=== PATIENT | female | born 1935 | race Two or more races ===

== ENCOUNTER 2016-04-25 17:35 | Inpatient (IN) | payer MEDICARE, MEDICAID ==
[~2016-04-25] VITALS: Ht 160 cm; Wt 61.7 kg
[~2016-04-25 17:35] MED LIST: ASPIR 8181 MG ORAL; ATIVAN0.5 MG ORAL; ATORVASTATIN CA10 MG ORAL; ATORVASTATIN CA40 MG ORAL; BACTRIM-DS1 EA ORAL; BENADRYL25 M3 PO; BENADRYL50 MG/ML IM; BISACODYL5 MG ORAL; CEFAZOLIN2 GM/1001 IV; CEFTRIAXON2 GM/50 ML IV; CEFTRIAXONE2 G1 IVPB; CEFTRIAXONE2 G2 IV; CLONIDINE HCL0.1 MG PO; CLONIDINE0.1 MG GT; CLONIDINE0.1 MG PO; COLACE100 MG ORAL; CRANBERRY450 M3 PO; CRANBERRY500 M4 PO; DEXTROSE 50%-WA50 M1 IV; DUONEB 0.5-3(2.53 ML HHN; FEOSOL325 MG ORAL; FUROSEMIDE10 MG/1 M1 IJ; GEODON20 MG ORAL; HEPARIN SO5000 UNIT2 SUBQ; HUMALOG100 UNIT/4 SUBQ; IBUPROFEN600 MG ORAL; IPRATROPIU0.2 MG/1 M HHN; LEVEMIR FL100 UNIT/1 SUBQ; LOPRESSOR1 MG/ML IV; LORAZEPAM0.5 MG ORAL; MAG-OXIDE400 M1 PO; METOPROLOL TART25 MG ORAL; MIRALAX17 G2 ORAL; MORPHINE 22 MG/1 ML IV; NEPHRO-VITE RX1 EAC1 PO; NORVASC10 MG ORAL; NOVOLOG100 UNIT/3 SUBQ; NUEDEXTA 20-101 EAC1 PO; OMEPRAZOLE20 M2 ORAL; PANTOPRAZOLE SO40 MG ORAL; PRILOSEC OTC20 MG ORAL; PROTONIX20 MG ORAL; RESTORIL15 MG ORAL; RESTORIL22.5 MG PO; ROCEPHIN2 GM IM; SALINE 10ML FLU10 ML IVF; TYLENOL EXTRA500 MG ORAL; TYLENOL325 MG ORAL; UTI-STAT L3875 MG/31 PO; ZOFRAN 4 MG4 MG/2 ML IV; ZOSYN 3.373.375 GM/1 IVPB; ZYPREXA5 MG ORAL; ZYPREXA7.5 MG ORAL
[2016-04-25 19:19] LABS: MEAN CORPUSCULAR HEMOGLOBIN 30.5 PG (27.0-31.0); MEAN CORPUSCULAR HGB CONC 31.4 G/DL (32.0-36.0); MEAN CORPUSCULAR VOLUME 97 FL (80-99); MEAN PLATELET VOLUME 6.7 FL (6.5-10.1); PLATELET COUNT 526 K/UL (150-450); RED BLOOD COUNT 4.85 M/UL (4.20-5.40); RED CELL DISTRIBUTION WIDTH 15.1 % (11.6-14.8)
[2016-04-25 19:21] LABS: WHITE BLOOD COUNT 22.9 K/UL (4.8-10.8)
[2016-04-25] MEDS ORDERED: Piperacillin/Tazobactam 3.375 GM in NS 110 ML IVPB ONE (19:30)
[2016-04-25] MEDS ORDERED: metroNIDAZOLE 500mg 100 ML IVPB ONE (19:30)
--- NOTE | 2016-04-25 19:33 | Emergency Room Report ---
History of Present Illness General Chief Complaint: Abnormal Labs Source: Medical Record, EMS Present Illness HPI The patient is sent in for abnormal labs. Apparently she's not had dialysis for over a week. G tube. The patient is post stroke and cannot communicate. She was discharged in February with these diagnoses: 1. Acute respiratory failure requiring bilevel positive airway pressure, resolved. 2. Acute on chronic renal failure likely due to diabetic and hypertensive kidney disease. 3. Congestive heart failure. 4. Diastolic dysfunction in exacerbation. 5. Chronic obstructive pulmonary disease exacerbation. 6. Hypertension. 7. Morbid obesity. 8. Acute deep venous thrombosis. 9. Non-ST elevated myocardial infarction. 10. Atrial fibrillation with rapid ventricular response. 11. Sepsis with Escherichia coli bacteremia. 12. Urinary tract infection with Escherichia coli. 13. Diabetes mellitus, out of control with diabetic nephropathy. 14. Sacral stage III pressure ulcer, present on admission. Allergies: Coded Allergies: No Known Allergies (Unverified , 01/06/14) Patient History Limited by: medical condition Past Medical History: see triage record Past Surgical History: other - vascath Social History Narrative SNF Reviewed Nursing Documentation: PMH: Agreed, PSxH: Agreed Nursing Documentation-PMH Hx Cardiac Problems: Yes - anemia, hyperlipidemia, osteoarthritis Hx Hypertension: Yes Hx COPD: Yes Hx Diabetes: Yes Hx Cancer: No Hx Gastrointestinal Problems: Yes - severe protien calorie malnutrition Hx Dialysis: No - ckd Hx Neurological Problems: Yes - Dementia, Encephalopathy Hx Dementia: No Hx Dizziness: Yes Hx Syncope: Yes Review of Systems All Other Systems: limited Physical Exam Vital Signs Date Time Temp Pulse Resp B/P Pulse Ox O2 Delivery O2 Flow Rate FiO2 04/25/16 17:28 99.5 98 20 146/74 99 Nasal Cannula 2.0 Sp02 EP Interpretation: reviewed, normal General Appearance: well appearing, no apparent distress, GCS 15 Head: normocephalic Eyes: bilateral eye PERRL, bilateral eye normal inspection ENT: moist mucus membranes Neck: supple Respiratory: lungs clear, normal breath sounds, other - vascath R Cardiovascular #1: regular rate, rhythm, edema - trace Cardiovascular #2: 2+ radial (R) Gastrointestinal: normal inspection, normal bowel sounds, non tender, no mass, non-distended Musculoskeletal: other - contracture Neurologic: responsive, aphasia, motor weakness - R hemiparesis Psychiatric: depressed affect Skin: normal inspection, warm/dry Medical Decision Making Diagnostic Impression: Primary Impression: Sepsis Qualified Codes: A41.9 - Sepsis, unspecified organism Additional Impressions: Acute hypernatremia UTI (urinary tract infection) Qualified Codes: N10 - Acute pyelonephritis ESRD (end stage renal disease) ER Course This is an extremely complicated patient as she is unable to give a history. Evaluation is undertaken with labs and EKG, chest x-ray. She needed to have acute dialysis at this time. The patient's white count returns extremely high. Cultures will be obtained and also the patient will be started on antibiotics. The x-ray may have increased frye in the right base although this is difficult because the patient has a history of renal failure. Other considerations are line sepsis and UTI. Evidence of pyuria. Also evidence of ESRD, though no emergent dialysis indicated. Improved with treatment and more responsive. Admit med, Dr. Swift. (Upgraded to tele by Dr. Khalil). Laboratory Tests Test 04/25/16 18:50 04/25/16 19:40 White Blood Count 22.9 K/UL (4.8-10.8) *H Red Blood Count 4.85 M/UL (4.20-5.40) Hemoglobin 14.8 G/DL (12.0-16.0) Hematocrit 47.0 % (37.0-47.0) Mean Corpuscular Volume 97 FL (80-99) Mean Corpuscular Hemoglobin 30.5 PG (27.0-31.0) Mean Corpuscular Hemoglobin Concent 31.4 G/DL (32.0-36.0) L Red Cell Distribution Width 15.1 % (11.6-14.8) H Platelet Count 526 K/UL (150-450) H Mean Platelet Volume 6.7 FL (6.5-10.1) Neutrophils (%) (Auto) % (45.0-75.0) Lymphocytes (%) (Auto) % (20.0-45.0) Monocytes (%) (Auto) % (1.0-10.0) Eosinophils (%) (Auto) % (0.0-3.0) Basophils (%) (Auto) % (0.0-2.0) Differential Total Cells Counted 100 Neutrophils % (Manual) 70 % (45-75) Lymphocytes % (Manual) 26 % (20-45) Monocytes % (Manual) 4 % (1-10) Eosinophils % (Manual) 0 % (0-3) Basophils % (Manual) 0 % (0-2) Band Neutrophils 0 % (0-8) Platelet Estimate Increased H Platelet Morphology Normal Polychromasia 1+ Anisocytosis 1+ Macrocytosis 1+ Prothrombin Time 10.6 SEC (9.30-11.50) Prothrombin Time INR 1.0 (0.9-1.1) PTT 25 SEC (23-33) Sodium Level 163 mEQ/L (135-145) *H Potassium Level 4.3 mEQ/L (3.4-4.9) Chloride Level 113 mEQ/L (98-107) H Carbon Dioxide Level 30 mEQ/L (20-30) Anion Gap 20 (5-15) H Blood Urea Nitrogen 132 mg/dL (7-23) H Creatinine 3.8 mg/dL (0.5-0.9) H Estimate Glomerular Filtration Rate mL/min (>60) Glucose Level 297 mg/dL (74-106) H Lactic Acid Level 1.90 mmol/L (0.66-2.22) Calcium Level 10.4 mg/dL (8.6-10.2) H Total Bilirubin 0.2 mg/dL (0.0-1.2) Aspartate Amino Transferase (AST) 56 U/L (5-40) H Alanine Aminotransferase (ALT) 82 U/L (3-33) H Alkaline Phosphatase 100 U/L (35-104) Total Creatine Kinase 69 U/L (26-140) Troponin I < 0.30 ng/mL (<=0.30) Pro-B-Type Natriuretic Peptide 8341 pg/mL (0-450) H Total Protein 8.4 g/dL (6.6-8.7) Albumin 3.9 g/dL (3.5-5.2) Globulin 4.5 g/dL Albumin/Globulin Ratio 0.8 (1.0-2.7) L Urine Color Yellow Urine Appearance Slightly cloudy Urine pH 5 (4.5-8.0) Urine Specific [place] 1.015 (1.005-1.035) Urine Protein 4+ (NEGATIVE) H Urine Glucose (UA) 2+ (NEGATIVE) H Urine Ketones Negative (NEGATIVE) Urine Occult Blood 1+ (NEGATIVE) H Urine Nitrite Negative (NEGATIVE) Urine Bilirubin Negative (NEGATIVE) Urine Urobilinogen Normal MG/DL (0.0-1.0) Urine Leukocyte Esterase 2+ (NEGATIVE) H Urine RBC 2-4 /HPF (0 - 2) H Urine WBC 40-60 /HPF (0 - 2) H Urine Squamous Epithelial Cells Few /LPF (NONE/OCC) Urine Bacteria Many /HPF (NONE) H Urine Yeast Many /HPF (NONE) H EKG Diagnostic Results Rate: normal Rhythm: NSR ST Segments: no acute changes Rhythm Strip Diag. Results EP Interpretation: yes Rhythm: NSR, no PVC's, no ectopy Chest X-Ray Diagnostic Results EP Interpretation: Yes Findings: no effusion, no pneumothorax, other - increase frye R Number of Views: 1 Last Vital Signs Date Time Temp Pulse Resp B/P Pulse Ox O2 Delivery O2 Flow Rate FiO2 04/26/16 01:14 172/74 04/26/16 00:40 97.7 87 16 97 Room Air 04/26/16 00:30 2.0 Status: improved Disposition: ADMITTED INPATIENT Condition: Serious Referrals: FRANDY SWIFT (PCP) Conor Baez M.D. Apr 25, 2016 19:33
[2016-04-25 19:35] LABS: PROTHROMBIN TIME 10.6 SEC (9.30-11.50)
[2016-04-25] MEDS ORDERED: D5W 275 ML ONE (19:45)
[2016-04-25] MEDS ORDERED: NS 110 ML ONE (19:45)
[2016-04-25] MEDS ORDERED: Zosyn 3.375gm inj ONE (19:45)
[2016-04-25] MEDS: Vancomycin 1 GM in D5W 275 ML IVPB ONE ×2 (19:45→21:45)
[2016-04-25] MEDS ORDERED: Vancomycin 1gm inj IVPB ONE (19:45)
[2016-04-25 19:50] LABS: ALANINE AMINOTRANSFERASE 82 U/L (3-33); ALBUMIN/GLOBULIN RATIO 0.8 (1.0-2.7); ASPARTATE AMINO TRANSFERASE 56 U/L (5-40); CALCIUM 10.4 mg/dL (8.6-10.2); CARBON DIOXIDE 30 mEQ/L (20-30); CHLORIDE 113 mEQ/L (98-107); CREATININE 3.8 mg/dL (0.5-0.9); HEMOLYSIS 0; POTASSIUM 4.3 mEQ/L (3.4-4.9); TOTAL PROTEIN 8.4 g/dL (6.6-8.7); TROPONIN I < 0.30 ng/mL (<=0.30)
[2016-04-25 20:06] LABS: ANION GAP 20 (5-15)
[2016-04-25 20:20] LABS: SODIUM 163 mEQ/L (135-145)
[2016-04-25 20:22] LABS: APPEARANCE,URINE SLIGHTLY CLOUDY; KETONES,URINE NEGATIVE (NEGATIVE); LEUKOCYTE ESTERASE ,URINE 2+ (NEGATIVE); NITRITE,URINE NEGATIVE (NEGATIVE); PH,URINE 5 (4.5-8.0); PROTEIN,URINE 4+ (NEGATIVE); UROBILINOGEN,URINE NORMAL MG/DL (0.0-1.0)
[2016-04-25 20:27] LABS: LYMPHOCYTES % (MANUAL) 26 % (20-45); NEUTROPHILS % (MANUAL) 70 % (45-75); TOTAL CELLS COUNTED 100
[2016-04-25 20:28] LABS: BAND NEUTROPHILS % (MANUAL) 0 % (0-8); BASOPHILS % (MANUAL) 0 % (0-2); EOSINOPHILS % (MANUAL) 0 % (0-3); PLATELET ESTIMATE INCREASED
[2016-04-25 20:29] LABS: ANISOCYTOSIS 1+; MACROCYTES 1+; PLATELET MORPHOLOGY NORMAL; POLYCHROMASIA 1+
[2016-04-25 20:34] LABS: BACTERIA,URINE MANY /HPF; SQUAMOUS EPITHELIAL CELL,UR FEW /LPF (NONE/OCC); WBC,URINE 40-60 /HPF (0 - 2); YEAST,URINE MANY /HPF
[2016-04-25 21:48] VITALS: BP 166/63
[2016-04-25] MEDS ORDERED: Nitroglycerin Subl 0.4mg tab (Bottle Of 25) SL PRN (22:45)
[2016-04-25] MEDS ORDERED: Miralax 17gm pkt ORAL PRN (22:45)
[2016-04-25] MEDS ORDERED: Morphine Sulfate 2mg/ml Inj IVP PRN (22:45)
[2016-04-25] MEDS ORDERED: DuoNeb 0.5-3(2.5)mg/3ml neb HHN PRN (22:45)
[2016-04-25 23:35] VITALS: BP 159/62
[2016-04-26] VITALS (7 sets, daily range): BP systolic 122–172; BP diastolic 50–78
[2016-04-26] MEDS ORDERED: Vancomycin 1 GM in D5W 275 ML IV SCH (00:30)
[2016-04-26] MEDS ORDERED: Cefepime 1gm vial ONE (02:36)
[2016-04-26] MEDS: Cefepime 1gm/D5W 55ml IVPB SCH ×2 (02:44)
[2016-04-26 02:48] LABS: APPEARANCE,URINE CLOUDY; KETONES,URINE NEGATIVE (NEGATIVE); LEUKOCYTE ESTERASE ,URINE 3+ (NEGATIVE); NITRITE,URINE NEGATIVE (NEGATIVE); PH,URINE 5 (4.5-8.0); PROTEIN,URINE 3+ (NEGATIVE); UROBILINOGEN,URINE NORMAL MG/DL (0.0-1.0)
[2016-04-26 03:02] LABS: BACTERIA,URINE MANY /HPF; SQUAMOUS EPITHELIAL CELL,UR FEW /LPF (NONE/OCC); WBC,URINE TNTC /HPF (0 - 2); YEAST,URINE MANY /HPF
[2016-04-26] MEDS: NovoLOG Insulin Flexpen SUBQ SCH ×4 (06:24→21:36)
--- NOTE | 2016-04-26 08:56 | Infectious Diseases Prog Note ---
Assessment/Plan Problems: (1) Sepsis Assessment & Plan: due to UTI, and foot infection, will start zyvox and cefepime empirically, send blood culture (2) Gangrene of foot Assessment & Plan: recommend field reviewer eval, will order ESR, CRP and MRI of the foot to rule out osteomyelitis (3) Open wnd foot-complicated Assessment & Plan: with escars, consult field reviewer, continue local wound care and off loading (4) DM (diabetes mellitus) Assessment & Plan: recommend tight glycemic control to keep blood glucose between 80-120 (5) UTI (urinary tract infection) Assessment & Plan: on cefepime, await culture (6) Acute hypernatremia Assessment & Plan: due to dehydration, continue IVF, monitor sodium level, and electrolytes Subjective Allergies: Coded Allergies: No Known Allergies (Unverified , 01/06/14) Objective Vital Signs Last 24 Hour Vital Signs Date Time Temp Pulse Resp B/P Pulse Ox O2 Delivery O2 Flow Rate FiO2 04/26/16 08:11 97.7 75 18 134/60 98 Room Air 04/26/16 06:23 159/72 04/26/16 04:00 78 04/26/16 04:00 97.6 76 20 138/59 95 Room Air 04/26/16 01:14 172/74 04/26/16 01:00 87 04/26/16 00:40 97.7 87 16 172/74 97 Room Air 04/26/16 00:30 98.4 90 20 161/78 95 Room Air 2.0 04/26/16 00:10 98.4 90 20 161/78 95 Room Air 2.0 04/25/16 23:35 98.4 93 19 159/62 99 Room Air 04/25/16 21:48 99.0 93 19 166/63 96 Room Air 04/25/16 17:28 99.5 98 20 146/74 99 Nasal Cannula 2.0 Height (Feet): 5 Height (Inches): 3.00 Weight (Pounds): 133 Laboratory Tests Test 04/25/16 18:50 04/25/16 19:40 04/26/16 02:30 White Blood Count 22.9 K/UL (4.8-10.8) *H Red Blood Count 4.85 M/UL (4.20-5.40) Hemoglobin 14.8 G/DL (12.0-16.0) Hematocrit 47.0 % (37.0-47.0) Mean Corpuscular Volume 97 FL (80-99) Mean Corpuscular Hemoglobin 30.5 PG (27.0-31.0) Mean Corpuscular Hemoglobin Concent 31.4 G/DL (32.0-36.0) L Red Cell Distribution Width 15.1 % (11.6-14.8) H Platelet Count 526 K/UL (150-450) H Mean Platelet Volume 6.7 FL (6.5-10.1) Neutrophils (%) (Auto) % (45.0-75.0) Lymphocytes (%) (Auto) % (20.0-45.0) Monocytes (%) (Auto) % (1.0-10.0) Eosinophils (%) (Auto) % (0.0-3.0) Basophils (%) (Auto) % (0.0-2.0) Differential Total Cells Counted 100 Neutrophils % (Manual) 70 % (45-75) Lymphocytes % (Manual) 26 % (20-45) Monocytes % (Manual) 4 % (1-10) Eosinophils % (Manual) 0 % (0-3) Basophils % (Manual) 0 % (0-2) Band Neutrophils 0 % (0-8) Platelet Estimate Increased H Platelet Morphology Normal Polychromasia 1+ Anisocytosis 1+ Macrocytosis 1+ Prothrombin Time 10.6 SEC (9.30-11.50) Prothromb Time International Ratio 1.0 (0.9-1.1) Activated Partial Thromboplast Time 25 SEC (23-33) Sodium Level 163 mEQ/L (135-145) *H Potassium Level 4.3 mEQ/L (3.4-4.9) Chloride Level 113 mEQ/L (98-107) H Carbon Dioxide Level 30 mEQ/L (20-30) Anion Gap 20 (5-15) H Blood Urea Nitrogen 132 mg/dL (7-23) H Creatinine 3.8 mg/dL (0.5-0.9) H Estimat Glomerular Filtration Rate mL/min (>60) Glucose Level 297 mg/dL (74-106) H Lactic Acid Level 1.90 mmol/L (0.66-2.22) Calcium Level 10.4 mg/dL (8.6-10.2) H Total Bilirubin 0.2 mg/dL (0.0-1.2) Aspartate Amino Transf (AST/SGOT) 56 U/L (5-40) H Alanine Aminotransferase (ALT/SGPT) 82 U/L (3-33) H Alkaline Phosphatase 100 U/L (35-104) Total Creatine Kinase 69 U/L (26-140) Troponin I < 0.30 ng/mL (<=0.30) Pro-B-Type Natriuretic Peptide 8341 pg/mL (0-450) H Total Protein 8.4 g/dL (6.6-8.7) Albumin 3.9 g/dL (3.5-5.2) Globulin 4.5 g/dL Albumin/Globulin Ratio 0.8 (1.0-2.7) L Urine Color Yellow Yellow Urine Appearance Slightly cloudy Cloudy Urine pH 5 (4.5-8.0) 5 (4.5-8.0) Urine Specific [place] 1.015 (1.005-1.035) 1.015 (1.005-1.035) Urine Protein 4+ (NEGATIVE) H 3+ (NEGATIVE) H Urine Glucose (UA) 2+ (NEGATIVE) H 1+ (NEGATIVE) H Urine Ketones Negative (NEGATIVE) Negative (NEGATIVE) Urine Occult Blood 1+ (NEGATIVE) H 4+ (NEGATIVE) H Urine Nitrite Negative (NEGATIVE) Negative (NEGATIVE) Urine Bilirubin Negative (NEGATIVE) Negative (NEGATIVE) Urine Urobilinogen Normal MG/DL (0.0-1.0) Normal MG/DL (0.0-1.0) Urine Leukocyte Esterase 2+ (NEGATIVE) H 3+ (NEGATIVE) H Urine RBC 2-4 /HPF (0 - 2) H 10-15 /HPF (0 - 2) H Urine WBC 40-60 /HPF (0 - 2) H Tntc /HPF (0 - 2) H Urine Squamous Epithelial Cells Few /LPF (NONE/OCC) Few /LPF (NONE/OCC) Urine Bacteria Many /HPF (NONE) H Many /HPF (NONE) H Urine Yeast Many /HPF (NONE) H Many /HPF (NONE) H Urine Eosinophils Few Urine Osmolality Pending Urine Random Sodium 35 mmol/L Urine Random Chloride 17 mmol/L Urine Potassium Timed 37 mmol/L Current Medications Medications (Trade) Dose Ordered Sig/Issa Route PRN Reason Start Time Stop Time Status Last Admin Dose Admin Acetaminophen (Tylenol) 650 mg Q4H PRN ORAL fever 04/25/16 22:45 05/25/16 22:44 Albuterol/ Ipratropium 3 ml 3 ml EVERY 4 HOURS PRN HHN Shortness of Breath 04/25/16 22:45 04/30/16 22:44 Amlodipine Besylate (Norvasc) 10 mg DAILY ORAL 04/26/16 09:00 05/26/16 08:59 Cefepime HCl 1 gm/ Dextrose 55 ml @ 110 mls/hr Q24H IVPB 04/26/16 03:00 05/03/16 02:59 04/26/16 02:44 Clonidine HCl (Catapres) 0.1 mg Q6HR GT 04/26/16 00:00 05/26/16 00:00 04/26/16 06:23 Dextromethorphan/ Quinidine (Nuedexta Capsule) 1 cap BID ORAL 04/26/16 09:00 05/26/16 08:59 UNV Dextrose STAT PRN IV Hypoglycemia 04/25/16 22:45 05/25/16 22:44 Heparin Sodium (Porcine) (Heparin 5000 units/ml) 5,000 units EVERY 12 HOURS SUBQ 04/26/16 09:00 05/26/16 08:59 Insulin Aspart (NovoLOG) BEFORE MEALS AND HS SUBQ 04/26/16 06:30 05/26/16 06:29 04/26/16 06:24 Linezolid (Zyvox) 300 ml @ 300 mls/hr Q12HR IVPB 04/26/16 09:00 05/03/16 08:59 UNV Morphine Sulfate (Morphine Sulfate) 2 mg EVERY 4 HOURS PRN IVP Moderate Pain (Pain Scale 4-6) 04/25/16 22:45 05/02/16 22:44 Nitroglycerin (Ntg) 0.4 mg Every 5 Minutes PRN SL Prn Chest Pain 04/25/16 22:45 05/25/16 22:44 Olanzapine (ZyPREXA) 7.5 mg DAILY ORAL 04/26/16 09:00 05/26/16 08:59 Ondansetron HCl (Zofran) 4 mg Q6H PRN IVP Nausea & Vomiting 04/25/16 22:45 05/25/16 22:44 Pantoprazole (Protonix) 40 mg EVERY 12 HOURS ORAL 04/26/16 09:00 05/26/16 08:59 Polyethylene Glycol (Miralax) 17 gm DAILYPRN PRN ORAL Constipation 04/25/16 22:45 05/25/16 22:44 Sodium Chloride 1,000 ml @ 75 mls/hr [id number] IV 04/26/16 01:00 05/26/16 00:59 04/26/16 01:54 Temazepam (Restoril) 15 mg HSPRN PRN ORAL Insomnia 04/25/16 22:45 05/02/16 22:44 Vancomycin HCl/ Dextrose (Vancomycin/D5W) 275 ml @ 183.3 mls/ hr Q24H IV 04/26/16 00:30 05/01/16 00:29 UNV Ziprasidone (Geodon) 20 mg TWICE A DAY ORAL 04/26/16 09:00 05/26/16 08:59 Virginia Matamoros M.D. Apr 26, 2016 08:56
[2016-04-26] MEDS ORDERED: Cefepime HCl 2 GM in D5W 110 ML IV SCH (09:00)
[2016-04-26] MEDS ORDERED: Ziprasidone 20mg cap ORAL SCH (09:00)
[2016-04-26] MEDS ORDERED: Nuedexta Capsule 20/10mg ORAL SCH (09:00)
[2016-04-26] MEDS: OLANZapine 2.5mg tab ORAL SCH (09:03)
[2016-04-26] MEDS: Heparin 5000 units/ml inj SUBQ SCH ×2 (09:06→21:37)
[2016-04-26] MEDS ORDERED: D5 1/4NS 1000ml 1,000 ML IV SCH (09:30)
--- NOTE | 2016-04-26 09:43 | General Progress Note ---
Progress Note Progress Note [id number] full note dictated DAINA AVELAR Apr 26, 2016 09:43
[2016-04-26 10:06] LABS: MEAN CORPUSCULAR HEMOGLOBIN 29.9 PG (27.0-31.0); MEAN CORPUSCULAR HGB CONC 31.2 G/DL (32.0-36.0); MEAN CORPUSCULAR VOLUME 96 FL (80-99); MEAN PLATELET VOLUME 7.3 FL (6.5-10.1); PLATELET COUNT 420 K/UL (150-450); RED BLOOD COUNT 4.18 M/UL (4.20-5.40); RED CELL DISTRIBUTION WIDTH 15.1 % (11.6-14.8); WHITE BLOOD COUNT 18.2 K/UL (4.8-10.8)
[2016-04-26 10:26] LABS: ALANINE AMINOTRANSFERASE 67 U/L (3-33); ALBUMIN/GLOBULIN RATIO 0.9 (1.0-2.7); ANION GAP 18 (5-15); ASPARTATE AMINO TRANSFERASE 35 U/L (5-40); CALCIUM 9.4 mg/dL (8.6-10.2); CARBON DIOXIDE 27 mEQ/L (20-30); CHLORIDE 112 mEQ/L (98-107); CREATININE 3.4 mg/dL (0.5-0.9); HEMOLYSIS 6; POTASSIUM 3.9 mEQ/L (3.4-4.9); SODIUM 157 mEQ/L (135-145); TOTAL PROTEIN 6.9 g/dL (6.6-8.7)
[2016-04-26 10:41] LABS: ANISOCYTOSIS 1+; BAND NEUTROPHILS % (MANUAL) 1 % (0-8); BASOPHILS % (MANUAL) 0 % (0-2); EOSINOPHILS % (MANUAL) 1 % (0-3); LYMPHOCYTES % (MANUAL) 10 % (20-45); NEUTROPHILS % (MANUAL) 80 % (45-75); PLATELET ESTIMATE ADEQUATE; PLATELET MORPHOLOGY NORMAL; TOTAL CELLS COUNTED 100
[2016-04-26 10:42] LABS: HYPOCHROMASIA 1+
--- NOTE | 2016-04-26 11:36 | Diagnostic Imaging Report ---
Indication: Chest Pain Comparison: 02/14/16 A single view chest radiograph was obtained. Findings: There is right permacath present in the position. Heart is normal in size. Some prominence of the pulmonary tissue noted. Bones are osteopenic. Impression: No acute disease
--- NOTE | 2016-04-26 12:47 | Consultation ---
DATE OF CONSULTATION: 04/26/2016 NEPHROLOGY CONSULTATION CONSULTING PHYSICIAN: Sammi Lopez M.D. REFERRING PHYSICIAN: Liz Campbell REASON FOR CONSULTATION: Hypernatremia, acute renal failure and electrolyte imbalance. HISTORY OF PRESENT ILLNESS: The patient is an unfortunate 80-year-old female with past medical history significant for history of end-stage renal disease, on hemodialysis, but apparently, the patient did not receive a dialysis for a week prior to hospital visit. The patient found to have abnormal electrolytes including sodium of 163 and BUN of 132. The patient consequently was transferred to ER, was admitted in the hospital. I was called for management of renal disease and electrolyte imbalance. PAST MEDICAL HISTORY: Includin. History of end-stage renal disease. 2. History of anemia of chronic kidney disease. 3. Renal osteodystrophy. 4. Hypertension. 5. History of malleolar fracture of the left foot. 6. History of DVT. 7. History of IVC placement. 8. History of diabetes and hypertension. 9. History of non-ST elevation myocardial infarction. 10. History of COPD. 11. History of AFib. 12. History of diabetes. 13. History of sacral decubitus. 14. History of morbid obesity in the past. PAST SURGICAL HISTORY: 1. History of IVC filter placement. 2. History of PEG placement. MEDICATIONS: Includin. Amlodipine 10 mg p.o. daily. 2. Zyprexa 7.5 mg p.o. daily. 3. Protonix 40 mg p.o. daily. 4. Geodon 20 mg p.o. daily. 5. 300 mg p.o. daily. 6. Vancomycin 1 mg to be dosed by pharmacy. 7. Albuterol and Atrovent p.r.n. 8. Morphine sulfate 2 mg IV. 9. Zofran 4 mg IV. 10. Temazepam 15 mg p.r.n. 11. Nitroglycerin 0.4 mg. ALLERGIES: No known drug allergies. FAMILY HISTORY: Unknown due to the patient's condition and mental status. REVIEW OF SYSTEMS: Unable to obtain. The patient is only responsive to painful stimuli. PHYSICAL EXAMINATION: VITAL SIGNS: The patient has a temperature of 98.0 degrees, blood pressure of 172/74, pulse rate of 76, and respiratory rate of 18. HEENT/NECK: Head and neck: No JVP. No LAD. No thyromegaly. Extraocular movement intact. Pupils are reactive to light and accommodation. LUNGS: Decreased breathing sound on the both sides. CARDIAC: Regular rate and rhythm. S1 and S2. No murmur. No rub. ABDOMEN: Soft, nontender, and nondistended. EXTREMITIES: Left lower extremity is on cast. LABORATORY AND DIAGNOSTIC DATA: Laboratory values, the patient has sodium 163, potassium 4.3, chloride 113, bicarbonate 30, BUN of 132, creatinine 3.8, glucose of 297 and calcium of 10.4. AST of 54, ALT of 82, and alkaline phosphatase of 100. BNP of 8341. Serial WBC count of 22.9, hemoglobin of 14, hematocrit of 47, and platelet count of 552,000. UA revealed specific gravity of 1015, protein 3+, glucose 1+, blood 4+, WBCs are too many to count, RBCs 10-15. ASSESSMENT: 1. Hypernatremia. 2. End-stage renal disease based on the patient evaluation. 3. Hypercalcemia. 4. Severe dehydration. 5. Elevated white blood cell count and sepsis. PLAN: For patient to change IV fluids to normal D5 quarter, give free water via G-tube. I would plan for patient to receive dialysis. I would check the urine study. I would repeat ultrasound of the kidney. We would avoid any NSAID or nephrotoxic. Monitor renal function and electrolytes closely. Again, I would like to thank, Dr. Tavon Lyn, for allowing me to participate in the care of this patient. Sammi Lopez M.D. DR: Marie JOB#: [id number] CC:
--- NOTE | 2016-04-26 13:54 | Wound Care Consultation ---
Wound Assessment Wound Assessment #1: Wound Number: #1 Wound Present on Admission: Yes New Wound: No Status Change of Wound: No Wound Location Body Site Modif: right Wound Location Body Site: toe - 2nd Wound Type: scab Archana Test: Does not Archana Wound Thickness: Full Thickness Wound Length: 1.0 Wound Width: 1.0 Wound Depth: utd Percent of Wound Black/Brown: 100 Wound Drainage Amount: None Wound Drainage Odor: None/Absent Tissue Surrounding Wound: Intact Wound General Appearance: Necrotic - black scab present. Wound Assessment #2: Wound Number: #2 Wound Present on Admission: Yes New Wound: No Status Change of Wound: No Wound Location Body Site Modif: right, lower Wound Location Body Site: leg Wound Type: lesion-etiology unknown Archana Test: Does not Archana Wound Thickness: Full Thickness Wound Length: 2.0 Wound Width: 1.0 Wound Depth: utd Percent of Wound Bed Yellow/Wh: 50 Percent of Wound Black/Brown: 50 Wound Drainage Amount: None Wound Drainage Odor: None/Absent Tissue Surrounding Wound: Intact Wound General Appearance: Necrotic - 50 yellow , 50 black Wound Assessment #3: Wound Number: #3 Wound Present on Admission: Yes New Wound: No Status Change of Wound: No Wound Location Body Site Modif: right Wound Location Body Site: metatarsal head - 1st Wound Type: pressure ulcer Archana Test: Does not Archana Pressure Ulcer Stage: IV/unstageable Wound Thickness: Full Thickness Wound Length: 3.0 Wound Width: 2.0 Wound Depth: utd Percent of Wound Black/Brown: 100 Wound Drainage Amount: None Wound Drainage Odor: None/Absent Tissue Surrounding Wound: Erythemic Wound General Appearance: Necrotic Wound Assessment #4: Wound Number: #4 Wound Present on Admission: Yes New Wound: No Status Change of Wound: No Wound Location Body Site Modif: right, dorsal - aspect Wound Location Body Site: foot Wound Type: vascular issue w/vascular changes Archana Test: Does not Archana Wound Thickness: Full Thickness Wound Length: 4.0 Wound Width: 2.0 Wound Depth: utd Percent of Wound Black/Brown: 100 Wound Drainage Description: Serosanguineous Wound Drainage Amount: Scant Wound Drainage Odor: None/Absent Tissue Surrounding Wound: Erythemic Wound General Appearance: Necrotic Wound Assessment #5: Wound Number: #5 Wound Present on Admission: Yes New Wound: No Status Change of Wound: No Wound Location Body Site Modif: right, medial Wound Location Body Site: malleolus/ankle Wound Type: pressure ulcer Archana Test: Does not Archana Pressure Ulcer Stage: IV/unstageable Wound Thickness: Full Thickness Wound Length: 1.0 Wound Width: 1.0 Wound Depth: utd Percent of Wound [place]/Red: 10 Percent of Wound Black/Brown: 90 Wound Drainage Description: Serosanguineous Wound Drainage Amount: Scant Wound Drainage Odor: None/Absent Tissue Surrounding Wound: Erythemic Wound General Appearance: Reddened, Necrotic Wound Assessment #6: Wound Number: #6 Wound Present on Admission: Yes New Wound: No Status Change of Wound: No Wound Location Body Site Modif: right, medial, dorsal Wound Location Body Site: foot Wound Type: vascular issue w/vascular changes Archana Test: Does not Archana Wound Thickness: Full Thickness Wound Length: 2.0 Wound Width: 2.0 Percent of Wound Bed Yellow/Wh: 90 Percent of Wound Black/Brown: 10 Wound Drainage Description: Serosanguineous Wound Drainage Amount: Scant Wound Drainage Odor: None/Absent Tissue Surrounding Wound: Erythemic Wound General Appearance: Necrotic Wound Assessment #7: Wound Number: #7 Wound Present on Admission: Yes New Wound: No Status Change of Wound: No Wound Location Body Site Modif: right, medial Wound Location Body Site: heel Wound Type: pressure ulcer - scattered Archana Test: Does not Archana Pressure Ulcer Stage: IV/unstageable Wound Thickness: Full Thickness Wound Length: 4.0 Wound Width: 4.0 Wound Depth: utd Percent of Wound Black/Brown: 100 Wound Drainage Amount: None Wound Drainage Odor: None/Absent Tissue Surrounding Wound: Erythemic Wound General Appearance: Necrotic Wound Assessment #8: Wound Number: #8 Wound Present on Admission: Yes New Wound: No Status Change of Wound: No Wound Location Body Site Modif: right Wound Location Body Site: toe - 5th toe extending to metatarsal head Wound Type: other - dry gangrene Archana Test: Does not Archana Wound Thickness: Full Thickness Wound Length: 6.0 Wound Width: 2.5 Wound Depth: utd Percent of Wound Black/Brown: 100 Wound Drainage Amount: None Wound Drainage Odor: None/Absent Tissue Surrounding Wound: Erythemic Wound General Appearance: Blackened, Necrotic Wound Assessment #9: Wound Number: #9 Wound Present on Admission: Yes New Wound: No Status Change of Wound: No Wound Location Body Site Modif: right, mid, lateral Wound Location Body Site: foot Wound Type: pressure ulcer Archana Test: Does not Archana Pressure Ulcer Stage: IV/unstageable Wound Thickness: Full Thickness Wound Length: 4.0 Wound Width: 4.0 Wound Depth: utd Percent of Wound Black/Brown: 100 Wound Drainage Description: Serosanguineous Wound Drainage Amount: Scant Wound Drainage Odor: None/Absent Tissue Surrounding Wound: Erythemic Wound General Appearance: Necrotic Wound Assessment #10: Wound Number: #10 Wound Present on Admission: Yes New Wound: No Status Change of Wound: No Wound Location Body Site Modif: right, lateral Wound Location Body Site: heel Wound Type: pressure ulcer - scattered Archana Test: Does not Archana Pressure Ulcer Stage: IV/unstageable Wound Thickness: Full Thickness Wound Length: 4.0 Wound Width: 2.0 Wound Depth: utd Percent of Wound Black/Brown: 100 Wound Drainage Amount: None Wound Drainage Odor: None/Absent Tissue Surrounding Wound: Erythemic Wound General Appearance: Reddened, Necrotic Wound Assessment #11: Wound Number: #11 Wound Present on Admission: Yes New Wound: No Status Change of Wound: No Wound Location Body Site Modif: right, lateral Wound Location Body Site: malleolus/ankle Wound Type: pressure ulcer Archana Test: Does not Archana Pressure Ulcer Stage: IV/unstageable Wound Thickness: Full Thickness Wound Length: 0.5 Wound Width: 0.5 Wound Depth: utd Percent of Wound Black/Brown: 100 Wound Drainage Odor: None/Absent Tissue Surrounding Wound: Intact Wound General Appearance: Necrotic Wound Assessment #12: Wound Number: #12 Wound Present on Admission: Yes New Wound: No Status Change of Wound: No Wound Location Body Site Modif: posterior Wound Location Body Site: other - achilles tendon Wound Type: pressure ulcer Archana Test: Does not Archana Pressure Ulcer Stage: IV/unstageable Wound Thickness: Full Thickness Wound Length: 5.0 Wound Width: 1.0 Wound Depth: utd Percent of Wound Black/Brown: 100 Wound Drainage Amount: None Wound Drainage Odor: None/Absent Tissue Surrounding Wound: Erythemic Wound General Appearance: Reddened, Necrotic Wound Comment #1 Right second toe scab. #2 Right lower leg lesion-etiology unknown. #3 Right 1st Metatarsal Head Pressure Ulcer Stage Iv/Unstageable. #4 Right Dorsal Aspect of Foot Vascular Wound. #5 Right Medial Malleolus Pressure Ulcer Stage IV/Unstageable. #6 Right Medial Dorsal Foot Vascular Wound. #7 Right Medial Heel Scattered Pressure Ulcers Stage IV/Unstageable. #8 Right 5th Toe Extending to Metatarsal head Gangrene- Dry. #9 Right Mid Lateral Foot Pressure Ulcer Stage IV/Unstageable. #10 Right Lateral Heel Scattered Pressure Ulcers Stage IV/Unstageable. #11 Right Lateral Malleolus Pressure Ulcer Stage IV/Unstageable. #12 Posterior Achilles Pressure Ulcer Stage IV/Unstageable-Dry #13 Right and Left Buttock Scattered present with Full thickness scar tissue. Recommendation -FOLLOW UP WITH PODIATRY. -Local wound care as ordered. -Optimize Nutrition. -Offload right Foot and heel. -Heel Protectors. -Apply low air loss Overlay Mattress. -Turn and reposition. -Keep clean and dry. -Assess and follow up with MD for any changes noted. NICA WOMACK Apr 26, 2016 13:54
--- NOTE | 2016-04-26 14:01 | Wound Care Consultation ---
Wound Assessment Wound Assessment #1: Wound Number: #1 Wound Present on Admission: Yes New Wound: No Status Change of Wound: No Wound Location Body Site: sacral Wound Type: pressure ulcer Archana Test: Does not Archana Pressure Ulcer Stage: I Wound Length: 4.0 Wound Width: 4.0 Percent of Wound [place]/Red: 100 Wound Drainage Amount: None Wound Drainage Odor: None/Absent Tissue Surrounding Wound: Erythemic Wound General Appearance: Reddened Wound Assessment #2: Wound Number: #2 Wound Present on Admission: Yes New Wound: No Status Change of Wound: No Wound Location Body Site Modif: right Wound Location Body Site: buttocks Wound Type: pressure ulcer Archana Test: Does not Archana Pressure Ulcer Stage: I Wound Length: 2.0 Wound Width: 2.0 Percent of Wound [place]/Red: 100 Wound Drainage Amount: None Wound Drainage Odor: None/Absent Tissue Surrounding Wound: Erythemic Wound General Appearance: Reddened Wound Assessment #3: Wound Number: #3 Wound Present on Admission: Yes New Wound: No Status Change of Wound: No Wound Location Body Site Modif: left Wound Location Body Site: buttocks Wound Type: pressure ulcer Archana Test: Does not Archana Pressure Ulcer Stage: I Wound Length: 2.0 Wound Width: 2.0 Percent of Wound [place]/Red: 100 Wound Drainage Amount: None Wound Drainage Odor: None/Absent Tissue Surrounding Wound: Erythemic Wound General Appearance: Reddened Wound Comment #1 Sacral pressure ulcer stage I. #2 Right buttocks pressure Ulcer stage I. #3 Left buttocks pressure Ulcer stage I Recommendation. -Turn and reposition. -Apply low air loss overlay mattress. -Provide local wound care as ordered. -Offload affected areas. -Keep clean and dry. -Assess and follow up with Md for any changes noted. NICA WOMACK Apr 26, 2016 14:01
--- NOTE | 2016-04-26 14:15 | Diagnostic Imaging Report ---
Indication: many wounds. concern for osteomyelitis. O Technique: Right ankle/hind foot imaging utilizing multiplanar T1 fast spin-echo, proton and T2 fast spin-echo with fat saturation, and STIR. Comparison: None Findings: Bone marrow signal is well maintained attending: Hindfoot. There is no evidence of osteomyelitis, abscess or significant soft tissue swelling. Study was not performed for evaluation of ligaments and tendons are internal derangement. Achilles tendon and plantar aponeurosis appear unremarkable. No joint effusion identified. Impression: No evidence of osteomyelitis or abscess.
--- NOTE | 2016-04-26 15:31 | Consultation ---
History of Present Illness General Date patient seen: Apr 26, 2015 Chief Complaint: Abnormal Labs Reason for Consultation: dyspnea Present Illness HPI 80 year old female with hx of ESRF, dementia, Gtube, anxiety, [facility] resident LOTUS because of increasing stupor and abnormal labs. Patient can't give any history and all information is obtained from the chart. Pt was diagnosed to have septis and admitted to telemetry. Allergies: Coded Allergies: No Known Allergies (Unverified , 01/06/14) Medication History Scheduled Amlodipine Besylate (Norvasc), 10 MG ORAL DAILY, (Reported) Amlodipine Besylate (Norvasc), 10 MG ORAL DAILY, (Reported) Atorvastatin Calcium* (Atorvastatin Calcium*), 40 MG ORAL BEDTIME, (Reported) Ceftriaxone Na/Dextrose,Iso (Ceftriaxone 2 Gm Piggyback), 2 GM IV DAILY, ( Reported) Ceftriaxone Sod (Ceftriaxone), 2 GM IM DAILY, (Reported) Ceftriaxone Sodium (Ceftriaxone), 2 GM IV DAILY, (Reported) Ceftriaxone Sodium (Ceftriaxone), 2 GM IVPB DAILY, (Reported) Clonidine HCl (Clonidine HCl), 0.1 MG GT Q6HR Cran/Vitc/Mannose/Inulin/Brom (Uti-Stat Liquid), 3,875 MG PO BID, (Reported) Cranberry Extract (Cranberry), 450 MG PO DAILY, (Reported) Dextromethorphan Hbr/Quinidine (Nuedexta 20-10 Mg Capsule), 1 EACH PO BID, ( Reported) Dextrose 50 % In Water (Dextrose 50%-Water Vial), 50 ML IV NEEDED, (Reported) Docusate Sodium* (Docusate Sodium*), 100 MG GT TWICE A DAY, (Reported) Furosemide (Furosemide), 40 MG IJ DAILY, (Reported) Heparin Sod (Porcine) (Heparin Sodium*), 5,000 UNITS SUBQ EVERY 12 HOURS, ( Reported) Insulin Aspart* (Novolog*), 0 SUBQ AC, (Reported) Insulin Detemir (Levemir Flexpen), 20 UNITS SUBQ QHS, (Reported) Insulin Detemir (Levemir Flexpen), 10 SUBQ EVERY 12 HOURS, (Reported) Insulin Detemir (Levemir Flexpen), 30 SUBQ EVERY 12 HOURS, (Reported) Insulin Lispro (Humalog), 0 SUBQ BEFORE BREAKFAST, (Reported) Ipratropium/Albuterol Sulfate (DuoNeb 0.5-3(2.5)mg/3ml), 3 ML HHN Q4HR, ( Reported) Linezolid (Linezolid), 300 MG IV EVERY 12 HOURS, (Reported) Lorazepam* (Ativan*), 0.5 MG ORAL Q6HR, (Reported) Magnesium Oxide (Mag-Oxide), 400 MG PO BID, (Reported) Metoprolol Tartrate* (Metoprolol Tartrate*), 25 MG ORAL EVERY 12 HOURS, ( Reported) Olanzapine* (Zyprexa*), 7.5 MG ORAL HS, (Reported) Omeprazole Magnesium (Prilosec Otc), 20 MG ORAL DAILY, (Reported) Pantoprazole* (Pantoprazole*), 40 MG ORAL EVERY 12 HOURS, (Reported) Polyethylene Glycol 3350* (Miralax*), 17 GM ORAL BEDTIME, (Reported) Saline (Sodium Chloride), 10 ML IVF Q8HR, (Reported) Temazepam* (Restoril*), 15 MG ORAL BEDTIME, (Reported) [Diflucan], 200 MG IV DAILY, (Reported) Scheduled PRN Acetaminophen (Tylenol), 650 MG ORAL Q4HR PRN for Prn Pain/Headache/Temp > 101, (Reported) Acetaminophen* (Tylenol Extra Strength*), 500 MG ORAL Q6H PRN for Mild Pain/ Temp > 100.5, (Reported) Clonidine Hcl (Clonidine Hcl), 0.1 MG PO Q4HR PRN for For High Blood Pressure, ( Reported) Diphenhydramine Hcl (Diphenhydramine Hcl), 25 MG IJ EVERY 6 HOURS PRN for Itching, (Reported) Morphine Sulfate/Pf (Morphine 1 mg/2 ml Syringe), 2 MG IV EVERY 4 HOURS PRN for Severe Pain (Pain Scale 7-10), (Reported) Nitroglycerin (Nitroglycerin), 0.4 MG SL for Angina, (Reported) Ondansetron* (Zofran*), 4 MG IV Q6H PRN for Nausea & Vomiting, (Reported) Polyethylene Glycol 3350* (Miralax*), 17 GM ORAL DAILY PRN for Constipation, ( Reported) Miscellaneous Medications Amikacin Sulfate (Amikacin Sulfate*), 250 MG IJ, (Reported) Insulin Detemir (Levemir Flexpen), 0 SUBQ, (Reported) Insulin Detemir (Levemir Flexpen), 10 SUBQ, (Reported) Patient History Healthcare decision maker Azul Slade Resuscitation status Full Code Advanced Directive on File Yes Review of Systems Constitutional: Reports: fever, malaise, weakness Respiratory: Reports: SANTILLAN, shortness of breath, sputum, wheezing All Other Systems: negative except mentioned in HPI Physical Exam General Appearance: moderate distress Lines, tubes and drains: peripheral HEENT: normocephalic, atraumatic, PERRL Neck: non-tender Respiratory/Chest: chest wall non-tender, decreased breath sounds, rhonchi - bilaterally Breasts: no masses Cardiovascular/Chest: normal peripheral pulses, normal rate, regular rhythm Abdomen: normal bowel sounds, non tender, soft, no organomegaly Genitourinary/Rectal: normal genital exam, normal rectal exam Extremities: normal range of motion, non-tender, normal inspection Skin Exam: palled Neurologic: signal constructor II-XII grossly normal, responsive, disoriented, depressed affect Last 24 Hour Vital Signs Date Time Temp Pulse Resp B/P Pulse Ox O2 Delivery O2 Flow Rate FiO2 04/26/16 12:21 144/58 04/26/16 11:44 96.8 68 18 154/58 97 Room Air 04/26/16 09:45 76 16 Room Air 21 04/26/16 09:03 75 134/60 04/26/16 08:11 97.7 75 18 134/60 98 Room Air 04/26/16 06:23 159/72 04/26/16 04:00 78 04/26/16 04:00 97.6 76 20 138/59 95 Room Air 04/26/16 01:14 172/74 04/26/16 01:00 87 04/26/16 00:40 97.7 87 16 172/74 97 Room Air 04/26/16 00:30 98.4 90 20 161/78 95 Room Air 2.0 04/26/16 00:10 98.4 90 20 161/78 95 Room Air 2.0 04/25/16 23:35 98.4 93 19 159/62 99 Room Air 04/25/16 21:48 99.0 93 19 166/63 96 Room Air 04/25/16 17:28 99.5 98 20 146/74 99 Nasal Cannula 2.0 Intake and Output 04/25/16 04/26/16 18:59 06:59 Intake Total 1065 ml Output Total 340 ml Balance 725 ml Intake Free Water 100 ml IV Total 905 ml Other 60 ml Output Urine Total 340 ml Laboratory Tests Test 04/25/16 18:50 04/25/16 19:40 04/26/16 02:30 04/26/16 09:30 White Blood Count 22.9 K/UL (4.8-10.8) *H 18.2 K/UL (4.8-10.8) H Red Blood Count 4.85 M/UL (4.20-5.40) 4.18 M/UL (4.20-5.40) L Hemoglobin 14.8 G/DL (12.0-16.0) 12.5 G/DL (12.0-16.0) Hematocrit 47.0 % (37.0-47.0) 40.1 % (37.0-47.0) Mean Corpuscular Volume 97 FL (80-99) 96 FL (80-99) Mean Corpuscular Hemoglobin 30.5 PG (27.0-31.0) 29.9 PG (27.0-31.0) Mean Corpuscular Hemoglobin Concent 31.4 G/DL (32.0-36.0) L 31.2 G/DL (32.0-36.0) L Red Cell Distribution Width 15.1 % (11.6-14.8) H 15.1 % (11.6-14.8) H Platelet Count 526 K/UL (150-450) H 420 K/UL (150-450) Mean Platelet Volume 6.7 FL (6.5-10.1) 7.3 FL (6.5-10.1) Neutrophils (%) (Auto) % (45.0-75.0) % (45.0-75.0) Lymphocytes (%) (Auto) % (20.0-45.0) % (20.0-45.0) Monocytes (%) (Auto) % (1.0-10.0) % (1.0-10.0) Eosinophils (%) (Auto) % (0.0-3.0) % (0.0-3.0) Basophils (%) (Auto) % (0.0-2.0) % (0.0-2.0) Differential Total Cells Counted 100 100 Neutrophils % (Manual) 70 % (45-75) 80 % (45-75) H Lymphocytes % (Manual) 26 % (20-45) 10 % (20-45) L Monocytes % (Manual) 4 % (1-10) 8 % (1-10) Eosinophils % (Manual) 0 % (0-3) 1 % (0-3) Basophils % (Manual) 0 % (0-2) 0 % (0-2) Band Neutrophils 0 % (0-8) 1 % (0-8) Platelet Estimate Increased H Adequate Platelet Morphology Normal Normal Polychromasia 1+ Anisocytosis 1+ 1+ Macrocytosis 1+ Prothrombin Time 10.6 SEC (9.30-11.50) Prothromb Time International Ratio 1.0 (0.9-1.1) Activated Partial Thromboplast Time 25 SEC (23-33) Sodium Level 163 mEQ/L (135-145) *H 157 mEQ/L (135-145) H Potassium Level 4.3 mEQ/L (3.4-4.9) 3.9 mEQ/L (3.4-4.9) Chloride Level 113 mEQ/L (98-107) H 112 mEQ/L (98-107) H Carbon Dioxide Level 30 mEQ/L (20-30) 27 mEQ/L (20-30) Anion Gap 20 (5-15) H 18 (5-15) H Blood Urea Nitrogen 132 mg/dL (7-23) H 122 mg/dL (7-23) H Creatinine 3.8 mg/dL (0.5-0.9) H 3.4 mg/dL (0.5-0.9) H Estimat Glomerular Filtration Rate mL/min (>60) mL/min (>60) Glucose Level 297 mg/dL (74-106) H 382 mg/dL (74-106) H Lactic Acid Level 1.90 mmol/L (0.66-2.22) Calcium Level 10.4 mg/dL (8.6-10.2) H 9.4 mg/dL (8.6-10.2) Total Bilirubin 0.2 mg/dL (0.0-1.2) 0.4 mg/dL (0.0-1.2) Aspartate Amino Transf (AST/SGOT) 56 U/L (5-40) H 35 U/L (5-40) Alanine Aminotransferase (ALT/SGPT) 82 U/L (3-33) H 67 U/L (3-33) H Alkaline Phosphatase 100 U/L (35-104) 79 U/L (35-104) Total Creatine Kinase 69 U/L (26-140) Troponin I < 0.30 ng/mL (<=0.30) Pro-B-Type Natriuretic Peptide 8341 pg/mL (0-450) H Total Protein 8.4 g/dL (6.6-8.7) 6.9 g/dL (6.6-8.7) Albumin 3.9 g/dL (3.5-5.2) 3.3 g/dL (3.5-5.2) L Globulin 4.5 g/dL 3.6 g/dL Albumin/Globulin Ratio 0.8 (1.0-2.7) L 0.9 (1.0-2.7) L Urine Color Yellow Yellow Urine Appearance Slightly cloudy Cloudy Urine pH 5 (4.5-8.0) 5 (4.5-8.0) Urine Specific [place] 1.015 (1.005-1.035) 1.015 (1.005-1.035) Urine Protein 4+ (NEGATIVE) H 3+ (NEGATIVE) H Urine Glucose (UA) 2+ (NEGATIVE) H 1+ (NEGATIVE) H Urine Ketones Negative (NEGATIVE) Negative (NEGATIVE) Urine Occult Blood 1+ (NEGATIVE) H 4+ (NEGATIVE) H Urine Nitrite Negative (NEGATIVE) Negative (NEGATIVE) Urine Bilirubin Negative (NEGATIVE) Negative (NEGATIVE) Urine Urobilinogen Normal MG/DL (0.0-1.0) Normal MG/DL (0.0-1.0) Urine Leukocyte Esterase 2+ (NEGATIVE) H 3+ (NEGATIVE) H Urine RBC 2-4 /HPF (0 - 2) H 10-15 /HPF (0 - 2) H Urine WBC 40-60 /HPF (0 - 2) H Tntc /HPF (0 - 2) H Urine Squamous Epithelial Cells Few /LPF (NONE/OCC) Few /LPF (NONE/OCC) Urine Bacteria Many /HPF (NONE) H Many /HPF (NONE) H Urine Yeast Many /HPF (NONE) H Many /HPF (NONE) H Urine Eosinophils Few Urine Osmolality Pending Urine Random Sodium 35 mmol/L Urine Random Chloride 17 mmol/L Urine Potassium Timed 37 mmol/L Hypochromasia 1+ Vancomycin Level Trough 20.6 ug/mL (5.0-12.0) H Height (Feet): 5 Height (Inches): 3.00 Weight (Pounds): 133 Medications Current Medications Medications (Trade) Dose Ordered Sig/Issa Route PRN Reason Start Time Stop Time Status Last Admin Dose Admin Acetaminophen (Tylenol) 650 mg Q4H PRN ORAL fever 04/25/16 22:45 05/25/16 22:44 Albuterol/ Ipratropium (DuoNeb 0.5-3(2.5)mg/3ml) 3 ml EVERY 4 HOURS PRN HHN Shortness of Breath 04/25/16 22:45 04/30/16 22:44 Amlodipine Besylate (Norvasc) 10 mg DAILY ORAL 04/26/16 09:00 05/26/16 08:59 04/26/16 09:03 Cefepime HCl 1 gm/ Dextrose 55 ml @ 110 mls/hr Q24H IVPB 04/26/16 03:00 05/03/16 02:59 04/26/16 02:44 Clonidine HCl (Catapres) 0.1 mg Q6HR GT 04/26/16 00:00 05/26/16 00:00 04/26/16 12:21 Dextromethorphan/ Quinidine (Nuedexta Capsule) 1 cap BID ORAL 04/26/16 09:00 05/26/16 08:59 UNV Dextrose STAT PRN IV Hypoglycemia 04/25/16 22:45 05/25/16 22:44 Dextrose/Sodium Chloride (D5 0.2%NS 1000ml) 1,000 ml @ 75 mls/hr [id number] IV 04/26/16 11:00 05/26/16 10:59 Heparin Sodium (Porcine) (Heparin 5000 units/ml) 5,000 units EVERY 12 HOURS SUBQ 04/26/16 09:00 05/26/16 08:59 04/26/16 09:06 Insulin Aspart (NovoLOG) BEFORE MEALS AND HS SUBQ 04/26/16 06:30 05/26/16 06:29 04/26/16 12:11 Linezolid 300 ml @ 300 mls/hr Q12HR IVPB 04/26/16 12:00 05/03/16 11:59 04/26/16 12:21 Morphine Sulfate (Morphine Sulfate) 2 mg EVERY 4 HOURS PRN IVP Moderate Pain (Pain Scale 4-6) 04/25/16 22:45 05/02/16 22:44 Nitroglycerin (Ntg) 0.4 mg Every 5 Minutes PRN SL Prn Chest Pain 04/25/16 22:45 05/25/16 22:44 Olanzapine (ZyPREXA) 7.5 mg DAILY ORAL 04/26/16 09:00 05/26/16 08:59 04/26/16 09:03 Ondansetron HCl (Zofran) 4 mg Q6H PRN IVP Nausea & Vomiting 04/25/16 22:45 05/25/16 22:44 Pantoprazole (Protonix) 40 mg EVERY 12 HOURS ORAL 04/26/16 09:00 05/26/16 08:59 04/26/16 09:03 Polyethylene Glycol (Miralax) 17 gm DAILYPRN PRN ORAL Constipation 04/25/16 22:45 05/25/16 22:44 Temazepam (Restoril) 15 mg HSPRN PRN ORAL Insomnia 04/25/16 22:45 05/02/16 22:44 Ziprasidone (Geodon) 20 mg TWICE A DAY ORAL 04/26/16 09:00 05/26/16 08:59 04/26/16 09:03 Assessment/Plan Status: stable, progressing, hypovolemia Assessment/Plan Assessment/Plan Problem List: (1) Sepsis ICD Codes: A41.9 - Sepsis, unspecified organism SNOMED: 58571932 (2) UTI (urinary tract infection) ICD Codes: N39.0 - UTI (urinary tract infection) SNOMED: 30254023 (3) Acute hypernatremia ICD Codes: E87.0 - Hyperosmolality and hypernatremia SNOMED: 9348317 (4) Renal insufficiency ICD Codes: N28.9 - Disorder of kidney and ureter, unspecified SNOMED: 005412310 (5) [facility] resident ICD Codes: Z59.3 - Problems related to living in residential institution SNOMED: 109606668 (6) Open wnd foot-complicated ICD Codes: S91.309A - Unspecified open wound, unspecified foot, initial encounter SNOMED: 873575121 (7) Gangrene of foot ICD Codes: I96 - Gangrene, not elsewhere classified SNOMED: 408018621 (8) HTN (hypertension) ICD Codes: I10 - Essential (primary) hypertension SNOMED: 55411337 Assessment/Plan IV hydration IV antibiotics gtube site care check electroytes resume HD if family agrees dvt prophylaxis FLAKITA YBARRA Apr 26, 2016 15:31
--- NOTE | 2016-04-26 15:45 | Consultation ---
History of Present Illness General Date patient seen: Apr 26, 2016 Chief Complaint: Abnormal Labs Referring physician: Dr. Lyn Reason for Consultation: dyspnea Present Illness HPI 80 year old female with hx of ESRF, dementia, Gtube, anxiety, alf resident LOTUS because of increasing stupor and abnormal labs. Patient can't give any history and all information is obtained from the chart. Pt was diagnosed to have septis and admitted to telemetry. Allergies: Coded Allergies: No Known Allergies (Unverified , 01/06/14) Medication History Scheduled Amlodipine Besylate (Norvasc), 10 MG ORAL DAILY, (Reported) Amlodipine Besylate (Norvasc), 10 MG ORAL DAILY, (Reported) Atorvastatin Calcium* (Atorvastatin Calcium*), 40 MG ORAL BEDTIME, (Reported) Ceftriaxone Na/Dextrose,Iso (Ceftriaxone 2 Gm Piggyback), 2 GM IV DAILY, ( Reported) Ceftriaxone Sod (Ceftriaxone), 2 GM IM DAILY, (Reported) Ceftriaxone Sodium (Ceftriaxone), 2 GM IV DAILY, (Reported) Ceftriaxone Sodium (Ceftriaxone), 2 GM IVPB DAILY, (Reported) Clonidine HCl (Clonidine HCl), 0.1 MG GT Q6HR Cran/Vitc/Mannose/Inulin/Brom (Uti-Stat Liquid), 3,875 MG PO BID, (Reported) Cranberry Extract (Cranberry), 450 MG PO DAILY, (Reported) Dextromethorphan Hbr/Quinidine (Nuedexta 20-10 Mg Capsule), 1 EACH PO BID, ( Reported) Dextrose 50 % In Water (Dextrose 50%-Water Vial), 50 ML IV NEEDED, (Reported) Furosemide (Furosemide), 40 MG IJ DAILY, (Reported) Heparin Sod (Porcine) (Heparin Sodium*), 5,000 UNITS SUBQ EVERY 12 HOURS, ( Reported) Insulin Aspart* (Novolog*), 0 SUBQ AC, (Reported) Insulin Detemir (Levemir Flexpen), 20 UNITS SUBQ QHS, (Reported) Insulin Detemir (Levemir Flexpen), 10 SUBQ EVERY 12 HOURS, (Reported) Insulin Lispro (Humalog), 0 SUBQ BEFORE BREAKFAST, (Reported) Ipratropium/Albuterol Sulfate (DuoNeb 0.5-3(2.5)mg/3ml), 3 ML HHN Q4HR, ( Reported) Lorazepam* (Ativan*), 0.5 MG ORAL Q6HR, (Reported) Magnesium Oxide (Mag-Oxide), 400 MG PO BID, (Reported) Metoprolol Tartrate* (Metoprolol Tartrate*), 25 MG ORAL EVERY 12 HOURS, ( Reported) Olanzapine* (Zyprexa*), 7.5 MG ORAL HS, (Reported) Omeprazole Magnesium (Prilosec Otc), 20 MG ORAL DAILY, (Reported) Pantoprazole* (Pantoprazole*), 40 MG ORAL EVERY 12 HOURS, (Reported) Saline (Sodium Chloride), 10 ML IVF Q8HR, (Reported) Temazepam* (Restoril*), 15 MG ORAL BEDTIME, (Reported) Ziprasidone Hcl* (Geodon*), 20 MG ORAL TWICE A DAY, (Reported) Scheduled PRN Acetaminophen (Tylenol), 650 MG ORAL Q4HR PRN for Prn Pain/Headache/Temp > 101, (Reported) Acetaminophen* (Tylenol Extra Strength*), 500 MG ORAL Q6H PRN for Mild Pain/ Temp > 100.5, (Reported) Clonidine Hcl (Clonidine Hcl), 0.1 MG PO Q4HR PRN for For High Blood Pressure, ( Reported) Ondansetron* (Zofran*), 4 MG IV Q6H PRN for Nausea & Vomiting, (Reported) Polyethylene Glycol 3350* (Miralax*), 17 GM ORAL DAILY PRN for Constipation, ( Reported) Miscellaneous Medications Insulin Detemir (Levemir Flexpen), 0 SUBQ, (Reported) Insulin Detemir (Levemir Flexpen), 10 SUBQ, (Reported) Patient History Healthcare decision maker Azul Slade Resuscitation status Full Code Advanced Directive on File Yes Past Medical/Surgical History Past Medical/Surgical History: (1) HTN (hypertension) (2) DM (diabetes mellitus) (3) Open wnd foot-complicated (4) [facility] Social History Social History: (1) [facility] Review of Systems All Other Systems: negative except mentioned in HPI Physical Exam General Appearance: WD/WN Lines, tubes and drains: peripheral HEENT: normocephalic, atraumatic Neck: non-tender, supple Respiratory/Chest: chest wall non-tender, lungs clear Cardiovascular/Chest: normal peripheral pulses, normal rate Abdomen: normal bowel sounds, non tender Genitourinary/Rectal: normal genital exam Extremities: other - extensive wounds in both feet. Last 24 Hour Vital Signs Date Time Temp Pulse Resp B/P Pulse Ox O2 Delivery O2 Flow Rate FiO2 04/26/16 12:21 144/58 04/26/16 11:44 96.8 68 18 154/58 97 Room Air 04/26/16 09:45 76 16 Room Air 21 04/26/16 09:03 75 134/60 04/26/16 08:11 97.7 75 18 134/60 98 Room Air 04/26/16 06:23 159/72 04/26/16 04:00 78 04/26/16 04:00 97.6 76 20 138/59 95 Room Air 04/26/16 01:14 172/74 04/26/16 01:00 87 04/26/16 00:40 97.7 87 16 172/74 97 Room Air 04/26/16 00:30 98.4 90 20 161/78 95 Room Air 2.0 04/26/16 00:10 98.4 90 20 161/78 95 Room Air 2.0 04/25/16 23:35 98.4 93 19 159/62 99 Room Air 04/25/16 21:48 99.0 93 19 166/63 96 Room Air 04/25/16 17:28 99.5 98 20 146/74 99 Nasal Cannula 2.0 Intake and Output 04/25/16 04/26/16 18:59 06:59 Intake Total 1065 ml Output Total 340 ml Balance 725 ml Intake Free Water 100 ml IV Total 905 ml Other 60 ml Output Urine Total 340 ml Laboratory Tests Test 04/25/16 18:50 04/25/16 19:40 04/26/16 02:30 04/26/16 09:30 White Blood Count 22.9 K/UL (4.8-10.8) *H 18.2 K/UL (4.8-10.8) H Red Blood Count 4.85 M/UL (4.20-5.40) 4.18 M/UL (4.20-5.40) L Hemoglobin 14.8 G/DL (12.0-16.0) 12.5 G/DL (12.0-16.0) Hematocrit 47.0 % (37.0-47.0) 40.1 % (37.0-47.0) Mean Corpuscular Volume 97 FL (80-99) 96 FL (80-99) Mean Corpuscular Hemoglobin 30.5 PG (27.0-31.0) 29.9 PG (27.0-31.0) Mean Corpuscular Hemoglobin Concent 31.4 G/DL (32.0-36.0) L 31.2 G/DL (32.0-36.0) L Red Cell Distribution Width 15.1 % (11.6-14.8) H 15.1 % (11.6-14.8) H Platelet Count 526 K/UL (150-450) H 420 K/UL (150-450) Mean Platelet Volume 6.7 FL (6.5-10.1) 7.3 FL (6.5-10.1) Neutrophils (%) (Auto) % (45.0-75.0) % (45.0-75.0) Lymphocytes (%) (Auto) % (20.0-45.0) % (20.0-45.0) Monocytes (%) (Auto) % (1.0-10.0) % (1.0-10.0) Eosinophils (%) (Auto) % (0.0-3.0) % (0.0-3.0) Basophils (%) (Auto) % (0.0-2.0) % (0.0-2.0) Differential Total Cells Counted 100 100 Neutrophils % (Manual) 70 % (45-75) 80 % (45-75) H Lymphocytes % (Manual) 26 % (20-45) 10 % (20-45) L Monocytes % (Manual) 4 % (1-10) 8 % (1-10) Eosinophils % (Manual) 0 % (0-3) 1 % (0-3) Basophils % (Manual) 0 % (0-2) 0 % (0-2) Band Neutrophils 0 % (0-8) 1 % (0-8) Platelet Estimate Increased H Adequate Platelet Morphology Normal Normal Polychromasia 1+ Anisocytosis 1+ 1+ Macrocytosis 1+ Prothrombin Time 10.6 SEC (9.30-11.50) Prothromb Time International Ratio 1.0 (0.9-1.1) Activated Partial Thromboplast Time 25 SEC (23-33) Sodium Level 163 mEQ/L (135-145) *H 157 mEQ/L (135-145) H Potassium Level 4.3 mEQ/L (3.4-4.9) 3.9 mEQ/L (3.4-4.9) Chloride Level 113 mEQ/L (98-107) H 112 mEQ/L (98-107) H Carbon Dioxide Level 30 mEQ/L (20-30) 27 mEQ/L (20-30) Anion Gap 20 (5-15) H 18 (5-15) H Blood Urea Nitrogen 132 mg/dL (7-23) H 122 mg/dL (7-23) H Creatinine 3.8 mg/dL (0.5-0.9) H 3.4 mg/dL (0.5-0.9) H Estimat Glomerular Filtration Rate mL/min (>60) mL/min (>60) Glucose Level 297 mg/dL (74-106) H 382 mg/dL (74-106) H Lactic Acid Level 1.90 mmol/L (0.66-2.22) Calcium Level 10.4 mg/dL (8.6-10.2) H 9.4 mg/dL (8.6-10.2) Total Bilirubin 0.2 mg/dL (0.0-1.2) 0.4 mg/dL (0.0-1.2) Aspartate Amino Transf (AST/SGOT) 56 U/L (5-40) H 35 U/L (5-40) Alanine Aminotransferase (ALT/SGPT) 82 U/L (3-33) H 67 U/L (3-33) H Alkaline Phosphatase 100 U/L (35-104) 79 U/L (35-104) Total Creatine Kinase 69 U/L (26-140) Troponin I < 0.30 ng/mL (<=0.30) Pro-B-Type Natriuretic Peptide 8341 pg/mL (0-450) H Total Protein 8.4 g/dL (6.6-8.7) 6.9 g/dL (6.6-8.7) Albumin 3.9 g/dL (3.5-5.2) 3.3 g/dL (3.5-5.2) L Globulin 4.5 g/dL 3.6 g/dL Albumin/Globulin Ratio 0.8 (1.0-2.7) L 0.9 (1.0-2.7) L Urine Color Yellow Yellow Urine Appearance Slightly cloudy Cloudy Urine pH 5 (4.5-8.0) 5 (4.5-8.0) Urine Specific [place] 1.015 (1.005-1.035) 1.015 (1.005-1.035) Urine Protein 4+ (NEGATIVE) H 3+ (NEGATIVE) H Urine Glucose (UA) 2+ (NEGATIVE) H 1+ (NEGATIVE) H Urine Ketones Negative (NEGATIVE) Negative (NEGATIVE) Urine Occult Blood 1+ (NEGATIVE) H 4+ (NEGATIVE) H Urine Nitrite Negative (NEGATIVE) Negative (NEGATIVE) Urine Bilirubin Negative (NEGATIVE) Negative (NEGATIVE) Urine Urobilinogen Normal MG/DL (0.0-1.0) Normal MG/DL (0.0-1.0) Urine Leukocyte Esterase 2+ (NEGATIVE) H 3+ (NEGATIVE) H Urine RBC 2-4 /HPF (0 - 2) H 10-15 /HPF (0 - 2) H Urine WBC 40-60 /HPF (0 - 2) H Tntc /HPF (0 - 2) H Urine Squamous Epithelial Cells Few /LPF (NONE/OCC) Few /LPF (NONE/OCC) Urine Bacteria Many /HPF (NONE) H Many /HPF (NONE) H Urine Yeast Many /HPF (NONE) H Many /HPF (NONE) H Urine Eosinophils Few Urine Osmolality Pending Urine Random Sodium 35 mmol/L Urine Random Chloride 17 mmol/L Urine Potassium Timed 37 mmol/L Hypochromasia 1+ Vancomycin Level Trough 20.6 ug/mL (5.0-12.0) H Height (Feet): 5 Height (Inches): 3.00 Weight (Pounds): 133 Medications Current Medications Medications (Trade) Dose Ordered Sig/Issa Route PRN Reason Start Time Stop Time Status Last Admin Dose Admin Acetaminophen (Tylenol) 650 mg Q4H PRN ORAL fever 04/25/16 22:45 05/25/16 22:44 Albuterol/ Ipratropium (DuoNeb 0.5-3(2.5)mg/3ml) 3 ml EVERY 4 HOURS PRN HHN Shortness of Breath 04/25/16 22:45 04/30/16 22:44 Amlodipine Besylate (Norvasc) 10 mg DAILY ORAL 04/26/16 09:00 05/26/16 08:59 04/26/16 09:03 Cefepime HCl 1 gm/ Dextrose 55 ml @ 110 mls/hr Q24H IVPB 04/26/16 03:00 05/03/16 02:59 04/26/16 02:44 Clonidine HCl (Catapres) 0.1 mg Q6HR GT 04/26/16 00:00 05/26/16 00:00 04/26/16 12:21 Dextromethorphan/ Quinidine (Nuedexta Capsule) 1 cap BID ORAL 04/26/16 09:00 05/26/16 08:59 UNV Dextrose STAT PRN IV Hypoglycemia 04/25/16 22:45 05/25/16 22:44 Dextrose/Sodium Chloride (D5 0.2%NS 1000ml) 1,000 ml @ 75 mls/hr [id number] IV 04/26/16 11:00 05/26/16 10:59 Heparin Sodium (Porcine) (Heparin 5000 units/ml) 5,000 units EVERY 12 HOURS SUBQ 04/26/16 09:00 05/26/16 08:59 04/26/16 09:06 Insulin Aspart (NovoLOG) BEFORE MEALS AND HS SUBQ 04/26/16 06:30 05/26/16 06:29 04/26/16 12:11 Linezolid 300 ml @ 300 mls/hr Q12HR IVPB 04/26/16 12:00 05/03/16 11:59 04/26/16 12:21 Morphine Sulfate (Morphine Sulfate) 2 mg EVERY 4 HOURS PRN IVP Moderate Pain (Pain Scale 4-6) 04/25/16 22:45 05/02/16 22:44 Nitroglycerin (Ntg) 0.4 mg Every 5 Minutes PRN SL Prn Chest Pain 04/25/16 22:45 05/25/16 22:44 Olanzapine (ZyPREXA) 7.5 mg DAILY ORAL 04/26/16 09:00 05/26/16 08:59 04/26/16 09:03 Ondansetron HCl (Zofran) 4 mg Q6H PRN IVP Nausea & Vomiting 04/25/16 22:45 05/25/16 22:44 Pantoprazole (Protonix) 40 mg EVERY 12 HOURS ORAL 04/26/16 09:00 05/26/16 08:59 04/26/16 09:03 Polyethylene Glycol (Miralax) 17 gm DAILYPRN PRN ORAL Constipation 04/25/16 22:45 05/25/16 22:44 Temazepam (Restoril) 15 mg HSPRN PRN ORAL Insomnia 04/25/16 22:45 05/02/16 22:44 Ziprasidone (Geodon) 20 mg TWICE A DAY ORAL 04/26/16 09:00 05/26/16 08:59 04/26/16 09:03 Assessment/Plan Problem List: (1) Sepsis ICD Codes: A41.9 - Sepsis, unspecified organism SNOMED: 10411007 (2) UTI (urinary tract infection) ICD Codes: N39.0 - UTI (urinary tract infection) SNOMED: 86542054 (3) Acute hypernatremia ICD Codes: E87.0 - Hyperosmolality and hypernatremia SNOMED: 3038553 (4) Renal insufficiency ICD Codes: N28.9 - Disorder of kidney and ureter, unspecified SNOMED: 812959089 (5) [facility] resident ICD Codes: Z59.3 - Problems related to living in residential institution SNOMED: 211289759 (6) Open wnd foot-complicated ICD Codes: S91.309A - Unspecified open wound, unspecified foot, initial encounter SNOMED: 493236840 (7) Gangrene of foot ICD Codes: I96 - Gangrene, not elsewhere classified SNOMED: 213335520 (8) HTN (hypertension) ICD Codes: I10 - Essential (primary) hypertension SNOMED: 99573978 Assessment/Plan IV hydration IV antibiotics gtube site care check electroytes resume HD if family agrees dvt prophylaxis FLAKITA YBARRA Apr 26, 2016 15:44
--- NOTE | 2016-04-26 18:26 | Consultation ---
Consult Note Consult Note Patient is unable to communicate effectively. 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 Will follow up results - [place] all wounds with betadine and cover the foot and legs with kerlix. Will monitor area of gangrene until it is demarcated - Repeat left ankle xray. History of luciano fracture. Below knee cast is currently present. Will need to remove and assess for any possible wounds - Right ankle MRI is negative for osteo - Continue current IV antibiotics per infectious disease specialist - Offload heels Wang Mukherjee DPM Apr 26, 2016 18:26
[2016-04-26] MEDS ORDERED: Cathflo Alteplase 2mg Inj INJ ONE (19:30)
--- NOTE | 2016-04-26 21:58 | History and Physical Report ---
DATE OF ADMISSION: 04/25/2016 TIME SEEN: At 3 p.m. ATTENDING PHYSICIAN: Tavon Lyn D.O. CONSULTANTS: 1. Virginia Matamoros M.D. 2. Leigh Ann Khalil M.D. 3. Sammi Lopez M.D. CHIEF COMPLAINT: Sepsis, , hypertension, and diabetes. HISTORY OF PRESENT ILLNESS: This is a 80-year-old female from [facility], presents to [facility] with weakness and nausea, was found to have sepsis and chronic renal failure, admitted to telemetry for further care. Currently, calm, lethargic, sleeping in bed, and not talking. REVIEW OF SYSTEMS: Not available. PAST MEDICAL HISTORY: Include chronic renal failure, hypertension, diabetes, and DVT. PAST SURGICAL HISTORY: Shunt. ALLERGIES: Denies. MEDICATIONS: Include , amlodipine, Zyprexa, Protonix, heparin, NovoLog, and Ceftin. SOCIAL HISTORY: No smoking. No alcohol. No intravenous drug use. FAMILY HISTORY: Noncontributory. PHYSICAL EXAMINATION: GENERAL: Calm in bed, sleeping, not talking. VITAL SIGNS: Temperature is 96, pulse 68, respirations 18, and blood pressure 144/58. CARDIOVASCULAR: No murmur. LUNGS: Poor air exchange. ABDOMEN: Bowel sounds are positive. Nontender and nondistended. EXTREMITIES: No cyanosis or clubbing. NEUROLOGIC: The patient is moving all extremities. Does not follow commands. LABORATORY DATA: Labs at this time show white count 18, hemoglobin and hematocrit 12/40, and platelets of 420,000. BMP shows sodium 157, chloride 112, BUN and creatinine 122/3.4, and glucose 382. INR is 1.0. Urinalysis showed 3+ urine. ASSESSMENT: 1. Urinary tract infection. 2. Sepsis. 3. Chronic renal failure. 4. Hypertension. 5. Diabetes. 6. Deep venous thrombosis. PLAN: Continue premedications. Antibiotics per Infectious Disease. Blood pressure and blood sugar control. Dialysis. OT/PT and dietary evaluation. CBC and BMP in the morning. Dr. Matamoros, Dr. Lopez, Dr. Khalil, and Dr. Rodrgiuez to consult. We will continue to follow this patient. Tavon Lyn D.O. DR: FRANKLIN JOB#: [id number] CC:
--- NOTE | 2016-04-26 22:57 | Consultation ---
DATE OF CONSULTATION: INFECTIOUS DISEASE CONSULTATION REQUESTING PHYSICIAN: Tavon Lyn M.D. REASON FOR CONSULTATION: Sepsis, right foot wound infection, and urinary tract infection, recommendation for antibiotics therapy. HISTORY OF PRESENT ILLNESS: The patient is a 80-year-old female with past medical history of dementia, chronic obstructive pulmonary disease, and cardiac disease, was sent to [facility] for abnormal laboratories. The patient had history of CVA in the past, cannot communicate and provide any history. History was mainly obtained from the medical record and nursing staff. The patient was febrile in the emergency room with temperature of 99.5, she is saturating 99% on two liters nasal cannula. The patient was found to have multiple wounds on her right foot and ankle and the sacrum concerning for infection and gangrenous change on the right foot. Her white count also was elevated at 22.9. The patient was started on antibiotic therapy concerning for sepsis and urine infection and I was consulted by the primary provider for antibiotics recommendation and further management. REVIEW OF SYSTEMS: Unable to obtain, the patient is demented cannot provide any history. PAST MEDICAL HISTORY: Significant for coronary artery disease, hyperlipidemia, anemia, osteoarthritis, chronic obstructive pulmonary disease, hypertension, diabetes, gastroesophageal reflux disease, dementia, encephalopathy, dizziness, and syncope. PAST SURGICAL HISTORY: G-tube placement. ALLERGIES: She has no known drug allergy. SOCIAL HISTORY: She lives at senior care facility. No recent drugs, tobacco, or alcohol. MEDICATIONS: The patient was started on cefepime and vancomycin. For the rest of her medications, please refer to the MAR. PHYSICAL EXAMINATION: VITAL SIGNS: Temperature 96.8, pulse 68, respirations 18, blood pressure 154/58, and pulse oximetry 97% on room air. GENERAL: This is an elderly female, demented, lying in bed, unresponsive to verbal commands, not in acute distress, but responds to painful stimuli. HEENT: Normocephalic and atraumatic. Pupils are reactive to light. Unable to assess oral mucosa. The patient does not follow commands. NECK: Supple. No lymphadenopathy. CARDIOVASCULAR: Regular rate and rhythm. No murmur or gallop. LUNGS: Clear bilaterally. Diminished breathing sounds at the bases. ABDOMEN: Soft, nontender, and nondistended. Positive bowel sounds. No hepatosplenomegaly or ascites. EXTREMITIES: She had right foot gangrenous changes with multiple wounds and scars with atrophy. SKIN: She had sacral decubitus and multiple right foot and ankle wounds with eschars. LABORATORY AND DIAGNOSTIC DATA: Labs showed white count of 22.9, hemoglobin of 14.8, hematocrit of 47.0, and platelet count of 526,000. BUN of 132 and creatinine of 3.8. Lactic acid of 1.9. AST of 56, ALT of 82. Urine analysis showed negative nitrites, +2 leukocyte esterase, WBC 40 to 60, and many yeast. Imaging: Chest x-ray showed no acute disease. Right ankle MRI showed no evidence of osteomyelitis or abscess. ASSESSMENT AND PLAN: 1. Sepsis due to urinary tract infection and diabetic foot infection. The patient will be continued on cefepime. We will stop vancomycin to avoid nephrotoxicity and start Zyvox instead and send blood culture and urine culture. 2. Gangrene of the right foot. Recommend Podiatry evaluation. We will send sedimentation rate, C-reactive protein. MRI of the right foot did not show any evidence of abscess or osteomyelitis. 3. Open wound of the right foot complicated with eschars and gangrene. The patient will benefit from Podiatry evaluation and local wound care. MRI did not show any abscess or osteomyelitis underlying. 4. Diabetes, recommend tight glycemic control to keep blood glucose between 80 to 120. 5. Urinary tract infection, the patient on cefepime. Await culture. 6. Acute renal failure due to dehydration. Continue intravenous fluid for hydration. Avoid nephrotoxic medicines. We will discontinue vancomycin. 7. Acute hypernatremia, suspect dehydration related. Continue intravenous fluids with close monitor of sodium level. Consult Renal. Monitor electrolytes closely. Thank you for the consult. Virginia Matamoros M.D. DR: RASHAD JOB#: [id number] CC:
[2016-04-26] MEDS: D5 1/4NS 1000ml 1,000 ML IV SCH (23:14)
[2016-04-27] VITALS (7 sets, daily range): BP systolic 114–137; BP diastolic 49–69
[2016-04-27] MEDS: D5 1/4NS 1000ml 1,000 ML IV SCH (00:20)
[2016-04-27] MEDS: Cefepime 1gm/D5W 55ml IVPB SCH ×2 (03:10)
[2016-04-27] MEDS: NovoLOG Insulin Flexpen SUBQ SCH ×4 (06:57→21:51)
[2016-04-27 07:42] LABS: BASOPHILS % (AUTO) 0.7 % (0.0-2.0); EOSINOPHILS % (AUTO) 1.4 % (0.0-3.0); LYMPHOCYTES % (AUTO) 25.6 % (20.0-45.0); MEAN CORPUSCULAR HEMOGLOBIN 30.3 PG (27.0-31.0); MEAN CORPUSCULAR HGB CONC 31.9 G/DL (32.0-36.0); MEAN CORPUSCULAR VOLUME 95 FL (80-99); MEAN PLATELET VOLUME 7.9 FL (6.5-10.1); NEUTROPHILS % (AUTO) 67.4 % (45.0-75.0); PLATELET COUNT 296 K/UL (150-450); RED BLOOD COUNT 3.71 M/UL (4.20-5.40); RED CELL DISTRIBUTION WIDTH 14.4 % (11.6-14.8)
[2016-04-27 08:07] LABS: ANION GAP 20 (5-15); CALCIUM 8.9 mg/dL (8.6-10.2); CARBON DIOXIDE 24 mEQ/L (20-30); CHLORIDE 109 mEQ/L (98-107); CREATININE 3.3 mg/dL (0.5-0.9); HEMOLYSIS 1; POTASSIUM 4.4 mEQ/L (3.4-4.9); SODIUM 153 mEQ/L (135-145)
[2016-04-27] MEDS ORDERED: Pantoprazole 40mg pkt GT SCH (09:00)
[2016-04-27] MEDS: OLANZapine 2.5mg tab ORAL SCH (09:22)
[2016-04-27] MEDS: Heparin 5000 units/ml inj SUBQ SCH ×2 (09:38→21:52)
--- NOTE | 2016-04-27 11:27 | Nephrology Progress Note ---
Assessment/Plan Assessment 1. Hypernatremia. 2. End-stage renal disease based on the patient evaluation. 3. Hypercalcemia. 4. Severe dehydration. 5. Elevated white blood cell count and sepsis. Plan plan to repeat hemodialysis today free water via g tube continue epogen iv antibiotic check phos check pre albumin Subjective Constitutional: Reports: no symptoms HEENT: Reports: no symptoms Genitourinary: Reports: no symptoms Neurologic/Psychiatric: Reports: no symptoms Subjective had dialysis yesterday but unfortunately cath didn't work well Objective Objective Last 24 Hour Vital Signs Date Time Temp Pulse Resp B/P Pulse Ox O2 Delivery O2 Flow Rate FiO2 04/27/16 10:05 75 20 Room Air 21 04/27/16 09:24 74 123/60 04/27/16 08:00 75 04/27/16 08:00 96.6 74 18 123/60 97 Room Air 04/27/16 06:00 103/50 04/27/16 04:05 97.0 70 20 129/52 100 Room Air 04/27/16 04:00 72 04/27/16 00:25 97.0 74 20 133/54 97 Room Air 04/27/16 00:21 133/54 04/27/16 00:00 73 04/26/16 20:00 97.8 75 20 122/50 95 Room Air 04/26/16 20:00 82 04/26/16 19:30 Room Air 04/26/16 19:11 74 16 Room Air 21 04/26/16 16:20 Room Air 04/26/16 16:00 72 04/26/16 16:00 97.4 72 18 129/55 97 Room Air 04/26/16 12:21 144/58 04/26/16 11:44 96.8 68 18 154/58 97 Room Air Intake and Output 04/26/16 04/27/16 19:00 07:00 Intake Total 300 ml 1035 ml Output Total 400 ml 1712 ml Balance -100 ml -677 ml IV Total 300 ml 935 ml Other 100 ml Output Urine Total 400 ml 700 ml Hemodialysis UF 1012 ml Laboratory Tests 04/27/16 00:00: Urine Eosinophils None seen, Urine Random Creatinine [Pending], Urine Random Microalbumin [Pending], Urine Random Total Protein 108, Urine Random Sodium 36, Urine Creatinine 52.8, Urine Microalbumin/Creatinine Ratio [Pending] 1/20/17 06:50: White Blood Count 17.0H, Red Blood Count 3.71L, Hemoglobin 11.3L, Hematocrit 35.3L, Mean Corpuscular Volume 95, Mean Corpuscular Hemoglobin 30.3, Mean Corpuscular Hemoglobin Concent 31.9L, Red Cell Distribution Width 14.4, Platelet Count 296, Mean Platelet Volume 7.9, Neutrophils (%) (Auto) 67.4, Lymphocytes (%) (Auto) 25.6, Monocytes (%) (Auto) 5.0, Eosinophils (%) (Auto) 1.4, Basophils (%) (Auto) 0.7, Sodium Level 153H, Potassium Level 4.4, Chloride Level 109H, Carbon Dioxide Level 24, Anion Gap 20H, Blood Urea Nitrogen 116H, Creatinine 3.3H, Estimat Glomerular Filtration Rate , Glucose Level 393H, Plasma /Serum Osmolality [Pending], Calcium Level 8.9 Height (Feet): 5 Height (Inches): 3.00 Weight (Pounds): 135 Objective HEENT/NECK: Head and neck: No JVP. No LAD. No thyromegaly. Extraocular movement intact. Pupils are reactive to light and accommodation. LUNGS: Decreased breathing sound on the both sides. CARDIAC: Regular rate and rhythm. S1 and S2. No murmur. No rub. ABDOMEN: Soft, nontender, and nondistended. EXTREMITIES: Left lower extremity is on cast. DAINA AVELAR Apr 27, 2016 11:27
--- NOTE | 2016-04-27 11:53 | Diagnostic Imaging Report ---
Indications: Left ankle pain, fracture Technique: 3 views left ankle Findings: Comparison: 01/30/16 Fiberglass cast degrades fine bony and soft tissue detail. No definite fracture currently identified. Bony alignments appear intact. No significant surrounding soft tissue swelling. IMPRESSION: No current evidence of acute abnormality, limited as described
--- NOTE | 2016-04-27 13:22 | Podiatric Progress Note ---
Assessment/Plan Patient Concha Segovia is a 80 year old female who was admitted on Apr 25, 2016 at 21:23 with right lower extremity cellulitis Problems: (1) Sepsis (2) Leukocytosis (3) Wound cellulitis (4) Gangrene of foot (5) Open wnd foot-complicated (6) DVT (deep venous thrombosis) (7) ESRD (end stage renal disease) Assessment/Plan - Right lower extremity cellulitis improving. Continue to monitor area regularly and observe for demarcation of the gangrene. Arterial ultrasound shows occlusion on the right lower extremity. Left lower extremity study was limited due to below knee cast. However, cast has been removed and vascular ultrasound is being repeated. Recommend vascular consult - Left ankle fracture is healed. Removed left below knee cast. No wounds were noted beneath - Continue antibiotics per infectious disease specialist. WBC is improving and patient remains afebrile - Offload heels Subjective Reason for consult Right lower extremity wounds and cellulitis Allergies: Coded Allergies: No Known Allergies (Unverified , 01/06/14) Subjective Patient is unable to communicate effectively Objective Exam Last 24 Hour Vital Signs Date Time Temp Pulse Resp B/P Pulse Ox O2 Delivery O2 Flow Rate FiO2 04/27/16 12:51 131/69 04/27/16 11:41 96.1 73 18 131/69 96 Room Air 04/27/16 10:05 75 20 Room Air 21 04/27/16 09:24 74 123/60 04/27/16 08:00 75 04/27/16 08:00 96.6 74 18 123/60 97 Room Air 04/27/16 06:00 103/50 04/27/16 04:05 97.0 70 20 129/52 100 Room Air 04/27/16 04:00 72 04/27/16 00:25 97.0 74 20 133/54 97 Room Air 04/27/16 00:21 133/54 04/27/16 00:00 73 04/26/16 20:00 97.8 75 20 122/50 95 Room Air 04/26/16 20:00 82 04/26/16 19:30 Room Air 04/26/16 19:11 74 16 Room Air 21 04/26/16 16:20 Room Air 04/26/16 16:00 72 04/26/16 16:00 97.4 72 18 129/55 97 Room Air Laboratory Tests Test 04/27/16 00:00 04/27/16 06:50 Urine Eosinophils None seen Urine Random Creatinine Pending Urine Random Microalbumin Pending Urine Random Total Protein 108 mg/dL Urine Random Sodium 36 mmol/L Urine Creatinine 52.8 mg/dL Urine Microalbumin/Creatinine Ratio Pending White Blood Count 17.0 K/UL (4.8-10.8) H Red Blood Count 3.71 M/UL (4.20-5.40) L Hemoglobin 11.3 G/DL (12.0-16.0) L Hematocrit 35.3 % (37.0-47.0) L Mean Corpuscular Volume 95 FL (80-99) Mean Corpuscular Hemoglobin 30.3 PG (27.0-31.0) Mean Corpuscular Hemoglobin Concent 31.9 G/DL (32.0-36.0) L Red Cell Distribution Width 14.4 % (11.6-14.8) Platelet Count 296 K/UL (150-450) Mean Platelet Volume 7.9 FL (6.5-10.1) Neutrophils (%) (Auto) 67.4 % (45.0-75.0) Lymphocytes (%) (Auto) 25.6 % (20.0-45.0) Monocytes (%) (Auto) 5.0 % (1.0-10.0) Eosinophils (%) (Auto) 1.4 % (0.0-3.0) Basophils (%) (Auto) 0.7 % (0.0-2.0) Sodium Level 153 mEQ/L (135-145) H Potassium Level 4.4 mEQ/L (3.4-4.9) Chloride Level 109 mEQ/L (98-107) H Carbon Dioxide Level 24 mEQ/L (20-30) Anion Gap 20 (5-15) H Blood Urea Nitrogen 116 mg/dL (7-23) H Creatinine 3.3 mg/dL (0.5-0.9) H Estimat Glomerular Filtration Rate mL/min (>60) Glucose Level 393 mg/dL (74-106) H Plasma/Serum Osmolality Pending Calcium Level 8.9 mg/dL (8.6-10.2) Microbiology Date/Time Source Procedure Growth Status 04/25/16 19:00 Blood Blood Culture - Preliminary NO GROWTH AFTER 24 HOURS Resulted 04/26/16 03:00 Wound Gram Stain - Final Resulted 04/26/16 03:00 Wound Wound Culture - Preliminary NO GROWTH AFTER 24 HOURS Resulted 04/26/16 02:30 Urine,Clean Catch Urine Culture - Preliminary Streptococcus Species Resulted 04/25/16 22:00 Rectum VRE Culture - Final Enterococcus Faecium - Vre Complete Exam Narrative Right lower extremity with multiple superficial wounds: Anterior leg medial and lateral malleolus, medial foot, dorsal foot, medial 1st metatarsal head. Erythema surrounding the right dorsal foot wound is improving Right 5th toe is cold and cyanotic Dermatological Wound Assessment : Exudate Amount: None Wang Mukherjee DPM Apr 27, 2016 13:22
--- NOTE | 2016-04-27 13:58 | Consultation ---
DATE OF CONSULTATION: 04/26/2016 NOTE: POOR AUDIO QUALITY PSYCHOTHERAPY CONSULTATION PROGRESS NOTE: CONSULTING PHYSICIAN: Mer Jones M.D. TREATING ATTENDING PHYSICIAN: Tavon Lyn D.O. SUBJECTIVE : The patient is a 80-year-old female. The patient lives at [facility]. The patient was brought into the hospital for sepsis and chronic renal failure as well as hypertension and diabetes. The patient has a keno terminal operator history of paranoid schizophrenia. She is lethargic. The patient looks very tired and very weak as well as poorly motivated. short of breath. She is also very , confused, and altered in her mental status. PAST MEDICAL HISTORY: Significant for history of ankle fracture, sepsis, hyperlipidemia. ALLERGIES: The patient has no known drug allergies. SUBSTANCE ABUSE HISTORY: There is no indication of alcohol, illicit substance use, or smoking cigarettes. PSYCHIATRIC HISTORY: The patient has a senior living history of paranoid schizophrenia. The patient has had multiple inpatient psychiatric hospitalizations and has been treated with psychotropic medications. SOCIAL HISTORY: The patient is a 80-year-old female. The patient is a resident of [facility]. She is financially sustained through Medicare and [employer]. MENTAL STATUS EXAMINATION: The patient is alert and oriented x1, to person. Her mood is depressed. Affect is blunted. Thought process is disorganized and illogical. The patient has poor insight, judgment, and impulse control. At this time, there is no indication of homicidal or suicidal thoughts of ideation. There is no indication of auditory or visual hallucinations. DIAGNOSES: Confluence I Paranoid schizophrenia, rule out of dementia with psychosis. Confluence II Deferred. Confluence III Per History and Physical. Confluence IV Problems with social environment. Confluence V Global assessment functioning is PLAN: This clinician assessed the patient. Provided the patient with supportive psychotherapy, reality orientation, and coping skills. Encouraging the patient to participate in treatment. Continue with medication management Mer Jones PsyD. DR: NATANAEL JOB#: [id number] CC:
--- NOTE | 2016-04-27 14:25 | General Progress Note ---
Assessment/Plan Problem List: (1) Morbid obesity ICD Codes: E66.01 - Morbid obesity SNOMED: 316889245 (2) UTI (urinary tract infection) ICD Codes: N39.0 - Urinary tract infection, site not specified SNOMED: 57121805 (3) Sepsis ICD Codes: A41.9 - Sepsis, unspecified organism SNOMED: 69400025 (4) Open wnd foot-complicated ICD Codes: S91.309A - Unspecified open wound, unspecified foot, initial encounter SNOMED: 246789674 (5) DM (diabetes mellitus) ICD Codes: E11.9 - DM (diabetes mellitus) SNOMED: 69685753 (6) ESRD (end stage renal disease) ICD Codes: N18.6 - End stage renal disease SNOMED: 59624759 Status: stable, progressing, tolerating diet Assessment/Plan ot pt diet wound care abd vasc pod eval dialysis cbc bmp am Subjective Constitutional: Reports: weakness Allergies: Coded Allergies: No Known Allergies (Unverified , 01/06/14) All Systems: reviewed and negative except above Subjective calm in bed Objective Last 24 Hour Vital Signs Date Time Temp Pulse Resp B/P Pulse Ox O2 Delivery O2 Flow Rate FiO2 04/27/16 12:51 131/69 04/27/16 11:41 96.1 73 18 131/69 96 Room Air 04/27/16 10:05 75 20 Room Air 21 04/27/16 09:24 74 123/60 04/27/16 08:00 75 04/27/16 08:00 96.6 74 18 123/60 97 Room Air 04/27/16 06:00 103/50 04/27/16 04:05 97.0 70 20 129/52 100 Room Air 04/27/16 04:00 72 04/27/16 00:25 97.0 74 20 133/54 97 Room Air 04/27/16 00:21 133/54 04/27/16 00:00 73 04/26/16 20:00 97.8 75 20 122/50 95 Room Air 04/26/16 20:00 82 04/26/16 19:30 Room Air 04/26/16 19:11 74 16 Room Air 21 04/26/16 16:20 Room Air 04/26/16 16:00 72 04/26/16 16:00 97.4 72 18 129/55 97 Room Air Intake and Output 04/26/16 04/27/16 19:00 07:00 Intake Total 300 ml 1035 ml Output Total 400 ml 1712 ml Balance -100 ml -677 ml IV Total 300 ml 935 ml Other 100 ml Output Urine Total 400 ml 700 ml Hemodialysis UF 1012 ml Laboratory Tests 04/27/16 00:00: Urine Eosinophils None seen, Urine Random Creatinine [Pending], Urine Random Microalbumin [Pending], Urine Random Total Protein 108, Urine Random Sodium 36, Urine Creatinine 52.8, Urine Microalbumin/Creatinine Ratio [Pending] 04/27/16 06:50: White Blood Count 17.0H, Red Blood Count 3.71L, Hemoglobin 11.3L, Hematocrit 35.3L, Mean Corpuscular Volume 95, Mean Corpuscular Hemoglobin 30.3, Mean Corpuscular Hemoglobin Concent 31.9L, Red Cell Distribution Width 14.4, Platelet Count 296, Mean Platelet Volume 7.9, Neutrophils (%) (Auto) 67.4, Lymphocytes (%) (Auto) 25.6, Monocytes (%) (Auto) 5.0, Eosinophils (%) (Auto) 1.4, Basophils (%) (Auto) 0.7, Sodium Level 153H, Potassium Level 4.4, Chloride Level 109H, Carbon Dioxide Level 24, Anion Gap 20H, Blood Urea Nitrogen 116H, Creatinine 3.3H, Estimat Glomerular Filtration Rate , Glucose Level 393H, Plasma /Serum Osmolality [Pending], Calcium Level 8.9 Height (Feet): 5 Height (Inches): 3.00 Weight (Pounds): 135 General Appearance: lethargic EENT: normal ENT inspection Neck: normal alignment Cardiovascular: normal peripheral pulses, normal rate, regular rhythm Respiratory/Chest: chest wall non-tender, lungs clear, normal breath sounds Abdomen: normal bowel sounds, non tender, soft Extremities: normal inspection Edema: no edema noted Arm (L), no edema noted Arm (R), no edema noted Leg (L), no edema noted Leg (R), no edema noted Pedal (L), no edema noted Pedal (R), no edema noted Generalized Neurologic: motor weakness Skin: normal pigmentation, warm/dry FRANDY SWIFT Apr 27, 2016 14:25
--- NOTE | 2016-04-27 15:29 | Pulmonology Progress Note ---
Assessment/Plan Problems: (1) Sepsis (2) UTI (urinary tract infection) (3) Acute hypernatremia (4) Renal insufficiency (5) prison resident (6) Open wnd foot-complicated (7) Gangrene of foot (8) HTN (hypertension) Assessment/Plan Plan Broad spectrum Antbx Sepsis work up IV fluid with hypotonic saline Wound care and podiatry to follow up Tight BP and BG control Subjective ROS Limited/Unobtainable: Yes Constitutional: Reports: fever Neurologic: Reports: weakness Skin: Reports: other - open foot wound with copious discharge signs of gangrene , ulcer Musculoskeletal: Reports: pain Allergies: Coded Allergies: No Known Allergies (Unverified , 01/06/14) Objective Last 24 Hour Vital Signs Date Time Temp Pulse Resp B/P Pulse Ox O2 Delivery O2 Flow Rate FiO2 04/27/16 12:51 131/69 04/27/16 11:41 96.1 73 18 131/69 96 Room Air 04/27/16 10:05 75 20 Room Air 21 04/27/16 09:24 74 123/60 04/27/16 08:00 75 04/27/16 08:00 96.6 74 18 123/60 97 Room Air 04/27/16 06:00 103/50 04/27/16 04:05 97.0 70 20 129/52 100 Room Air 04/27/16 04:00 72 04/27/16 00:25 97.0 74 20 133/54 97 Room Air 04/27/16 00:21 133/54 04/27/16 00:00 73 04/26/16 20:00 97.8 75 20 122/50 95 Room Air 04/26/16 20:00 82 04/26/16 19:30 Room Air 04/26/16 19:11 74 16 Room Air 21 04/26/16 16:20 Room Air 04/26/16 16:00 72 04/26/16 16:00 97.4 72 18 129/55 97 Room Air Intake and Output 04/26/16 04/27/16 19:00 07:00 Intake Total 300 ml 1035 ml Output Total 400 ml 1712 ml Balance -100 ml -677 ml IV Total 300 ml 935 ml Other 100 ml Output Urine Total 400 ml 700 ml Hemodialysis UF 1012 ml General Appearance: no acute distress HEENT: normocephalic, atraumatic, PERRL Respiratory/Chest: chest wall non-tender, decreased breath sounds Breasts: no masses Cardiovascular: normal peripheral pulses, normal rate, regular rhythm Abdomen: normal bowel sounds, soft, non tender, no organomegaly Genitourinary: normal external genitalia Skin: rash, lesions, ulcers Neurologic/Psychiatric: agitator operator II-XII grossly normal, no motor/sensory deficits Microbiology Date/Time Source Procedure Growth Status 04/25/16 19:00 Blood Blood Culture - Preliminary NO GROWTH AFTER 24 HOURS Resulted 04/25/16 18:50 Blood Blood Culture - Preliminary NO GROWTH AFTER 24 HOURS Resulted 04/26/16 03:00 Wound Gram Stain - Final Resulted 04/26/16 03:00 Wound Wound Culture - Preliminary NO GROWTH AFTER 24 HOURS Resulted 04/26/16 02:30 Urine,Clean Catch Urine Culture - Preliminary Streptococcus Species Resulted 04/25/16 19:40 Urine,Clean Catch Urine Culture - Preliminary Streptococcus Species Resulted 04/25/16 22:00 Rectum VRE Culture - Final Enterococcus Faecium - Vre Complete Laboratory Tests 04/27/16 00:00: Urine Eosinophils None seen, Urine Random Creatinine [Pending], Urine Random Microalbumin [Pending], Urine Random Total Protein 108, Urine Random Sodium 36, Urine Creatinine 52.8, Urine Microalbumin/Creatinine Ratio [Pending] 04/27/16 06:50: White Blood Count 17.0H, Red Blood Count 3.71L, Hemoglobin 11.3L, Hematocrit 35.3L, Mean Corpuscular Volume 95, Mean Corpuscular Hemoglobin 30.3, Mean Corpuscular Hemoglobin Concent 31.9L, Red Cell Distribution Width 14.4, Platelet Count 296, Mean Platelet Volume 7.9, Neutrophils (%) (Auto) 67.4, Lymphocytes (%) (Auto) 25.6, Monocytes (%) (Auto) 5.0, Eosinophils (%) (Auto) 1.4, Basophils (%) (Auto) 0.7, Sodium Level 153H, Potassium Level 4.4, Chloride Level 109H, Carbon Dioxide Level 24, Anion Gap 20H, Blood Urea Nitrogen 116H, Creatinine 3.3H, Estimat Glomerular Filtration Rate , Glucose Level 393H, Plasma /Serum Osmolality [Pending], Calcium Level 8.9 Current Medications Medications (Trade) Dose Ordered Sig/Issa Route PRN Reason Start Time Stop Time Status Last Admin Dose Admin Acetaminophen (Tylenol) 650 mg Q4H PRN ORAL fever 04/25/16 22:45 05/25/16 22:44 Albuterol/ Ipratropium (DuoNeb 0.5-3(2.5)mg/3ml) 3 ml EVERY 4 HOURS PRN HHN Shortness of Breath 04/25/16 22:45 04/30/16 22:44 Amlodipine Besylate (Norvasc) 10 mg DAILY ORAL 04/26/16 09:00 05/26/16 08:59 04/27/16 09:24 Cefepime HCl 1 gm/ Dextrose 55 ml @ 110 mls/hr Q24H IVPB 04/26/16 03:00 05/03/16 02:59 04/27/16 03:10 Clonidine HCl (Catapres) 0.1 mg Q6HR GT 04/26/16 00:00 05/26/16 00:00 04/27/16 12:51 Dextrose STAT PRN IV Hypoglycemia 04/25/16 22:45 05/25/16 22:44 Heparin Sodium (Porcine) (Heparin 5000 units/ml) 5,000 units EVERY 12 HOURS SUBQ 04/26/16 09:00 05/26/16 08:59 04/27/16 09:38 Insulin Aspart (NovoLOG) BEFORE MEALS AND HS SUBQ 04/26/16 06:30 05/26/16 06:29 04/27/16 12:51 Linezolid (Zyvox) 300 ml @ 300 mls/hr Q12HR IVPB 04/26/16 12:00 05/03/16 11:59 04/27/16 09:22 Morphine Sulfate (Morphine Sulfate) 2 mg EVERY 4 HOURS PRN IVP Moderate Pain (Pain Scale 4-6) 04/25/16 22:45 05/02/16 22:44 Nitroglycerin (Ntg) 0.4 mg Every 5 Minutes PRN SL Prn Chest Pain 04/25/16 22:45 05/25/16 22:44 Olanzapine (ZyPREXA) 7.5 mg DAILY ORAL 04/26/16 09:00 05/26/16 08:59 04/27/16 09:22 Ondansetron HCl (Zofran) 4 mg Q6H PRN IVP Nausea & Vomiting 04/25/16 22:45 05/25/16 22:44 Pantoprazole (Protonix) 40 mg Q12HR GT 04/27/16 09:00 05/27/16 08:59 04/27/16 09:26 Polyethylene Glycol (Miralax) 17 gm DAILYPRN PRN ORAL Constipation 04/25/16 22:45 05/25/16 22:44 Temazepam (Restoril) 15 mg HSPRN PRN ORAL Insomnia 04/25/16 22:45 05/02/16 22:44 FLAKITA YBARRA Apr 27, 2016 15:29
--- NOTE | 2016-04-27 15:46 | Diagnostic Imaging Report ---
Indications: Abdominal mass Technique: Portable supine AP abdomen Findings: Comparison: 07/23/15 Bowel gas pattern is unremarkable. Percutaneous gastrostomy tube, IVC filter, Rivera catheter now in place. Prominent arterial mural calcifications, lumbar vertebral degenerative changes again noted. IMPRESSION: No evidence of acute abdominopelvic disease, unchanged No evidence of abdominopelvic mass. Consider abdominopelvic CT scan for further evaluation as clinically indicated. Interval placement of various appliances as described. Other stable chronic changes as described.
--- NOTE | 2016-04-27 16:07 | Consultation ---
DATE OF CONSULTATION: 04/26/2016 IDENTIFYING DATA: This is a 80-year-old female. CONSULTING SPECIALTY: Podiatry. Covering for Dr Kyle Fletcher. REASON FOR CONSULTATION: Right lower extremity wounds. HISTORY OF PRESENT ILLNESS: The patient is unable to communicate effectively, so the majority of the history was obtained from reviewing the charts. PAST MEDICAL HISTORY: Right lower extremity wound, history of left ankle fracture, bilateral lower extremity DVT with IVC filter, end-stage renal disease, hypertension, chronic obstructive pulmonary disease, and atrial fibrillation. ALLERGIES: None known. ANTIBIOTICS: Linezolid and cefepime. PHYSICAL EXAMINATION: VITAL SIGNS: Temperature 97.4, pulse 72, respiratory rate 18, blood pressure of 129/85, and pulse oximetry is 97% on room air. EXTREMITIES: Right lower extremity with multiple superficial wounds with mild surrounding erythema. No purulence or drainage noted. VASCULAR: Right lower extremity pulses are lightly palpable. MUSCULOSKELETAL: Left lower extremity below knee cast. NEUROLOGICAL: The patient responds to sharp stimulus. LABORATORY DATA: On 04/26/2016, she has white blood count of 18.2, red blood count of 4.18, hemoglobin 12.5, hematocrit 40.1, platelets of 420,000, and neutrophils of 80. Sodium of 137, potassium 3.9, chloride 112, carbon dioxide is 27, BUN is 122, creatinine is 3.4, and glucose is 382. IMAGING STUDIES: On 04/26/2016, right ankle MRI is negative for osteomyelitis. ASSESSMENT: 1. Leukocytosis. 2. Right lower extremity multiple wounds with gangrene of the right fifth toe. 3. History of left ankle fracture. 4. History of bilateral lower extremity deep venous thrombosis and inferior vena cava placement. 5. End-stage renal disease, hypertension, chronic obstructive pulmonary disease, and atrial fibrillation. PLAN: 1. Vascular studies pending. Followup results. 2. Start daily wound care. 3. Repeat left ankle x-rays. 4. History of bimalleolar fracture. Below-knee cast is present. We will need to remove and assess for any possible wound. 5. Right ankle MRI is negative for osteo. Continue current IV antibiotic per infectious disease specialist. 6. Offload heel. Wang Mukherjee DPM DR: RHONDA JOB#: [id number] CC: HOMAR
--- NOTE | 2016-04-27 16:47 | Infectious Diseases Prog Note ---
Assessment/Plan Problems: (1) Sepsis Assessment & Plan: due to UTI, and foot infection, continue zyvox and cefepime empirically, await blood culture (2) Gangrene of foot Assessment & Plan: recommend drop board worker eval, MRI of the foot ruled out osteomyelitis, continue wide spectrum antibiotics and local wound care (3) Open wnd foot-complicated Assessment & Plan: with escars, consult drop board worker, continue local wound care and off loading (4) DM (diabetes mellitus) Assessment & Plan: recommend tight glycemic control to keep blood glucose between 80-120 (5) UTI (urinary tract infection) Assessment & Plan: with streptococcus sp, already on cefepime, await sensitivity (6) Acute hypernatremia Assessment & Plan: due to dehydration, continue IVF, monitor sodium level, and electrolytes (7) Colonization with VRE (vancomycin-resistant enterococcus) Assessment & Plan: keep in contact isolation Subjective ROS Limited/Unobtainable: Yes Allergies: Coded Allergies: No Known Allergies (Unverified , 01/06/14) Subjective she is demented, resting in bed, not in distress Objective Vital Signs Last 24 Hour Vital Signs Date Time Temp Pulse Resp B/P Pulse Ox O2 Delivery O2 Flow Rate FiO2 04/27/16 16:00 97.5 77 16 114/59 96 Room Air 04/27/16 12:51 131/69 04/27/16 12:00 71 04/27/16 11:41 96.1 73 18 131/69 96 Room Air 04/27/16 10:05 75 20 Room Air 21 04/27/16 09:24 74 123/60 04/27/16 08:00 75 04/27/16 08:00 96.6 74 18 123/60 97 Room Air 04/27/16 06:00 103/50 04/27/16 04:05 97.0 70 20 129/52 100 Room Air 04/27/16 04:00 72 04/27/16 00:25 97.0 74 20 133/54 97 Room Air 04/27/16 00:21 133/54 04/27/16 00:00 73 04/26/16 20:00 97.8 75 20 122/50 95 Room Air 04/26/16 20:00 82 04/26/16 19:30 Room Air 04/26/16 19:11 74 16 Room Air 21 Height (Feet): 5 Height (Inches): 3.00 Weight (Pounds): 135 General Appearance: WD/WN, no acute distress HEENT: normocephalic, atraumatic, anicteric, mucous membranes moist Respiratory/Chest: chest wall non-tender, lungs clear, normal breath sounds, no respiratory distress, no accessory muscle use Cardiovascular: normal peripheral pulses, normal rate, regular rhythm, no gallop/murmur, no JVD Abdomen: normal bowel sounds, soft, non tender, no organomegaly, non distended , no scars Extremities: no cyanosis, no clubbing, other - right ankle wound Skin: no rash, no lesions, ulcers Microbiology Date/Time Source Procedure Growth Status 04/25/16 19:00 Blood Blood Culture - Preliminary NO GROWTH AFTER 24 HOURS Resulted 04/25/16 18:50 Blood Blood Culture - Preliminary NO GROWTH AFTER 24 HOURS Resulted 04/26/16 03:00 Wound Gram Stain - Final Resulted 04/26/16 03:00 Wound Wound Culture - Preliminary NO GROWTH AFTER 24 HOURS Resulted 04/26/16 02:30 Urine,Clean Catch Urine Culture - Preliminary Streptococcus Species Resulted 04/25/16 19:40 Urine,Clean Catch Urine Culture - Preliminary Streptococcus Species Resulted 04/25/16 22:00 Rectum VRE Culture - Final Enterococcus Faecium - Vre Complete Laboratory Tests Test 04/27/16 00:00 04/27/16 06:50 Urine Eosinophils None seen Urine Random Creatinine Pending Urine Random Microalbumin Pending Urine Random Total Protein 108 mg/dL Urine Random Sodium 36 mmol/L Urine Creatinine 52.8 mg/dL Urine Microalbumin/Creatinine Ratio Pending White Blood Count 17.0 K/UL (4.8-10.8) H Red Blood Count 3.71 M/UL (4.20-5.40) L Hemoglobin 11.3 G/DL (12.0-16.0) L Hematocrit 35.3 % (37.0-47.0) L Mean Corpuscular Volume 95 FL (80-99) Mean Corpuscular Hemoglobin 30.3 PG (27.0-31.0) Mean Corpuscular Hemoglobin Concent 31.9 G/DL (32.0-36.0) L Red Cell Distribution Width 14.4 % (11.6-14.8) Platelet Count 296 K/UL (150-450) Mean Platelet Volume 7.9 FL (6.5-10.1) Neutrophils (%) (Auto) 67.4 % (45.0-75.0) Lymphocytes (%) (Auto) 25.6 % (20.0-45.0) Monocytes (%) (Auto) 5.0 % (1.0-10.0) Eosinophils (%) (Auto) 1.4 % (0.0-3.0) Basophils (%) (Auto) 0.7 % (0.0-2.0) Sodium Level 153 mEQ/L (135-145) H Potassium Level 4.4 mEQ/L (3.4-4.9) Chloride Level 109 mEQ/L (98-107) H Carbon Dioxide Level 24 mEQ/L (20-30) Anion Gap 20 (5-15) H Blood Urea Nitrogen 116 mg/dL (7-23) H Creatinine 3.3 mg/dL (0.5-0.9) H Estimat Glomerular Filtration Rate mL/min (>60) Glucose Level 393 mg/dL (74-106) H Plasma/Serum Osmolality Pending Calcium Level 8.9 mg/dL (8.6-10.2) Current Medications Medications (Trade) Dose Ordered Sig/Issa Route PRN Reason Start Time Stop Time Status Last Admin Dose Admin Acetaminophen (Tylenol) 650 mg Q4H PRN ORAL fever 04/25/16 22:45 05/25/16 22:44 Albuterol/ Ipratropium (DuoNeb 0.5-3(2.5)mg/3ml) 3 ml EVERY 4 HOURS PRN HHN Shortness of Breath 04/25/16 22:45 04/30/16 22:44 Amlodipine Besylate (Norvasc) 10 mg DAILY ORAL 04/26/16 09:00 05/26/16 08:59 04/27/16 09:24 Cefepime HCl 1 gm/ Dextrose 55 ml @ 110 mls/hr Q24H IVPB 04/26/16 03:00 05/03/16 02:59 04/27/16 03:10 Clonidine HCl (Catapres) 0.1 mg Q6HR GT 04/26/16 00:00 05/26/16 00:00 04/27/16 12:51 Dextrose STAT PRN IV Hypoglycemia 04/25/16 22:45 05/25/16 22:44 Heparin Sodium (Porcine) (Heparin 5000 units/ml) 5,000 units EVERY 12 HOURS SUBQ 04/26/16 09:00 05/26/16 08:59 04/27/16 09:38 Insulin Aspart (NovoLOG) BEFORE MEALS AND HS SUBQ 04/26/16 06:30 05/26/16 06:29 04/27/16 12:51 Linezolid (Zyvox) 300 ml @ 300 mls/hr Q12HR IVPB 04/26/16 12:00 05/03/16 11:59 04/27/16 09:22 Morphine Sulfate (Morphine Sulfate) 2 mg EVERY 4 HOURS PRN IVP Moderate Pain (Pain Scale 4-6) 04/25/16 22:45 05/02/16 22:44 Nitroglycerin (Ntg) 0.4 mg Every 5 Minutes PRN SL Prn Chest Pain 04/25/16 22:45 05/25/16 22:44 Olanzapine (ZyPREXA) 7.5 mg DAILY ORAL 04/26/16 09:00 05/26/16 08:59 04/27/16 09:22 Ondansetron HCl (Zofran) 4 mg Q6H PRN IVP Nausea & Vomiting 04/25/16 22:45 05/25/16 22:44 Pantoprazole (Protonix) 40 mg Q12HR GT 04/27/16 09:00 05/27/16 08:59 04/27/16 09:26 Polyethylene Glycol (Miralax) 17 gm DAILYPRN PRN ORAL Constipation 04/25/16 22:45 05/25/16 22:44 Temazepam (Restoril) 15 mg HSPRN PRN ORAL Insomnia 04/25/16 22:45 05/02/16 22:44 Virginia Matamoros M.D. Apr 27, 2016 16:47
[2016-04-27] MEDS ORDERED: Nitroglycerin Subl 0.4mg tab (Bottle Of 25) SL PRN (19:45)
[2016-04-27] MEDS ORDERED: Morphine Sulfate 2mg/ml Inj IVP PRN (21:00)
[2016-04-27] MEDS ORDERED: DuoNeb 0.5-3(2.5)mg/3ml neb HHN PRN (21:00)
[2016-04-27] MEDS: Pantoprazole Inj IV SCH (21:52)
[2016-04-27] MEDS ORDERED: Miralax 17gm pkt ORAL PRN (22:45)
--- NOTE | 2016-04-27 23:57 | Consultation ---
DATE OF CONSULTATION: 04/27/2016 CARDIOLOGY CONSULTATION REFERRING PHYSICIAN: Tavon Lyn D.O. REASON FOR CONSULTATION: Management of tachycardia as well as congestive heart failure. HISTORY OF PRESENT ILLNESS: The patient is a very unfortunate 80-year-old female, who was brought in for abnormal laboratories. Apparently, she had not been on dialysis for just about a week prior to her arrival to this hospital. Unfortunately, at baseline, she is demented and is not communicating. Her cardiac history is significant for history of congestive heart failure, mainly diastolic dysfunction that may need diastolic as well as history of nmn-CZ-[id number] myocardial infarction and atrial fibrillation with rapid ventricular response. On arrival to this hospital, her 12-lead electrocardiogram showed sinus rhythm. Her blood pressure was 146/74 mmHg. PAST MEDICAL HISTORY: 1. History of respiratory failure requiring positive airway pressure. 2. History of end-stage renal disease on hemodialysis. 3. History of congestive heart failure, mainly diastolic heart failure. 4. History of chronic obstructive pulmonary disease. 5. History of hypertension. 6. History of morbid obesity. 7. History of deep vein thrombosis. 8. History of auy-VW-bvusbescz myocardial infarction. 9. History of atrial fibrillation with rapid ventricular response. 10. History of sepsis with Escherichia coli bacteremia. 11. History of diabetes mellitus. 12. History of sacral decubitus ulcerations stage III. ALLERGIES: No known drug allergies. PAST SURGICAL HISTORY: 1. PEG placement. 2. History of IVC filter placement. MEDICATIONS: Tylenol 650 mg G-tube q.4 hours p.r.n. pain and temperature of 101, amlodipine 10 mg G-tube daily, atorvastatin 40 mg G-tube nightly, ceftriaxone 2 g IV piggyback daily, clonidine 0.1 mg G-tube q.6 hours, liquids G-tube twice daily, cranberry 450 mg G-tube daily, Nuedexta one capsule twice daily, furosemide 40 mg daily, heparin 5000 units subcutaneous q.12 hours, NovoLog insulin, determine insulin, lispro insulin, DuoNeb 3 mL HHN q.4 hours p.r.n. shortness of breath, Ativan 0.5 mg G-tube q.6 hours, magnesium oxide 400 mg G-tube twice daily, metoprolol 25 mg G-tube twice daily, Zyprexa 7.5 mg G-tube nightly, Prilosec 20 mg G-tube daily, Zofran 4 mg intravenous q.6 hours p.r.n. nausea and vomiting, pantoprazole 40 mg G-tube q.12 hours, MiraLAX 17 g G-tube daily p.r.n. constipation, and temazepam 15 mcg G-tube nightly. REVIEW OF SYSTEMS: A 12-system review cannot be obtained as the patient is nonverbal. PHYSICAL EXAMINATION: VITAL SIGNS: On arrival to the hospital, blood pressure was 146/74, respirations 20, pulse of 98, temperature 99.5 degrees Fahrenheit, and O2 saturation 99% on nasal cannula. GENERAL: The patient is a very unfortunate 80-year-old female, in no apparent respiratory distress, not awake. HEENT: Atraumatic and normocephalic. Anicteric. Pupils are equal, round, and reactive to light and accommodation. Conjunctival pallor. NECK: JVP less than 5 cm. No carotid bruit. Carotid upstrokes 2+ bilaterally. CARDIOVASCULAR: Normal S1 and S2. Regular rate and rhythm. No murmurs, gallops, or rubs. Heart sounds are relatively distant. LUNGS: Diminished breath sounds in both bases. ABDOMEN: Soft, nontender, and nondistended. No hepatosplenomegaly. Positive bowel sounds. EXTREMITIES: No evidence of edema, clubbing, or cyanosis. There is right upper extremity AV shunt with thrill. There is also decreased right motor more function. LABORATORY AND DIAGNOSTIC DATA: Imaging: Chest x-ray, presence of right PermCath, normal cardiac silhouette with no evidence of acute cardiopulmonary disease. A 12-lead electrocardiogram, sinus rhythm at a rate of 94 with normal axis. There is right axis deviation and nonspecific ST and T-wave abnormalities. LABORATORY FINDINGS: WBC 22.9, hemoglobin 14.8, hematocrit of 47.0, and platelet count is 526,000. Sodium 163, potassium is 4.3, chloride 113, bicarbonate 30, BUN of 132, creatinine 3.8, and glucose is 298. Troponin I less than 0.3. ProBNP was 8341. INR was 1.0. ASSESSMENT AND PLAN: The patient is a very unfortunate 80-year-old female, who is seen in Cardiology consultation at the request of Dr. Lyn. 1. Acute on chronic diastolic heart failure. The U waved velocity above 200 cm per second. The patient will require aggressive hemodialysis to decrease the preload and we will also work to decrease the afterload medications such as calcium channel maribel and hydralazine. The goal of her blood pressure will be at 130/80 mmHg. We will continue with serial BNP measurements, the elevated BNP is also confirming diastolic heart failure in this patient. 2. History of hypertension. 3. Paroxysmal atrial fibrillation per records as the patient's rhythm is now sinus. She would be considered to be a high risk patient with paroxysmal atrial fibrillation. I do not have any documentation that she had. The patient's rhythm is currently sinus, but she had history of atrial fibrillation with rapid ventricular response back in 02/2016. We will continue the metoprolol. According to the records, she had gastrointestinal bleed and therefore no active therapy and/or ERIS would not be a good choice for her at this time. We are hoping that she remains in sinus rhythm. 4. History of trt-EE-xzajgblma myocardial infarction with troponins as high as 5 in the previous admission. Medical therapy in view of her advanced encephalopathy and stroke in the past. We will continue with the atorvastatin at this time. 5. History of deep vein thrombosis, status post inferior vena cava filter placement. I would like to thank, Dr. Lyn, for allowing me to participate in the care of this patient. Guilherme Rodriguez M.D. DR: GLENNA JOB#: [id number] CC:
[2016-04-28] VITALS: BP 109/50
[2016-04-28] MEDS: Cefepime HCl 1 GM in D5W 55 ML IVPB SCH (02:34)
[2016-04-28 04:00] VITALS: BP 123/48
[2016-04-28] MEDS: NovoLOG Insulin Flexpen SUBQ SCH ×4 (06:08→21:00)
[2016-04-28 08:17] LABS: ANION GAP 17 (5-15); CALCIUM 8.2 mg/dL (8.6-10.2); CARBON DIOXIDE 26 mEQ/L (20-30); CHLORIDE 103 mEQ/L (98-107); CREATININE 3.1 mg/dL (0.5-0.9); HEMOLYSIS 3; POTASSIUM 3.6 mEQ/L (3.4-4.9); SODIUM 146 mEQ/L (135-145)
[2016-04-28 08:33] VITALS: BP 129/46
[2016-04-28 08:38] LABS: BASOPHILS % (AUTO) 0.3 % (0.0-2.0); EOSINOPHILS % (AUTO) 0.9 % (0.0-3.0); LYMPHOCYTES % (AUTO) 24.3 % (20.0-45.0); MEAN CORPUSCULAR HEMOGLOBIN 30.5 PG (27.0-31.0); MEAN CORPUSCULAR HGB CONC 32.1 G/DL (32.0-36.0); MEAN CORPUSCULAR VOLUME 95 FL (80-99); MEAN PLATELET VOLUME 7.8 FL (6.5-10.1); MONOCYTES % (AUTO) 5.5 % (1.0-10.0); PLATELET COUNT 246 K/UL (150-450); RED BLOOD COUNT 2.68 M/UL (4.20-5.40); RED CELL DISTRIBUTION WIDTH 13.5 % (11.6-14.8)
--- NOTE | 2016-04-28 08:46 | General Progress Note ---
Assessment/Plan Problem List: (1) Morbid obesity ICD Codes: E66.01 - Morbid obesity SNOMED: 377388227 (2) UTI (urinary tract infection) ICD Codes: N39.0 - Urinary tract infection, site not specified SNOMED: 17391705 (3) Sepsis ICD Codes: A41.9 - Sepsis, unspecified organism SNOMED: 96515935 (4) Open wnd foot-complicated ICD Codes: S91.309A - Unspecified open wound, unspecified foot, initial encounter SNOMED: 182348862 (5) DM (diabetes mellitus) ICD Codes: E11.9 - DM (diabetes mellitus) SNOMED: 89546467 (6) ESRD (end stage renal disease) ICD Codes: N18.6 - End stage renal disease SNOMED: 15588404 Status: stable, progressing, tolerating diet Assessment/Plan ot pt diet wound care abd vasc pod eval dialysis cbc bmp am promise ltach eval Subjective Constitutional: Reports: weakness Allergies: Coded Allergies: No Known Allergies (Unverified , 01/06/14) All Systems: reviewed and negative except above Subjective calm in bed Objective Last 24 Hour Vital Signs Date Time Temp Pulse Resp B/P Pulse Ox O2 Delivery O2 Flow Rate FiO2 04/28/16 08:33 98.4 84 18 129/46 97 Room Air 04/28/16 07:36 77 18 Room Air 04/28/16 05:48 130/48 04/28/16 04:00 97.9 81 22 123/48 98 Room Air 04/28/16 00:00 97.3 80 22 109/50 99 Room Air 04/28/16 00:00 117/40 04/27/16 20:19 74 16 Room Air 04/27/16 20:00 96.8 78 18 137/60 97 Room Air 04/27/16 17:21 100/60 04/27/16 16:00 97.5 77 16 114/59 96 Room Air 04/27/16 12:51 131/69 04/27/16 12:00 71 04/27/16 11:41 96.1 73 18 131/69 96 Room Air 04/27/16 10:05 75 20 Room Air 21 04/27/16 09:24 74 123/60 Intake and Output 04/27/16 04/28/16 19:00 07:00 Intake Total 375 ml 590 ml Output Total 200 ml 500 ml Balance 175 ml 90 ml Free Water 230 ml IV Total 375 ml 300 ml Tube Feeding 60 ml Output Urine Total 200 ml 500 ml Laboratory Tests 04/28/16 05:00: White Blood Count [Pending], Red Blood Count [Pending], Hemoglobin [Pending], Hematocrit [Pending], Mean Corpuscular Volume [Pending], Mean Corpuscular Hemoglobin [Pending], Mean Corpuscular Hemoglobin Concent [Pending], Red Cell Distribution Width [Pending], Platelet Count [Pending], Mean Platelet Volume [ Pending], Neutrophils (%) (Auto) [Pending], Lymphocytes (%) (Auto) [Pending], Monocytes (%) (Auto) [Pending], Eosinophils (%) (Auto) [Pending], Basophils (%) (Auto) [Pending], Sodium Level 146H, Potassium Level 3.6, Chloride Level 103, Carbon Dioxide Level 26, Anion Gap 17H, Blood Urea Nitrogen 111H, Creatinine 3.1H, Estimat Glomerular Filtration Rate , Glucose Level 270#H, Calcium Level 8.2L Height (Feet): 5 Height (Inches): 3.00 Weight (Pounds): 136 General Appearance: lethargic EENT: normal ENT inspection Neck: normal alignment Cardiovascular: normal peripheral pulses, normal rate, regular rhythm Respiratory/Chest: chest wall non-tender, lungs clear, normal breath sounds Abdomen: normal bowel sounds, non tender, soft Extremities: normal inspection Edema: no edema noted Arm (L), no edema noted Arm (R), no edema noted Leg (L), no edema noted Leg (R), no edema noted Pedal (L), no edema noted Pedal (R), no edema noted Generalized Neurologic: motor weakness Skin: normal pigmentation, warm/dry FRANDY SWIFT Apr 28, 2016 08:46
[2016-04-28] MEDS: Heparin 5000 units/ml inj SUBQ SCH ×2 (09:00→22:08)
[2016-04-28] MEDS: OLANZapine 2.5mg tab ORAL SCH (09:55)
[2016-04-28] MEDS: Pantoprazole Inj IV SCH ×2 (10:05→22:03)
[2016-04-28 11:13] LABS: MICROALBUMIN/CREATININE RATIO 1269.6 mg/g creat (0.0-30.0)
[2016-04-28 12:15] VITALS: BP 114/57
--- NOTE | 2016-04-28 15:05 | Infectious Diseases Prog Note ---
Assessment/Plan Problems: (1) Sepsis Assessment & Plan: due to UTI, and foot infection, continue zyvox and cefepime empirically, blood culture grew gram positive cocci in one bottle, most likely contamination. (2) Gangrene of foot Assessment & Plan: recommend heat regulator eval, MRI of the foot ruled out osteomyelitis, continue wide spectrum antibiotics and local wound care (3) Open wnd foot-complicated Assessment & Plan: with escars, appreciate heat regulator input , had significant vascular disease , recommend vascular eval , continue local wound care and off loading (4) DM (diabetes mellitus) Assessment & Plan: recommend tight glycemic control to keep blood glucose between 80-120 (5) UTI (urinary tract infection) Assessment & Plan: with streptococcus sp, already on cefepime, await sensitivity (6) Acute hypernatremia Assessment & Plan: due to dehydration, continue IVF, monitor sodium level, and electrolytes (7) Colonization with VRE (vancomycin-resistant enterococcus) Assessment & Plan: keep in contact isolation Subjective ROS Limited/Unobtainable: Yes Allergies: Coded Allergies: No Known Allergies (Unverified , 01/06/14) Subjective she is demented, resting in bed, not in distress, afebrile. Objective Vital Signs Last 24 Hour Vital Signs Date Time Temp Pulse Resp B/P Pulse Ox O2 Delivery O2 Flow Rate FiO2 04/28/16 12:15 98.8 83 18 114/57 98 Room Air 04/28/16 08:33 98.4 84 18 129/46 97 Room Air 04/28/16 07:36 77 18 Room Air 04/28/16 05:48 130/48 04/28/16 04:00 97.9 81 22 123/48 98 Room Air 04/28/16 00:00 97.3 80 22 109/50 99 Room Air 04/28/16 00:00 117/40 04/27/16 20:19 74 16 Room Air 21 04/27/16 20:00 96.8 78 18 137/60 97 Room Air 04/27/16 17:21 100/60 04/27/16 16:00 97.5 77 16 114/59 96 Room Air 04/27/16 15:45 Room Air 04/27/16 15:45 77 18 114/49 96 Room Air Height (Feet): 5 Height (Inches): 3.00 Weight (Pounds): 136 General Appearance: WD/WN, no acute distress HEENT: normocephalic, atraumatic, anicteric, mucous membranes moist Respiratory/Chest: chest wall non-tender, lungs clear, normal breath sounds, no respiratory distress, no accessory muscle use Cardiovascular: normal peripheral pulses, normal rate, regular rhythm, no gallop/murmur Abdomen: normal bowel sounds, soft, non tender, no organomegaly, non distended , no mass, no scars Extremities: no cyanosis, no clubbing, other - right foot wound Skin: no rash, no lesions, ulcers Microbiology Date/Time Source Procedure Growth Status 04/25/16 19:00 Blood Blood Culture - Preliminary NO GROWTH AFTER 48 HOURS Resulted 04/25/16 18:50 Blood Blood Culture - Preliminary Gram Positive Cocci Resulted 04/26/16 03:00 Wound Gram Stain - Final Resulted 04/26/16 03:00 Wound Wound Culture - Preliminary NO GROWTH AFTER 24 HOURS Resulted 04/25/16 22:00 Nasal Nares MRSA Culture - Final NO METHICILLIN RESISTANT STAPH AUREUS... Complete 04/26/16 02:30 Urine,Clean Catch Urine Culture - Preliminary Streptococcus Species Resulted 04/25/16 19:40 Urine,Clean Catch Urine Culture - Preliminary Enterococcus Faecium - Vre Gram Negative Jhoan Resulted 04/25/16 22:00 Rectum VRE Culture - Final Enterococcus Faecium - Vre Complete Laboratory Tests Test 04/28/16 05:00 White Blood Count 16.0 K/UL (4.8-10.8) H Red Blood Count 2.68 M/UL (4.20-5.40) L Hemoglobin 8.2 G/DL (12.0-16.0) L Hematocrit 25.5 % (37.0-47.0) L Mean Corpuscular Volume 95 FL (80-99) Mean Corpuscular Hemoglobin 30.5 PG (27.0-31.0) Mean Corpuscular Hemoglobin Concent 32.1 G/DL (32.0-36.0) Red Cell Distribution Width 13.5 % (11.6-14.8) Platelet Count 246 K/UL (150-450) Mean Platelet Volume 7.8 FL (6.5-10.1) Neutrophils (%) (Auto) 69.0 % (45.0-75.0) Lymphocytes (%) (Auto) 24.3 % (20.0-45.0) Monocytes (%) (Auto) 5.5 % (1.0-10.0) Eosinophils (%) (Auto) 0.9 % (0.0-3.0) Basophils (%) (Auto) 0.3 % (0.0-2.0) Sodium Level 146 mEQ/L (135-145) H Potassium Level 3.6 mEQ/L (3.4-4.9) Chloride Level 103 mEQ/L (98-107) Carbon Dioxide Level 26 mEQ/L (20-30) Anion Gap 17 (5-15) H Blood Urea Nitrogen 111 mg/dL (7-23) H Creatinine 3.1 mg/dL (0.5-0.9) H Estimat Glomerular Filtration Rate mL/min (>60) Glucose Level 270 mg/dL (74-106) #H Calcium Level 8.2 mg/dL (8.6-10.2) L Current Medications Medications (Trade) Dose Ordered Sig/Issa Route PRN Reason Start Time Stop Time Status Last Admin Dose Admin Acetaminophen (Tylenol) 650 mg Q4H PRN ORAL fever 04/27/16 21:00 05/27/16 20:59 Albuterol/ Ipratropium (DuoNeb 0.5-3(2.5)mg/3ml) 3 ml Q4H PRN HHN Shortness of Breath 04/27/16 21:00 05/02/16 20:59 Amlodipine Besylate (Norvasc) 10 mg DAILY ORAL 04/28/16 09:00 05/28/16 08:59 Cefepime HCl 1 gm/ Dextrose 55 ml @ 110 mls/hr Q24H IVPB 04/28/16 03:00 05/03/16 02:59 04/28/16 02:34 Clonidine HCl (Catapres) 0.1 mg Q6HR GT 04/28/16 00:00 05/28/16 00:00 Dextrose (Dextrose 50%) STAT PRN IV Hypoglycemia 04/27/16 21:00 05/27/16 20:59 Heparin Sodium (Porcine) (Heparin 5000 units/ml) 5,000 units EVERY 12 HOURS SUBQ 04/27/16 21:00 05/27/16 20:59 04/27/16 21:52 Insulin Aspart (NovoLOG) BEFORE MEALS AND HS SUBQ 04/27/16 22:00 05/27/16 21:59 04/28/16 11:38 Linezolid (Zyvox) 300 ml @ 300 mls/hr Q12HR IVPB 04/27/16 21:00 05/04/16 20:59 04/28/16 10:06 Morphine Sulfate (Morphine Sulfate) 2 mg Q4H PRN IVP Moderate Pain (Pain Scale 4-6) 04/27/16 21:00 05/04/16 20:59 Nitroglycerin (Ntg) 0.4 mg Every 5 Minutes PRN SL Prn Chest Pain 04/27/16 19:45 05/27/16 19:44 Olanzapine (ZyPREXA) 7.5 mg DAILY ORAL 04/28/16 09:00 05/28/16 08:59 04/28/16 09:55 Ondansetron HCl (Zofran) 4 mg Q6H PRN IVP Nausea & Vomiting 04/27/16 21:00 05/27/16 20:59 Pantoprazole (Protonix) 40 mg Q12HR IV 04/27/16 21:00 05/27/16 20:59 04/28/16 10:05 Polyethylene Glycol (Miralax) 17 gm DAILYPRN PRN ORAL Constipation 04/27/16 22:45 05/27/16 22:44 Temazepam (Restoril) 15 mg HSPRN PRN ORAL Insomnia 04/27/16 21:00 05/04/16 20:59 Virginia Matamoros M.D. Apr 28, 2016 15:05
[2016-04-28 16:28] VITALS: BP 117/82
--- NOTE | 2016-04-28 16:52 | Pulmonology Progress Note ---
Assessment/Plan Assessment/Plan ASSESSMENT sepsis UTI R LE 5th toe gangrene open wound RLE -POA ESRD acute hypernatremia - improving hypercalcemia severe dehydration DM OOC Severe occlusive PAD with leg ischemia Encephalopathy Hx of DVTs with IVC filter Right chest PermCath with exposed cuff dysphagia, G tube PLAN OF CARE MS floor abx, ID follows HD as per nephro, monitor renal parameters lytes need exchange of Permacath, done by vasc surgeon severe hyperNa likely 2 to severe dehydration, improving per nephro - increased free water via G tube BS management with short acting Novolog premeal and long acting Levemir and SS of insulin prn, Arterial Duplex with bilateral occlusion distal femoral artery vascular surgery eval noted, Not salvageable right leg will need amputation monitor HH, transfuse prn, anemia workup strict aspiration precautions, GT feeding, monitor tolerance case discussed and evaluated by supervising physician Subjective Allergies: Coded Allergies: No Known Allergies (Unverified , 01/06/14) Subjective persistent leukocytosis, afebrile HH trending down BS not well controlled Objective Last 24 Hour Vital Signs Date Time Temp Pulse Resp B/P Pulse Ox O2 Delivery O2 Flow Rate FiO2 04/28/16 16:28 97.2 89 18 117/82 97 Room Air 04/28/16 14:25 Room Air 04/28/16 13:10 Room Air 04/28/16 12:15 98.8 83 18 114/57 98 Room Air 04/28/16 08:33 98.4 84 18 129/46 97 Room Air 04/28/16 07:36 77 18 Room Air 04/28/16 05:48 130/48 04/28/16 04:00 97.9 81 22 123/48 98 Room Air 04/28/16 00:00 97.3 80 22 109/50 99 Room Air 04/28/16 00:00 117/40 04/27/16 20:19 74 16 Room Air 21 04/27/16 20:00 96.8 78 18 137/60 97 Room Air 04/27/16 17:21 100/60 Intake and Output 04/27/16 04/28/16 19:00 07:00 Intake Total 825 ml 590 ml Output Total 200 ml 500 ml Balance 625 ml 90 ml Free Water 230 ml IV Total 375 ml 300 ml Tube Feeding 60 ml Hemodialysis 450 ml Output Urine Total 200 ml 500 ml Peritoneal Dialysis UF 0 ml General Appearance: no acute distress, other - bedridden female HEENT: normocephalic, atraumatic, no JVD Respiratory/Chest: no respiratory distress, no accessory muscle use, decreased breath sounds - at bases, other - R chest Permacath Cardiovascular: normal rate, no JVD Abdomen: soft, non tender, other Extremities: other - LLE with cast, R 5th toe gangrenous, RLE open wound Neurologic/Psychiatric: abnormal gait - bedridden, alert Microbiology Date/Time Source Procedure Growth Status 04/25/16 19:00 Blood Blood Culture - Preliminary NO GROWTH AFTER 48 HOURS Resulted 04/25/16 18:50 Blood Blood Culture - Preliminary Gram Positive Cocci Resulted 04/26/16 03:00 Wound Gram Stain - Final Resulted 04/26/16 03:00 Wound Wound Culture - Preliminary NO GROWTH AFTER 24 HOURS Resulted 04/25/16 22:00 Nasal Nares MRSA Culture - Final NO METHICILLIN RESISTANT STAPH AUREUS... Complete 04/26/16 02:30 Urine,Clean Catch Urine Culture - Preliminary Streptococcus Species Resulted 04/25/16 19:40 Urine,Clean Catch Urine Culture - Preliminary Enterococcus Faecium - Vre Gram Negative Jhoan Resulted 04/25/16 22:00 Rectum VRE Culture - Final Enterococcus Faecium - Vre Complete Laboratory Tests 04/28/16 05:00: White Blood Count 16.0H, Red Blood Count 2.68L, Hemoglobin 8.2L, Hematocrit 25.5L, Mean Corpuscular Volume 95, Mean Corpuscular Hemoglobin 30.5, Mean Corpuscular Hemoglobin Concent 32.1, Red Cell Distribution Width 13.5, Platelet Count 246, Mean Platelet Volume 7.8, Neutrophils (%) (Auto) 69.0, Lymphocytes (% ) (Auto) 24.3, Monocytes (%) (Auto) 5.5, Eosinophils (%) (Auto) 0.9, Basophils ( %) (Auto) 0.3, Sodium Level 146H, Potassium Level 3.6, Chloride Level 103, Carbon Dioxide Level 26, Anion Gap 17H, Blood Urea Nitrogen 111H, Creatinine 3.1H, Estimat Glomerular Filtration Rate , Glucose Level 270#H, Calcium Level 8.2L Current Medications Medications (Trade) Dose Ordered Sig/Issa Route PRN Reason Start Time Stop Time Status Last Admin Dose Admin Acetaminophen (Tylenol) 650 mg Q4H PRN ORAL fever 04/27/16 21:00 05/27/16 20:59 Albuterol/ Ipratropium (DuoNeb 0.5-3(2.5)mg/3ml) 3 ml Q4H PRN HHN Shortness of Breath 04/27/16 21:00 05/02/16 20:59 Amlodipine Besylate (Norvasc) 10 mg DAILY ORAL 04/28/16 09:00 05/28/16 08:59 Cefepime HCl 1 gm/ Dextrose 55 ml @ 110 mls/hr Q24H IVPB 04/28/16 03:00 05/03/16 02:59 04/28/16 02:34 Clonidine HCl (Catapres) 0.1 mg Q6HR GT 04/28/16 00:00 05/28/16 00:00 Dextrose (Dextrose 50%) STAT PRN IV Hypoglycemia 04/27/16 21:00 05/27/16 20:59 Heparin Sodium (Porcine) (Heparin 5000 units/ml) 5,000 units EVERY 12 HOURS SUBQ 04/27/16 21:00 05/27/16 20:59 04/27/16 21:52 Insulin Aspart (NovoLOG) BEFORE MEALS AND HS SUBQ 04/27/16 22:00 05/27/16 21:59 04/28/16 16:51 Linezolid (Zyvox) 300 ml @ 300 mls/hr Q12HR IVPB 04/27/16 21:00 05/04/16 20:59 04/28/16 10:06 Morphine Sulfate (Morphine Sulfate) 2 mg Q4H PRN IVP Moderate Pain (Pain Scale 4-6) 04/27/16 21:00 05/04/16 20:59 Nitroglycerin (Ntg) 0.4 mg Every 5 Minutes PRN SL Prn Chest Pain 04/27/16 19:45 05/27/16 19:44 Olanzapine (ZyPREXA) 7.5 mg DAILY ORAL 04/28/16 09:00 05/28/16 08:59 04/28/16 09:55 Ondansetron HCl (Zofran) 4 mg Q6H PRN IVP Nausea & Vomiting 04/27/16 21:00 05/27/16 20:59 Pantoprazole (Protonix) 40 mg Q12HR IV 04/27/16 21:00 05/27/16 20:59 04/28/16 10:05 Polyethylene Glycol (Miralax) 17 gm DAILYPRN PRN ORAL Constipation 04/27/16 22:45 05/27/16 22:44 Temazepam (Restoril) 15 mg HSPRN PRN ORAL Insomnia 04/27/16 21:00 05/04/16 20:59 Yonis ([facility])Vidhi NP Apr 28, 2016 16:52
--- NOTE | 2016-04-28 16:55 | General Progress Note ---
Progress Note Progress Note Dictated consult to follow Asked by Dr Kyle Fletcher to eval re right foot gangrene Severe occlusive PAD with leg ischemia Renal heart failure Encephalopathy DVTs with IVC filter Sepsis Right chest permcath with exposed cuff Not salvageable right leg Rec Will need right leg above knee amputation once medically cleared and consented Permcath exchange (cuff exposed) Abx per CRISTA MOULTON Apr 28, 2016 16:55
--- NOTE | 2016-04-28 17:03 | Diagnostic Imaging Report ---
APPROVED REPORT CPT Code: 23304 RIGHT LEG: Venous imaging reveals a patent deep venous system. There is no evidence of thrombus within the femoral, popliteal or tibial segments. The greater saphenous vein is also within normal limits. Doppler indicates normal spontaneous flow within these segments. LEFT LEG: Venous imaging reveals recanalized chronic thrombus in the superficial femoral to popliteal veins. Imaging also reveals patency of the common femoral and calf veins. The greater saphenous vein is also within normal limits. Doppler indicates normal spontaneous flow within these segments. There is no evidence of acute deep vein thrombosis.
--- NOTE | 2016-04-28 17:03 | Diagnostic Imaging Report ---
APPROVED REPORT CPT Code: 84458 Symptoms Comments: R/O occlusion or stenosis RIGHT LEG: Common femoral artery waveform analysis is within normal limits at rest. Color flow duplex sonography reveals an occlusion in the distal femoral artery. Imaging also reveals another occlusion in the popliteal, posterior tibial, anterior tibial and dorsalis pedis arteries. The color and Doppler flow were absent within these segments. LEFT LEG: Common femoral artery waveform analysis is within normal limits at rest. Color flow duplex sonography reveals an occlusion in the distal femoral artery. Reconstitution is noted at the distal popliteal artery. The tibioperoneal trunks were not well visualized. The posterior tibial artery is also not well visualized, however, the anterior tibial and dorsalis pedis arteries are patent. Doppler tibial artery waveform analysis is compatible with severe ischemia. MARY BETH Moran was notified of abnormal results at 1400 hours.
--- NOTE | 2016-04-28 17:03 | Diagnostic Imaging Report ---
APPROVED REPORT CPT Code: 51216 Vascular Symptoms Comments: Altered LOC Doppler Spectral Velocity Analysis RightLeft BILATERAL: CCA - Imaging reveals no significant plaque in the right and left common external carotid arteries. The Doppler signal indicates the degree of stenosis is minimal (10%-20%) in the internal and external carotid arteries. VERTEBRAL- The vertebral arteries are patent without evidence of stenosis or steal.
--- NOTE | 2016-04-28 17:05 | Diagnostic Imaging Report ---
APPROVED REPORT CPT Code: 92275 Symptoms Comments: Many wounds both feets R/O occlusion Comments Infection RIGHT LEG: Common femoral artery waveform analysis is within normal limits at rest. Color flow duplex sonography reveals an occlusion in the distal femoral artery. Imaging also reveals another occlusion in the popliteal, posterior tibial, anterior tibial and dorsalis pedis arteries. The color and Doppler flow were absent within these segments. LEFT LEG: Common femoral artery waveform analysis is within normal limits at rest. Color flow duplex sonography reveals an occlusion in the distal femoral artery. Reconstitution is noted at the distal popliteal artery. The tibioperoneal trunks were not imaged due to a below the knee cast. MARY BETH Philippe was notified of abnormal results at 1900 hours.
[2016-04-28] MEDS ORDERED: NovoLOG Insulin Flexpen SUBQ STA (17:51)
[2016-04-28] MEDS ORDERED: Levemir Flexpen SUBQ ONE ×2 (18:00→21:15)
[2016-04-28 20:00] VITALS: BP 129/59
--- NOTE | 2016-04-28 20:32 | Nephrology Progress Note ---
Assessment/Plan Assessment 1. Hypernatremia improving 2. End-stage renal disease based on the patient evaluation. 3. Hypercalcemia. 4. Severe dehydration. 5. Elevated white blood cell count and sepsis. Plan plan to replace dialysis cath free water via g tube continue epogen iv antibiotic check phos check pre albumin Subjective Constitutional: Reports: no symptoms HEENT: Reports: no symptoms Genitourinary: Reports: no symptoms Neurologic/Psychiatric: Reports: no symptoms Subjective had dialysis today but unfortunately cath didn't work well Objective Objective Last 24 Hour Vital Signs Date Time Temp Pulse Resp B/P Pulse Ox O2 Delivery O2 Flow Rate FiO2 04/28/16 17:05 117/82 04/28/16 16:28 97.2 89 18 117/82 97 Room Air 04/28/16 14:25 Room Air 04/28/16 13:10 Room Air 04/28/16 12:15 98.8 83 18 114/57 98 Room Air 04/28/16 08:33 98.4 84 18 129/46 97 Room Air 04/28/16 07:36 77 18 Room Air 04/28/16 05:48 130/48 04/28/16 04:00 97.9 81 22 123/48 98 Room Air 04/28/16 00:00 97.3 80 22 109/50 99 Room Air 04/28/16 00:00 117/40 Intake and Output 04/27/16 04/28/16 19:00 07:00 Intake Total 825 ml 590 ml Output Total 200 ml 500 ml Balance 625 ml 90 ml Free Water 230 ml IV Total 375 ml 300 ml Tube Feeding 60 ml Hemodialysis 450 ml Output Urine Total 200 ml 500 ml Peritoneal Dialysis UF 0 ml Laboratory Tests 04/28/16 05:00: White Blood Count 16.0H, Red Blood Count 2.68L, Hemoglobin 8.2L, Hematocrit 25.5L, Mean Corpuscular Volume 95, Mean Corpuscular Hemoglobin 30.5, Mean Corpuscular Hemoglobin Concent 32.1, Red Cell Distribution Width 13.5, Platelet Count 246, Mean Platelet Volume 7.8, Neutrophils (%) (Auto) 69.0, Lymphocytes (% ) (Auto) 24.3, Monocytes (%) (Auto) 5.5, Eosinophils (%) (Auto) 0.9, Basophils ( %) (Auto) 0.3, Sodium Level 146H, Potassium Level 3.6, Chloride Level 103, Carbon Dioxide Level 26, Anion Gap 17H, Blood Urea Nitrogen 111H, Creatinine 3.1H, Estimat Glomerular Filtration Rate , Glucose Level 270#H, Calcium Level 8.2L 04/28/16 16:50: Glucose Level 686#*H Height (Feet): 5 Height (Inches): 3.00 Weight (Pounds): 136 Objective HEENT/NECK: Head and neck: No JVP. No LAD. No thyromegaly. Extraocular movement intact. Pupils are reactive to light and accommodation. LUNGS: Decreased breathing sound on the both sides. CARDIAC: Regular rate and rhythm. S1 and S2. No murmur. No rub. ABDOMEN: Soft, nontender, and nondistended. EXTREMITIES: Left lower extremity is on cast. DAINA AVELAR Apr 28, 2016 20:32
[2016-04-28] MEDS ORDERED: Levemir Flexpen SUBQ SCH ×2 (21:00→22:00)
[2016-04-28] MEDS ORDERED: NovoLOG Insulin Flexpen SUBQ ONE (21:30)
--- NOTE | 2016-04-28 21:49 | Cardiology Progress Note ---
Assessment/Plan Assessment/Plan 1. Acute on chronic diastolic heart failure, continue with decreasing preload ( i.e. HD)and afterload reduction (i.e. use of CCB). 2. History of hypertension. 3. Paroxysmal atrial fibrillation per records as the patient's rhythm is now sinus. She would be considered to be high risk for CVA in face of paroxysmal atrial fibrillation, NOAC contraindicated as she had GI bleed recently. 4. History of [id number] myocardial infarction with troponins as high as 5 in the previous admission. Medical therapy in view of her advanced encephalopathy and stroke in the past. We will continue with the atorvastatin at this time, ASA is contraindicated. 5. History of deep vein thrombosis, status post inferior vena cava filter placement. Objective Last 24 Hour Vital Signs Date Time Temp Pulse Resp B/P Pulse Ox O2 Delivery O2 Flow Rate FiO2 04/28/16 17:05 117/82 04/28/16 16:28 97.2 89 18 117/82 97 Room Air 04/28/16 14:25 Room Air 04/28/16 13:10 Room Air 04/28/16 12:15 98.8 83 18 114/57 98 Room Air 04/28/16 08:33 98.4 84 18 129/46 97 Room Air 04/28/16 07:36 77 18 Room Air 04/28/16 05:48 130/48 04/28/16 04:00 97.9 81 22 123/48 98 Room Air 04/28/16 00:00 97.3 80 22 109/50 99 Room Air 04/28/16 00:00 117/40 Intake and Output 04/27/16 04/28/16 19:00 07:00 Intake Total 825 ml 590 ml Output Total 200 ml 500 ml Balance 625 ml 90 ml Free Water 230 ml IV Total 375 ml 300 ml Tube Feeding 60 ml Hemodialysis 450 ml Output Urine Total 200 ml 500 ml Peritoneal Dialysis UF 0 ml Laboratory Tests Test 04/28/16 05:00 04/28/16 16:50 White Blood Count 16.0 K/UL (4.8-10.8) H Red Blood Count 2.68 M/UL (4.20-5.40) L Hemoglobin 8.2 G/DL (12.0-16.0) L Hematocrit 25.5 % (37.0-47.0) L Mean Corpuscular Volume 95 FL (80-99) Mean Corpuscular Hemoglobin 30.5 PG (27.0-31.0) Mean Corpuscular Hemoglobin Concent 32.1 G/DL (32.0-36.0) Red Cell Distribution Width 13.5 % (11.6-14.8) Platelet Count 246 K/UL (150-450) Mean Platelet Volume 7.8 FL (6.5-10.1) Neutrophils (%) (Auto) 69.0 % (45.0-75.0) Lymphocytes (%) (Auto) 24.3 % (20.0-45.0) Monocytes (%) (Auto) 5.5 % (1.0-10.0) Eosinophils (%) (Auto) 0.9 % (0.0-3.0) Basophils (%) (Auto) 0.3 % (0.0-2.0) Sodium Level 146 mEQ/L (135-145) H Potassium Level 3.6 mEQ/L (3.4-4.9) Chloride Level 103 mEQ/L (98-107) Carbon Dioxide Level 26 mEQ/L (20-30) Anion Gap 17 (5-15) H Blood Urea Nitrogen 111 mg/dL (7-23) H Creatinine 3.1 mg/dL (0.5-0.9) H Estimat Glomerular Filtration Rate mL/min (>60) Glucose Level 270 mg/dL (74-106) #H 686 mg/dL (74-106) #*H Calcium Level 8.2 mg/dL (8.6-10.2) L Microbiology Date/Time Source Procedure Growth Status 04/26/16 03:00 Wound Gram Stain - Final Resulted 04/26/16 03:00 Wound Wound Culture - Preliminary NO GROWTH AFTER 24 HOURS Resulted 04/25/16 22:00 Nasal Nares MRSA Culture - Final NO METHICILLIN RESISTANT STAPH AUREUS... Complete 04/26/16 02:30 Urine,Clean Catch Urine Culture - Preliminary Streptococcus Species Resulted 04/25/16 22:00 Rectum VRE Culture - Final Enterococcus Faecium - Vre Complete Objective GENERAL: The patient is a very unfortunate 80-year-old female, in no apparent respiratory distress, not awake. HEENT: Atraumatic and normocephalic. Anicteric. Pupils are equal, round, and reactive to light and accommodation. Conjunctival pallor. NECK: JVP less than 5 cm. No carotid bruit. Carotid upstrokes 2+ bilaterally. CARDIOVASCULAR: Normal S1 and S2. Regular rate and rhythm. No murmurs, gallops, or rubs. Heart sounds are relatively distant. LUNGS: Diminished breath sounds in both bases. ABDOMEN: Soft, nontender, and nondistended. No hepatosplenomegaly. Positive bowel sounds. EXTREMITIES: No evidence of edema, clubbing, or cyanosis. There is right upper extremity AV shunt with thrill. There is also decreased right motor more function. MICHELLE GARCIA Apr 28, 2016 21:49
[2016-04-29] VITALS (7 sets, daily range): BP systolic 117–161; BP diastolic 44–87
[2016-04-29] MEDS: Cefepime HCl 1 GM in D5W 55 ML IVPB SCH (02:22)
[2016-04-29] MEDS: NovoLOG Insulin Flexpen SUBQ SCH ×7 (05:28→23:42)
--- NOTE | 2016-04-29 05:37 | Consultation ---
DATE OF CONSULTATION: 04/28/2016 VASCULAR SURGERY CONSULTATION CONSULTING PHYSICIAN: Tc Murdock M.D. REFERRING PHYSICIAN: 1. Kyle Fletcher D.P.M. 2. Tavon Lyn D.O. REASON FOR EVALUATION: Right foot gangrene and severe arterial occlusive disease. HISTORY OF PRESENT ILLNESS: This is a 80-year-old, obese female, who suffers from heart failure, renal failure on dialysis through a right chest Perm-a catheter. The patient is very altered has encephalopathy, prior history of diabetes mellitus, deep venous thrombosis and IVC filter placement. The patient is nonambulatory with feeding gastrostomy tube and a right chest Perma catheter, which is nonfunctional. Catheter cuff is exposed and she was found to have right foot extensive deep gangrenous ulceration with severe lower extremity ischemia. Vascular Surgery is consulted for further evaluation. The patient is not verbal and confused. All the history is obtained from the medical records. PAST MEDICAL HISTORY: As above. History of respiratory failure, renal failure on hemodialysis, congestive heart failure, chronic obstructive pulmonary disorder, hypertension, morbid obesity, history of DVT with IVC filter, history of non-ST elevation myocardial infarction, arrhythmias, sepsis, E. coli bacteremia, and diabetes mellitus. She has a feeding gastrostomy tube and IVC filter placement. MEDICATIONS: See attached MAR. ALLERGIES: No known drug allergies. SOCIAL HISTORY: Unobtainable. The patient is altered. PHYSICAL EXAMINATION: GENERAL: The patient is drowsy. VITAL SIGNS: Vital were stable. Temperature is 99 degrees, heart rate is 90, blood pressure 146/74, respirations 20, saturations 96% on room air. She has a right chest Perma catheter with the cuff exposed. The site is clean and intact. LUNGS: Rhonchi bilaterally. HEART: Regular. ABDOMEN: Soft and nontender. She has a feeding gastrostomy tube. EXTREMITIES: She has palpable femoral pulses, absent popliteal, and pedal pulses bilaterally. She has a right before gangrenous necrosis, deep involving the lateral foot, the dorsum of the foot. On the toes, there are absent pedal pulses. LABORATORY DATA: Revealed a BUN of 132 on admission, creatinine 3.8, and INR 1.0. Troponin less than 0.3. WBC was 22.9. On admission, hemoglobin 14.8, and platelet count 526,000. Lower extremity duplex was reviewed. IMPRESSION: 1. Non-salvageable right leg with severe ischemia, calcific multilevel arterial occlusive disease, and right foot gangrenous necrosis. 2. History of renal failure on hemodialysis through a right chest Perma catheter malfunctioning with the cuff exposed. 3. Sepsis with leukocytosis. 4. Encephalopathy with history of deep venous thrombosis and inferior vena cava filter. 5. Diabetes mellitus. 6. Arrhythmias. 7. Heart failure. PLAN: Right leg is not salvageable. The patient will require right leg [id number] amputation. Once medically optimized and cleared and consented, the patient will need her Perma catheter removed, cultured, and has a temporary Lopez catheter placement. Antibiotics per ID service. A new tunneled Perma catheter once sepsis cleared after her leg amputation & more permanent upper arm access in future with arm venography and duplex. Continue decubitus precautions. We will obtain an abdominal x-ray to evaluate the filter. The above was discussed at length with the patient's son, Berlin Carranza, who understood all and wishes to proceed with the above recommendation. The above was also discussed with the nurse at bedside. Tc Murdock M.D. DR: Andrea JOB#: [id number] CC: Kylee Campbell D.PEyad ; Fax#: [phone] Lopez M.D.; Fax#: [phone] Matin, M.D.; Fax#: [phone] HOMAR
[2016-04-29] MEDS: Levemir Flexpen SUBQ SCH ×2 (06:16→17:34)
[2016-04-29] MEDS ORDERED: NovoLOG Insulin Flexpen SUBQ ONE (06:30)
[2016-04-29 06:37] LABS: MEAN CORPUSCULAR HEMOGLOBIN 31.1 PG (27.0-31.0); MEAN CORPUSCULAR HGB CONC 32.3 G/DL (32.0-36.0); MEAN CORPUSCULAR VOLUME 96 FL (80-99); MEAN PLATELET VOLUME 7.6 FL (6.5-10.1); PLATELET COUNT 228 K/UL (150-450); RED BLOOD COUNT 2.46 M/UL (4.20-5.40); RED CELL DISTRIBUTION WIDTH 13.7 % (11.6-14.8); WHITE BLOOD COUNT 18.8 K/UL (4.8-10.8)
[2016-04-29 06:51] LABS: ANION GAP 18 (5-15); CALCIUM 8.5 mg/dL (8.6-10.2); CARBON DIOXIDE 25 mEQ/L (20-30); CHLORIDE 101 mEQ/L (98-107); HEMOLYSIS 3; POTASSIUM 3.6 mEQ/L (3.4-4.9); SODIUM 144 mEQ/L (135-145)
[2016-04-29 07:47] LABS: HEMOLYSIS 2; IRON 54 ug/dL (37-145); TOTAL IRON BINDING CAPACITY 170 ug/dL (250-400)
[2016-04-29 08:01] LABS: FERRITIN 296 ng/mL (13-150)
[2016-04-29] MEDS: Heparin 5000 units/ml inj SUBQ SCH ×3 (09:00→22:36)
--- NOTE | 2016-04-29 09:01 | General Progress Note ---
Assessment/Plan Problem List: (1) Morbid obesity ICD Codes: E66.01 - Morbid obesity SNOMED: 248331607 (2) UTI (urinary tract infection) ICD Codes: N39.0 - Urinary tract infection, site not specified SNOMED: 78652958 (3) Sepsis ICD Codes: A41.9 - Sepsis, unspecified organism SNOMED: 48654037 (4) Open wnd foot-complicated ICD Codes: S91.309A - Unspecified open wound, unspecified foot, initial encounter SNOMED: 098534124 (5) DM (diabetes mellitus) ICD Codes: E11.9 - DM (diabetes mellitus) SNOMED: 08931777 (6) ESRD (end stage renal disease) ICD Codes: N18.6 - End stage renal disease SNOMED: 23997642 Status: stable, tolerating diet Assessment/Plan ot pt diet wound care abd vasc pod eval dialysis cbc bmp am possible leg sx pending promise ltach eval Subjective Constitutional: Reports: weakness Allergies: Coded Allergies: No Known Allergies (Unverified , 01/06/14) All Systems: reviewed and negative except above Subjective calm in bed Objective Last 24 Hour Vital Signs Date Time Temp Pulse Resp B/P Pulse Ox O2 Delivery O2 Flow Rate FiO2 04/29/16 05:36 133/53 04/29/16 04:00 98.1 83 20 117/52 96 Room Air 04/29/16 00:00 98.1 87 20 133/52 97 Room Air 04/29/16 00:00 125/59 04/28/16 20:00 97.7 87 18 129/59 93 Room Air 04/28/16 19:30 78 18 Room Air 04/28/16 17:05 117/82 04/28/16 16:28 97.2 89 18 117/82 97 Room Air 04/28/16 14:25 Room Air 04/28/16 13:10 Room Air 04/28/16 12:15 98.8 83 18 114/57 98 Room Air Intake and Output 04/28/16 04/29/16 19:00 07:00 Intake Total 578 ml 390 ml Output Total 712 ml 500 ml Balance -134 ml -110 ml Free Water 230 ml Tube Feeding 340 ml 160 ml Hemodialysis 238 ml Output Urine Total 450 ml 500 ml Hemodialysis UF 262 ml # Bowel Movements 1 1 Laboratory Tests 04/28/16 16:50: Glucose Level 686#*H 04/29/16 04:30: Glucose Level 432#H, White Blood Count 18.8H, Red Blood Count 2.46L, Hemoglobin 7.6L, Hematocrit 23.6L, Mean Corpuscular Volume 96, Mean Corpuscular Hemoglobin 31.1H, Mean Corpuscular Hemoglobin Concent 32.3, Red Cell Distribution Width 13.7, Platelet Count 228, Mean Platelet Volume 7.6, Neutrophils (%) (Auto) , Lymphocytes (%) (Auto) , Monocytes (%) (Auto) , Eosinophils (%) (Auto) , Basophils (%) (Auto) , Neutrophils % (Manual) [Pending], Lymphocytes % (Manual) [Pending], Platelet Estimate [Pending], Platelet Morphology [Pending], Sodium Level 144, Potassium Level 3.6, Chloride Level 101, Carbon Dioxide Level 25, Anion Gap 18H, Blood Urea Nitrogen 111H, Creatinine 3.0H, Estimat Glomerular Filtration Rate , Calcium Level 8.5L, Iron Level 54, Total Iron Binding Capacity 170L, Percent Iron Saturation 32, Unsaturated Iron Binding 116, Ferritin 296H, Vitamin B12 Level 1325H, Folate [Pending] Height (Feet): 5 Height (Inches): 3.00 Weight (Pounds): 136 General Appearance: lethargic, confused EENT: normal ENT inspection Neck: normal alignment Cardiovascular: normal peripheral pulses, normal rate, regular rhythm Respiratory/Chest: chest wall non-tender, lungs clear, normal breath sounds Abdomen: normal bowel sounds, non tender, soft Extremities: normal inspection Edema: no edema noted Arm (L), no edema noted Arm (R), no edema noted Leg (L), no edema noted Leg (R), no edema noted Pedal (L), no edema noted Pedal (R), no edema noted Generalized Neurologic: motor weakness Skin: normal pigmentation, warm/dry FRANDY SWIFT Apr 29, 2016 09:01
--- NOTE | 2016-04-29 09:39 | Diagnostic Imaging Report ---
Indication: Pain Technique: Right forefoot imaging utilizing multiplanar T1 fast spin-echo, proton and T2 fast spin-echo with fat saturation, and STIR. Comparison: None Findings: Along the dorsal aspect of the second distal phalange there is T2 hyperintense/T1 hypointense signal suspicious for osteomyelitis. Please correlate clinically. There is a suggestion of a T2 hyperintense edema within the fifth proximal phalange. T1 signal alteration is not present with good T1 signal preserved. There is suggestion of ulceration along the dorsal aspect of the fifth toe. Reactive edema is most likely although osteomyelitis is not excluded. During there are the osseous structures demonstrate normal signal on T1 and T2-weighted images. There is no abscess identified. Impression: Suspected osteomyelitis involving the dorsal aspect of the second distal phalange. Reactive bone marrow edema versus osteomyelitis involving the fifth proximal phalange.
[2016-04-29] MEDS: Pantoprazole Inj IV SCH ×2 (10:09→21:00)
--- NOTE | 2016-04-29 10:21 | Diagnostic Imaging Report ---
Indication: Abdominal pain Technique: Supine views of the abdomen Comparison: None Findings: IVC filter is noted at the L2/L3 level. Gastrostomy tube projects over the left upper abdomen. Bowel gas pattern is nonobstructive and nonspecific. Large amount of stool is seen in the sigmoid colon and rectum. Atherosclerotic changes are present. Probable Rivera catheter projects over the pelvis. Impression: Large amount of stool in the sigmoid colon and rectum. Clinical correlation recommended for fecal impaction. IVC filter at the L2/L3 level. Gastrostomy. Other findings as above.
[2016-04-29] MEDS ORDERED: Tubing IV Secondary IV ONE (10:31)
[2016-04-29] MEDS ORDERED: NS 275ml ONE (10:31)
[2016-04-29] MEDS ORDERED: NS 550ML IV ONE (10:31)
[2016-04-29 10:59] LABS: BAND NEUTROPHILS % (MANUAL) 0 % (0-8); BASOPHILS % (MANUAL) 0 % (0-2); EOSINOPHILS % (MANUAL) 1 % (0-3); HYPOCHROMASIA 1+; LYMPHOCYTES % (MANUAL) 22 % (20-45); NEUTROPHILS % (MANUAL) 72 % (45-75); PLATELET ESTIMATE ADEQUATE; PLATELET MORPHOLOGY NORMAL; TOTAL CELLS COUNTED 100
[2016-04-29] MEDS: OLANZapine 2.5mg tab ORAL SCH (11:00)
--- NOTE | 2016-04-29 11:27 | Diagnostic Imaging Report ---
Indication: Right ear pain Technique: XRAY FEMUR 2 VIEWS RIGHT Comparison: None Findings: There is no radiographically evident acute fracture or dislocation. Severe osteopenia is noted. Atherosclerotic changes are seen. A Rivera catheter is present. Impression: No radiologically evident acute fracture or dislocation. If there is continued clinical concern for acute osseous abnormality, further evaluation recommended. Severe osteopenia. Atherosclerotic changes.
--- NOTE | 2016-04-29 11:46 | Diagnostic Imaging Report ---
Indication: Abnormal renal function test Technique: Renal ultrasound Findings: The right kidney measures 9.2 cm in length. The left kidney measures 8.8 cm in length. There is no hydronephrosis. No sonographically evident renal calculi are seen. The visualized portions of the inferior vena cava are unremarkable. Rivera catheter is noted in the bladder which is not well distended limiting evaluation. Impression: No hydronephrosis. Rivera catheter.
--- NOTE | 2016-04-29 12:32 | Pulmonology Progress Note ---
Assessment/Plan Assessment/Plan ASSESSMENT sepsis UTI R LE 5th toe gangrene open wound RLE -POA ESRD acute hypernatremia - improving hypercalcemia severe dehydration DM OOC Severe occlusive PAD with leg ischemia Encephalopathy Hx of DVTs with IVC filter Right chest PermCath with exposed cuff dysphagia, G tube PLAN OF CARE MS floor abx, ID follows HD as per nephro, monitor renal parameters lytes need exchange of Permacath, done by vasc surgeon severe hyper Na likely 2 to severe dehydration, improving per nephro - increased free water via G tube BS management with long acting Levemir ( increase further) and SS of insulin prn, Arterial Duplex with bilateral occlusion distal femoral artery vascular surgery eval noted, Not salvageable right leg will need amputation monitor HH, transfuse 1 u today, anemia workup with stable iron strict aspiration precautions, GT feeding, monitor tolerance case discussed and evaluated by supervising physician Subjective Allergies: Coded Allergies: No Known Allergies (Unverified , 01/06/14) Subjective persistent leukocytosis with trend up, afebrile HH trending down BS not well controlled Objective Last 24 Hour Vital Signs Date Time Temp Pulse Resp B/P Pulse Ox O2 Delivery O2 Flow Rate FiO2 04/29/16 11:37 126/71 04/29/16 10:09 106 126/71 04/29/16 08:00 98.2 86 18 126/71 Room Air 04/29/16 08:00 106 18 Room Air 04/29/16 05:36 133/53 04/29/16 04:00 98.1 83 20 117/52 96 Room Air 04/29/16 00:00 98.1 87 20 133/52 97 Room Air 04/29/16 00:00 125/59 04/28/16 20:00 97.7 87 18 129/59 93 Room Air 04/28/16 19:30 78 18 Room Air 04/28/16 17:05 117/82 04/28/16 16:28 97.2 89 18 117/82 97 Room Air 04/28/16 14:25 Room Air 04/28/16 13:10 Room Air Intake and Output 04/28/16 04/29/16 19:00 07:00 Intake Total 578 ml 390 ml Output Total 712 ml 500 ml Balance -134 ml -110 ml Free Water 230 ml Tube Feeding 340 ml 160 ml Hemodialysis 238 ml Output Urine Total 450 ml 500 ml Hemodialysis UF 262 ml # Bowel Movements 1 1 Objective General Appearance: no acute distress, other - bedridden female HEENT: normocephalic, atraumatic, no JVD Respiratory/Chest: no respiratory distress, no accessory muscle use, decreased breath sounds - at bases, other - R chest Permacath Cardiovascular: normal rate, no JVD Abdomen: soft, non tender, other Extremities: other - LLE with cast, R 5th toe gangrenous, RLE open wound Neurologic/Psychiatric: abnormal gait - bedridden, alert Laboratory Tests 04/28/16 16:50: Glucose Level 686#*H 04/29/16 04:30: Glucose Level 432#H, White Blood Count 18.8H, Red Blood Count 2.46L, Hemoglobin 7.6L, Hematocrit 23.6L, Mean Corpuscular Volume 96, Mean Corpuscular Hemoglobin 31.1H, Mean Corpuscular Hemoglobin Concent 32.3, Red Cell Distribution Width 13.7, Platelet Count 228, Mean Platelet Volume 7.6, Neutrophils (%) (Auto) , Lymphocytes (%) (Auto) , Monocytes (%) (Auto) , Eosinophils (%) (Auto) , Basophils (%) (Auto) , Differential Total Cells Counted 100, Neutrophils % ( Manual) 72, Lymphocytes % (Manual) 22, Monocytes % (Manual) 5, Eosinophils % ( Manual) 1, Basophils % (Manual) 0, Band Neutrophils 0, Platelet Estimate Adequate, Platelet Morphology Normal, Hypochromasia 1+, Sodium Level 144, Potassium Level 3.6, Chloride Level 101, Carbon Dioxide Level 25, Anion Gap 18H , Blood Urea Nitrogen 111H, Creatinine 3.0H, Estimat Glomerular Filtration Rate , Calcium Level 8.5L, Iron Level 54, Total Iron Binding Capacity 170L, Percent Iron Saturation 32, Unsaturated Iron Binding 116, Ferritin 296H, Vitamin B12 Level 1325H, Folate [Pending] Current Medications Medications (Trade) Dose Ordered Sig/Issa Route PRN Reason Start Time Stop Time Status Last Admin Dose Admin Acetaminophen (Tylenol) 650 mg Q4H PRN ORAL fever 04/27/16 21:00 05/27/16 20:59 Albuterol/ Ipratropium (DuoNeb 0.5-3(2.5)mg/3ml) 3 ml Q4H PRN HHN Shortness of Breath 1/20/17 21:00 05/02/16 20:59 Amlodipine Besylate (Norvasc) 10 mg DAILY ORAL 04/28/16 09:00 05/28/16 08:59 04/29/16 10:09 Cefepime HCl 1 gm/ Dextrose 55 ml @ 110 mls/hr Q24H IVPB 04/28/16 03:00 05/03/16 02:59 04/29/16 02:22 Clonidine HCl (Catapres) 0.1 mg Q6HR GT 04/28/16 00:00 05/28/16 00:00 04/29/16 11:37 Dextrose (Dextrose 50%) STAT PRN IV Hypoglycemia 04/27/16 21:00 05/27/16 20:59 Fluconazole/ Sodium Chloride (Diflucan 200mg/ 100ml Premix) 100 ml @ 100 mls/hr Q24H IV 04/29/16 13:00 05/06/16 12:59 Heparin Sodium (Porcine) (Heparin 5000 units/ml) 5,000 units EVERY 12 HOURS SUBQ 04/27/16 21:00 05/27/16 20:59 04/28/16 22:08 Insulin Aspart (NovoLOG) BEFORE MEALS AND HS SUBQ 04/27/16 22:00 05/27/16 21:59 04/29/16 11:29 Insulin Aspart 5 units 5 units Q6HR SUBQ 04/29/16 06:00 05/29/16 05:59 04/29/16 11:30 Insulin Detemir (Levemir) 30 units Q12H SUBQ 04/29/16 06:00 05/29/16 05:59 04/29/16 06:16 Linezolid (Zyvox) 300 ml @ 300 mls/hr Q12HR IVPB 04/27/16 21:00 05/04/16 20:59 04/29/16 10:08 Morphine Sulfate (Morphine Sulfate) 2 mg Q4H PRN IVP Moderate Pain (Pain Scale 4-6) 04/27/16 21:00 05/04/16 20:59 Nitroglycerin (Ntg) 0.4 mg Every 5 Minutes PRN SL Prn Chest Pain 04/27/16 19:45 05/27/16 19:44 Olanzapine (ZyPREXA) 7.5 mg DAILY ORAL 04/28/16 09:00 05/28/16 08:59 04/29/16 11:00 Ondansetron HCl (Zofran) 4 mg Q6H PRN IVP Nausea & Vomiting 04/27/16 21:00 05/27/16 20:59 Pantoprazole (Protonix) 40 mg Q12HR IV 04/27/16 21:00 05/27/16 20:59 04/29/16 10:09 Polyethylene Glycol (Miralax) 17 gm DAILYPRN PRN ORAL Constipation 04/27/16 22:45 05/27/16 22:44 Temazepam (Restoril) 15 mg HSPRN PRN ORAL Insomnia 04/27/16 21:00 05/04/16 20:59 Yonis ([facility])Vidhi NP Apr 29, 2016 12:32
--- NOTE | 2016-04-29 16:38 | Infectious Diseases Prog Note ---
Assessment/Plan Problems: (1) Sepsis Assessment & Plan: due to UTI, and foot infection, continue zyvox and cefepime empirically, blood culture grew gram positive cocci in one bottle, most likely contamination. urine culture grew VRE and small colony of MDR pseudomonas aeruginosa, no need to treat it (2) Gangrene of foot Assessment & Plan: recommend station agent eval, MRI of the foot ruled out osteomyelitis, continue wide spectrum antibiotics and local wound care (3) Open wnd foot-complicated Assessment & Plan: with escars, appreciate station agent input , had significant vascular disease , recommend vascular eval , continue local wound care and off loading (4) DM (diabetes mellitus) Assessment & Plan: recommend tight glycemic control to keep blood glucose between 80-120 (5) UTI (urinary tract infection) Assessment & Plan: with VRE ready on zyvox, and small colony of MDR pseudomonas aeruginosa which doesn't need to be treated per se (6) Acute hypernatremia Assessment & Plan: due to dehydration, continue IVF, monitor sodium level, and electrolytes (7) Colonization with VRE (vancomycin-resistant enterococcus) Assessment & Plan: keep in contact isolation Subjective ROS Limited/Unobtainable: Yes Allergies: Coded Allergies: No Known Allergies (Unverified , 01/06/14) Subjective she is demented, resting in bed, not in distress, afebrile. Objective Vital Signs Last 24 Hour Vital Signs Date Time Temp Pulse Resp B/P Pulse Ox O2 Delivery O2 Flow Rate FiO2 04/29/16 12:00 97.3 98 17 121/68 Room Air 04/29/16 11:37 126/71 04/29/16 10:09 106 126/71 04/29/16 08:00 98.2 86 18 126/71 Room Air 04/29/16 08:00 106 18 Room Air 04/29/16 05:36 133/53 04/29/16 04:00 98.1 83 20 117/52 96 Room Air 04/29/16 00:00 98.1 87 20 133/52 97 Room Air 04/29/16 00:00 125/59 04/28/16 20:00 97.7 87 18 129/59 93 Room Air 04/28/16 19:30 78 18 Room Air 04/28/16 17:05 117/82 Height (Feet): 5 Height (Inches): 3.00 Weight (Pounds): 136 General Appearance: WD/WN, no acute distress HEENT: normocephalic, atraumatic, anicteric, mucous membranes moist Respiratory/Chest: chest wall non-tender, lungs clear, normal breath sounds, no respiratory distress, no accessory muscle use Cardiovascular: normal peripheral pulses, normal rate, regular rhythm, no gallop/murmur, no JVD Abdomen: normal bowel sounds, soft, non tender, no organomegaly, non distended , no mass, no scars Extremities: no cyanosis, no clubbing, other - wounds with gangren Skin: no rash, no lesions Laboratory Tests Test 04/28/16 16:50 04/29/16 04:30 Glucose Level 686 mg/dL (74-106) #*H 432 mg/dL (74-106) #H White Blood Count 18.8 K/UL (4.8-10.8) H Red Blood Count 2.46 M/UL (4.20-5.40) L Hemoglobin 7.6 G/DL (12.0-16.0) L Hematocrit 23.6 % (37.0-47.0) L Mean Corpuscular Volume 96 FL (80-99) Mean Corpuscular Hemoglobin 31.1 PG (27.0-31.0) H Mean Corpuscular Hemoglobin Concent 32.3 G/DL (32.0-36.0) Red Cell Distribution Width 13.7 % (11.6-14.8) Platelet Count 228 K/UL (150-450) Mean Platelet Volume 7.6 FL (6.5-10.1) Neutrophils (%) (Auto) % (45.0-75.0) Lymphocytes (%) (Auto) % (20.0-45.0) Monocytes (%) (Auto) % (1.0-10.0) Eosinophils (%) (Auto) % (0.0-3.0) Basophils (%) (Auto) % (0.0-2.0) Differential Total Cells Counted 100 Neutrophils % (Manual) 72 % (45-75) Lymphocytes % (Manual) 22 % (20-45) Monocytes % (Manual) 5 % (1-10) Eosinophils % (Manual) 1 % (0-3) Basophils % (Manual) 0 % (0-2) Band Neutrophils 0 % (0-8) Platelet Estimate Adequate Platelet Morphology Normal Hypochromasia 1+ Sodium Level 144 mEQ/L (135-145) Potassium Level 3.6 mEQ/L (3.4-4.9) Chloride Level 101 mEQ/L (98-107) Carbon Dioxide Level 25 mEQ/L (20-30) Anion Gap 18 (5-15) H Blood Urea Nitrogen 111 mg/dL (7-23) H Creatinine 3.0 mg/dL (0.5-0.9) H Estimat Glomerular Filtration Rate mL/min (>60) Calcium Level 8.5 mg/dL (8.6-10.2) L Iron Level 54 ug/dL (37-145) Total Iron Binding Capacity 170 ug/dL (250-400) L Percent Iron Saturation 32 % (15-50) Unsaturated Iron Binding 116 ug/dL (112-346) Ferritin 296 ng/mL (13-150) H Vitamin B12 Level 1325 pg/mL (211-946) H Folate Pending Current Medications Medications (Trade) Dose Ordered Sig/Issa Route PRN Reason Start Time Stop Time Status Last Admin Dose Admin Acetaminophen (Tylenol) 650 mg Q4H PRN ORAL fever 04/27/16 21:00 05/27/16 20:59 Albuterol/ Ipratropium (DuoNeb 0.5-3(2.5)mg/3ml) 3 ml Q4H PRN HHN Shortness of Breath 04/27/16 21:00 05/02/16 20:59 Amlodipine Besylate (Norvasc) 10 mg DAILY ORAL 04/28/16 09:00 05/28/16 08:59 04/29/16 10:09 Cefepime HCl 1 gm/ Dextrose 55 ml @ 110 mls/hr Q24H IVPB 04/28/16 03:00 05/03/16 02:59 04/29/16 02:22 Clonidine HCl (Catapres) 0.1 mg Q6HR GT 04/28/16 00:00 05/28/16 00:00 04/29/16 11:37 Dextrose (Dextrose 50%) STAT PRN IV Hypoglycemia 04/27/16 21:00 05/27/16 20:59 Fluconazole/ Sodium Chloride (Diflucan 200mg/ 100ml Premix) 100 ml @ 100 mls/hr Q24H IV 04/29/16 13:00 05/06/16 12:59 04/29/16 13:42 Heparin Sodium (Porcine) (Heparin 5000 units/ml) 5,000 units EVERY 12 HOURS SUBQ 04/27/16 21:00 05/27/16 20:59 04/28/16 22:08 Insulin Aspart (NovoLOG) BEFORE MEALS AND HS SUBQ 04/27/16 22:00 05/27/16 21:59 04/29/16 11:29 Insulin Aspart 5 units 5 units Q6HR SUBQ 04/29/16 06:00 05/29/16 05:59 04/29/16 11:30 Insulin Detemir (Levemir) 30 units Q12H SUBQ 04/29/16 06:00 05/29/16 05:59 04/29/16 06:16 Linezolid (Zyvox) 300 ml @ 300 mls/hr Q12HR IVPB 04/27/16 21:00 05/04/16 20:59 04/29/16 10:08 Morphine Sulfate (Morphine Sulfate) 2 mg Q4H PRN IVP Moderate Pain (Pain Scale 4-6) 04/27/16 21:00 05/04/16 20:59 Nitroglycerin (Ntg) 0.4 mg Every 5 Minutes PRN SL Prn Chest Pain 04/27/16 19:45 05/27/16 19:44 Olanzapine (ZyPREXA) 7.5 mg DAILY ORAL 04/28/16 09:00 05/28/16 08:59 04/29/16 11:00 Ondansetron HCl (Zofran) 4 mg Q6H PRN IVP Nausea & Vomiting 04/27/16 21:00 05/27/16 20:59 Pantoprazole (Protonix) 40 mg Q12HR IV 04/27/16 21:00 05/27/16 20:59 04/29/16 10:09 Polyethylene Glycol (Miralax) 17 gm DAILYPRN PRN ORAL Constipation 04/27/16 22:45 05/27/16 22:44 Temazepam (Restoril) 15 mg HSPRN PRN ORAL Insomnia 04/27/16 21:00 05/04/16 20:59 Virginia Matamoros M.D. Apr 29, 2016 16:38
--- NOTE | 2016-04-29 20:10 | Nephrology Progress Note ---
Assessment/Plan Assessment 1. Hypernatremia resolved 2. End-stage renal disease based on the patient evaluation. 3. Hypercalcemia. 4. Severe dehydration. 5. Elevated white blood cell count and sepsis. Plan plan to replace dialysis cath free water via g tube continue epogen iv antibiotic check phos check pre albumin Subjective ROS Limited/Unobtainable: Yes Constitutional: Reports: no symptoms HEENT: Reports: no symptoms Genitourinary: Reports: no symptoms Neurologic/Psychiatric: Reports: no symptoms Subjective had dialysis today but unfortunately cath didn't work well spoke to vascular need new cath Objective Objective Last 24 Hour Vital Signs Date Time Temp Pulse Resp B/P Pulse Ox O2 Delivery O2 Flow Rate FiO2 04/29/16 17:32 130/44 04/29/16 16:00 97.0 18 130/44 99 Room Air 04/29/16 12:00 97.3 98 17 121/68 Room Air 04/29/16 11:37 126/71 04/29/16 10:09 106 126/71 04/29/16 08:00 98.2 86 18 126/71 Room Air 04/29/16 08:00 106 18 Room Air 04/29/16 05:36 133/53 04/29/16 04:00 98.1 83 20 117/52 96 Room Air 04/29/16 00:00 98.1 87 20 133/52 97 Room Air 04/29/16 00:00 125/59 Intake and Output 04/28/16 04/29/16 19:00 07:00 Intake Total 578 ml 430 ml Output Total 712 ml 500 ml Balance -134 ml -70 ml Free Water 230 ml Tube Feeding 340 ml 200 ml Hemodialysis 238 ml Output Urine Total 450 ml 500 ml Hemodialysis UF 262 ml # Bowel Movements 1 1 Laboratory Tests 04/29/16 04:30: White Blood Count 18.8H, Red Blood Count 2.46L, Hemoglobin 7.6L, Hematocrit 23.6L, Mean Corpuscular Volume 96, Mean Corpuscular Hemoglobin 31.1H, Mean Corpuscular Hemoglobin Concent 32.3, Red Cell Distribution Width 13.7, Platelet Count 228, Mean Platelet Volume 7.6, Neutrophils (%) (Auto) , Lymphocytes (%) ( Auto) , Monocytes (%) (Auto) , Eosinophils (%) (Auto) , Basophils (%) (Auto) , Differential Total Cells Counted 100, Neutrophils % (Manual) 72, Lymphocytes % ( Manual) 22, Monocytes % (Manual) 5, Eosinophils % (Manual) 1, Basophils % ( Manual) 0, Band Neutrophils 0, Platelet Estimate Adequate, Platelet Morphology Normal, Hypochromasia 1+, Sodium Level 144, Potassium Level 3.6, Chloride Level 101, Carbon Dioxide Level 25, Anion Gap 18H, Blood Urea Nitrogen 111H, Creatinine 3.0H, Estimat Glomerular Filtration Rate , Glucose Level 432#H, Calcium Level 8.5L, Iron Level 54, Total Iron Binding Capacity 170L, Percent Iron Saturation 32, Unsaturated Iron Binding 116, Ferritin 296H, Vitamin B12 Level 1325H, Folate [Pending] Height (Feet): 5 Height (Inches): 3.00 Weight (Pounds): 136 Objective HEENT/NECK: Head and neck: No JVP. No LAD. No thyromegaly. Extraocular movement intact. Pupils are reactive to light and accommodation. LUNGS: Decreased breathing sound on the both sides. CARDIAC: Regular rate and rhythm. S1 and S2. No murmur. No rub. ABDOMEN: Soft, nontender, and nondistended. EXTREMITIES: Left lower extremity is on cast. DAINA AVELAR Apr 29, 2016 20:10
[2016-04-30] VITALS (9 sets, daily range): BP systolic 107–139; BP diastolic 34–56
[2016-04-30] MEDS: Cefepime HCl 1 GM in D5W 55 ML IVPB SCH (02:56)
--- NOTE | 2016-04-30 04:37 | Progress Note ---
DATE: 04/28/2016 The patient is seen and assessed at bedside. Confused and disorganized. Mood is labile. I am going to continue on Zyprexa 7.5 mg daily to prevent any further decline in her cognition and to treat psychosis. Chart reviewed and discussed with staff. Yadira Noland M.D. DR: SPEEDY JOB#: [id number] CC:
[2016-04-30] MEDS: Levemir Flexpen SUBQ SCH ×2 (05:41→17:44)
[2016-04-30] MEDS: NovoLOG Insulin Flexpen SUBQ SCH ×8 (05:42→23:41)
--- NOTE | 2016-04-30 06:07 | Progress Note ---
DATE: 04/29/2016 The patient has . Continue treatment with Zyprexa 7.5 mg daily to present depression and anxiety chart is reviewed and discussed with staff. Supportive therapy provided. Encouraged her to interact appropriately with staff. Yadira Noland M.D. DR: Magaly JOB#: [id number] CC:
[2016-04-30 07:06] LABS: MEAN CORPUSCULAR HEMOGLOBIN 32.2 PG (27.0-31.0); MEAN CORPUSCULAR HGB CONC 34.2 G/DL (32.0-36.0); MEAN CORPUSCULAR VOLUME 94 FL (80-99); PLATELET COUNT 210 K/UL (150-450); RED BLOOD COUNT 3.06 M/UL (4.20-5.40); RED CELL DISTRIBUTION WIDTH 13.3 % (11.6-14.8)
[2016-04-30 07:16] LABS: WHITE BLOOD COUNT 22.4 K/UL (4.8-10.8)
[2016-04-30 07:26] LABS: ANION GAP 22 (5-15); CALCIUM 8.5 mg/dL (8.6-10.2); CARBON DIOXIDE 23 mEQ/L (20-30); CHLORIDE 104 mEQ/L (98-107); CREATININE 2.8 mg/dL (0.5-0.9); HEMOLYSIS 12; POTASSIUM 3.4 mEQ/L (3.4-4.9); SODIUM 149 mEQ/L (135-145)
[2016-04-30 08:57] LABS: BAND NEUTROPHILS % (MANUAL) 0 % (0-8); BASOPHILS % (MANUAL) 0 % (0-2); EOSINOPHILS % (MANUAL) 1 % (0-3); HYPOCHROMASIA 1+; LYMPHOCYTES % (MANUAL) 24 % (20-45); NEUTROPHILS % (MANUAL) 66 % (45-75); PLATELET ESTIMATE ADEQUATE; PLATELET MORPHOLOGY NORMAL; TOTAL CELLS COUNTED 100
[2016-04-30] MEDS: Heparin 5000 units/ml inj SUBQ SCH ×2 (09:00→22:34)
--- NOTE | 2016-04-30 09:14 | Nephrology Progress Note ---
Assessment/Plan Assessment 1. Hypernatremia 2. End-stage renal disease based on the patient evaluation. 3. Hypercalcemia. 4. Severe dehydration. 5. Elevated white blood cell count and sepsis. Plan plan to replace dialysis cath free water via g tube continue epogen iv antibiotic check phos check pre albumin Subjective Constitutional: Reports: no symptoms HEENT: Reports: no symptoms Genitourinary: Reports: no symptoms Neurologic/Psychiatric: Reports: no symptoms Subjective more awake today dialysis cath will be change by dr das Objective Objective Last 24 Hour Vital Signs Date Time Temp Pulse Resp B/P Pulse Ox O2 Delivery O2 Flow Rate FiO2 04/30/16 08:55 98.2 82 19 109/34 98 Room Air 04/30/16 05:43 121/40 04/30/16 04:00 98.2 81 18 121/40 96 Room Air 04/30/16 00:00 127/48 04/29/16 23:55 97.9 74 18 127/48 98 Room Air 04/29/16 21:52 73 18 Room Air 21 04/29/16 17:32 130/44 04/29/16 16:00 97.0 18 130/44 99 Room Air 04/29/16 12:00 97.3 98 17 121/68 Room Air 04/29/16 11:37 126/71 04/29/16 10:09 106 126/71 Intake and Output 04/29/16 04/30/16 19:00 07:00 Intake Total 480 ml 995 ml Output Total 300 ml 550 ml Balance 180 ml 445 ml Free Water 460 ml IV Total 55 ml Tube Feeding 480 ml 480 ml Output Urine Total 300 ml 550 ml # Bowel Movements 1 Laboratory Tests 04/30/16 04:50: White Blood Count 22.4*H, Red Blood Count 3.06L, Hemoglobin 9.9#L, Hematocrit 28.9L, Mean Corpuscular Volume 94, Mean Corpuscular Hemoglobin 32.2H, Mean Corpuscular Hemoglobin Concent 34.2, Red Cell Distribution Width 13.3, Platelet Count 210, Mean Platelet Volume 8.0, Neutrophils (%) (Auto) , Lymphocytes (%) ( Auto) , Monocytes (%) (Auto) , Eosinophils (%) (Auto) , Basophils (%) (Auto) , Differential Total Cells Counted 100, Neutrophils % (Manual) 66, Lymphocytes % ( Manual) 24, Monocytes % (Manual) 9, Eosinophils % (Manual) 1, Basophils % ( Manual) 0, Band Neutrophils 0, Platelet Estimate Adequate, Platelet Morphology Normal, Hypochromasia 1+, Sodium Level 149H, Potassium Level 3.4, Chloride Level 104, Carbon Dioxide Level 23, Anion Gap 22H, Blood Urea Nitrogen 112H, Creatinine 2.8H, Estimat Glomerular Filtration Rate , Glucose Level 205#H, Calcium Level 8.5L, Phosphorus Level 4.7 Height (Feet): 5 Height (Inches): 3.00 Weight (Pounds): 135 Objective HEENT/NECK: Head and neck: No JVP. No LAD. No thyromegaly. Extraocular movement intact. Pupils are reactive to light and accommodation. LUNGS: Decreased breathing sound on the both sides. CARDIAC: Regular rate and rhythm. S1 and S2. No murmur. No rub. ABDOMEN: Soft, nontender, and nondistended. EXTREMITIES: Left lower extremity is on cast. DAINA AVELAR Apr 30, 2016 09:14
[2016-04-30] MEDS ORDERED: Amikacin Rx to dose MISC PRN (09:15)
[2016-04-30] MEDS: OLANZapine 2.5mg tab ORAL SCH (09:54)
[2016-04-30] MEDS: Pantoprazole Inj IV SCH ×2 (09:55→22:34)
[2016-04-30] MEDS ORDERED: Amikacin 400 MG in NS 110 ML IV ONE (11:00)
--- NOTE | 2016-04-30 12:37 | Consultation ---
DATE OF CONSULTATION: HISTORY OF PRESENT ILLNESS: This is a 80-year-old female patient with sepsis. This patient is confused and disorganized. She has sepsis and chronic renal failure. This patient is confused and disorganized thought process. She came into the hospital from [facility] with weakness, nausea, sepsis, chronic renal failure, and she is lethargic as well. MEDICAL HISTORY: She has a history of chronic renal failure, hypertension, diabetes, DVT, sepsis. SOCIAL HISTORY: Financially supported by [employer] and Medicare. SUBSTANCE ABUSE HISTORY: Denies smoking or alcohol abuse. ALLERGIES: No known drug allergies. PSYCHIATRIC DIAGNOSIS: Paranoid schizophrenia, rule out dementia with . She is currently on Zyprexa 7.5 mg daily. MENTAL STATUS EXAMINATION: This is a female patient 80 years old with psychomotor retardation. Mood is depressed. Affect guarded and restricted. Thought process is disorganized and illogical. Denies any current suicidal or homicidal thoughts. Insight and judgment is poor. DIAGNOSIS: Paranoid schizophrenia with acute exacerbation. PLAN: Plan for this patient treated with Zyprexa 7.5 mg daily to prevent any further decline in her cognition . Chart was reviewed and discussed with . Continue to follow, treated with Zyprexa 7.5 mg daily. Chart was reviewed and discussed with staff and seen and assessed at bedside. Yadira Noland M.D. DR: IGNACIA JOB#: [id number] CC:
--- NOTE | 2016-04-30 13:45 | General Progress Note ---
Assessment/Plan Problem List: (1) Morbid obesity ICD Codes: E66.01 - Morbid obesity SNOMED: 693004112 (2) UTI (urinary tract infection) ICD Codes: N39.0 - Urinary tract infection, site not specified SNOMED: 72120811 (3) Sepsis ICD Codes: A41.9 - Sepsis, unspecified organism SNOMED: 61786507 (4) Open wnd foot-complicated ICD Codes: S91.309A - Unspecified open wound, unspecified foot, initial encounter SNOMED: 378392417 (5) DM (diabetes mellitus) ICD Codes: E11.9 - DM (diabetes mellitus) SNOMED: 64960091 (6) ESRD (end stage renal disease) ICD Codes: N18.6 - End stage renal disease SNOMED: 56325605 Status: stable, progressing, tolerating diet Assessment/Plan ot pt diet wound care abd vasc pod eval dialysis cbc bmp am possible leg sx Subjective Constitutional: Reports: weakness Allergies: Coded Allergies: No Known Allergies (Unverified , 01/06/14) All Systems: reviewed and negative except above Subjective calm in bed Objective Last 24 Hour Vital Signs Date Time Temp Pulse Resp B/P Pulse Ox O2 Delivery O2 Flow Rate FiO2 04/30/16 12:52 98.0 79 19 107/35 97 Room Air 04/30/16 11:08 109/34 04/30/16 09:00 82 109/34 04/30/16 08:55 98.2 82 19 109/34 98 Room Air 04/30/16 07:58 80 18 Room Air 21 04/30/16 05:43 121/40 04/30/16 04:00 98.2 81 18 121/40 96 Room Air 04/30/16 00:00 127/48 04/29/16 23:55 97.9 74 18 127/48 98 Room Air 04/29/16 21:52 73 18 Room Air 21 04/29/16 17:32 130/44 04/29/16 16:00 97.0 18 130/44 99 Room Air Intake and Output 04/29/16 04/30/16 19:00 07:00 Intake Total 480 ml 995 ml Output Total 300 ml 550 ml Balance 180 ml 445 ml Free Water 460 ml IV Total 55 ml Tube Feeding 480 ml 480 ml Output Urine Total 300 ml 550 ml # Bowel Movements 1 Laboratory Tests 04/30/16 04:50: White Blood Count 22.4*H, Red Blood Count 3.06L, Hemoglobin 9.9#L, Hematocrit 28.9L, Mean Corpuscular Volume 94, Mean Corpuscular Hemoglobin 32.2H, Mean Corpuscular Hemoglobin Concent 34.2, Red Cell Distribution Width 13.3, Platelet Count 210, Mean Platelet Volume 8.0, Neutrophils (%) (Auto) , Lymphocytes (%) ( Auto) , Monocytes (%) (Auto) , Eosinophils (%) (Auto) , Basophils (%) (Auto) , Differential Total Cells Counted 100, Neutrophils % (Manual) 66, Lymphocytes % ( Manual) 24, Monocytes % (Manual) 9, Eosinophils % (Manual) 1, Basophils % ( Manual) 0, Band Neutrophils 0, Platelet Estimate Adequate, Platelet Morphology Normal, Hypochromasia 1+, Sodium Level 149H, Potassium Level 3.4, Chloride Level 104, Carbon Dioxide Level 23, Anion Gap 22H, Blood Urea Nitrogen 112H, Creatinine 2.8H, Estimat Glomerular Filtration Rate , Glucose Level 205#H, Calcium Level 8.5L, Phosphorus Level 4.7 Height (Feet): 5 Height (Inches): 3.00 Weight (Pounds): 135 General Appearance: lethargic, confused EENT: normal ENT inspection Neck: normal alignment Cardiovascular: normal peripheral pulses, normal rate, regular rhythm Respiratory/Chest: chest wall non-tender, lungs clear, normal breath sounds Abdomen: normal bowel sounds, non tender, soft Extremities: normal inspection Edema: no edema noted Arm (L), no edema noted Arm (R), no edema noted Leg (L), no edema noted Leg (R), no edema noted Pedal (L), no edema noted Pedal (R), no edema noted Generalized Neurologic: motor weakness Skin: normal pigmentation, warm/dry FRANDY SWIFT Apr 30, 2016 13:45
--- NOTE | 2016-04-30 14:07 | Geriatric Psychiatric Prog Not ---
DATE: 04/27/2016 SUBJECTIVE: Continue her on Zyprexa 7.5 mg daily to treat her depression and anxiety. Chart reviewed and discussed with staff. Seen and assessed at bedside. Yadira Noland M.D. DR: JAIRO JOB#: [id number] CC:
[2016-04-30 14:21] LABS: PROTHROMBIN TIME 9.9 SEC (9.30-11.50)
[2016-04-30] MEDS ORDERED: Heparin 2000 units/Ns 1000ml INJ ONE (14:30)
--- NOTE | 2016-04-30 14:45 | GI Initial Consult Note ---
History of Present Illness General Date patient seen: Apr 30, 2016 Time patient seen: 11:00 Reason for Hospitalization: Abnormal Labs Referring physician: Dr. Lyn Reason for Consultation: ANEMIA Present Illness HPI The patient is sent in for abnormal labs. Apparently she's not had dialysis for over a week. G tube. The patient is post stroke and cannot communicate. She was discharged in February with these diagnoses: 1. Acute respiratory failure requiring bilevel positive airway pressure, resolved. 2. Acute on chronic renal failure likely due to diabetic and hypertensive kidney disease. 3. Congestive heart failure. 4. Diastolic dysfunction in exacerbation. 5. Chronic obstructive pulmonary disease exacerbation. 6. Hypertension. 7. Morbid obesity. 8. Acute deep venous thrombosis. 9. Non-ST elevated myocardial infarction. 10. Atrial fibrillation with rapid ventricular response. 11. Sepsis with Escherichia coli bacteremia. 12. Urinary tract infection with Escherichia coli. 13. Diabetes mellitus, out of control with diabetic nephropathy. 14. Sacral stage III pressure ulcer, present on admission. GI CONSULT: HPI limited, pt non verbal unable to provide any history. GI consulted for anemia evaluation Hgb 9.9 s/p blood transfusion. Pt seen on floor with NAD and GT dependent. Site C/D/I. KUB shows fecal impaction in the sigmoid colon and rectum. Pt also p/w with leukocytosis. Procedure: XRAY Abdomen 1v Indication: Abdominal pain Impression: Large amount of stool in the sigmoid colon and rectum. Clinical correlation recommended for fecal impaction. IVC filter at the L2/L3 level. Gastrostomy. Other findings as above. Home Meds Active Scripts Clonidine HCl (Clonidine HCl) 0.1 Mg Tab, 0.1 MG GT Q6HR, #30 TAB Prov:Somers (Vidhi Roberts [employer] 01/11/14 Reported Medications Ceftriaxone Sodium (CEFTRIAXONE) 2 Gm Vial, 2 GM IVPB DAILY for 14 Days, VIAL 02/15/16 Temazepam* (RESTORIL*) 15 Mg Capsule, 15 MG ORAL BEDTIME for Insomnia, CAP 02/15/16 Saline (Sodium Chloride) 2.5 Ml Syringe, 10 ML IVF Q8HR, SYR 02/15/16 Polyethylene Glycol 3350* (MIRALAX*) 17 Gm Powd.pack, 17 GM ORAL DAILY Y for Constipation, PACKET 02/15/16 Pantoprazole* (PANTOPRAZOLE*) 40 Mg Tablet., 40 MG ORAL EVERY 12 HOURS, TAB 02/15/16 Ondansetron* (ZOFRAN*) 4 Mg/2 Ml Vial, 4 MG IV Q6H Y for Nausea & Vomiting, VIAL 02/15/16 Metoprolol Tartrate* (METOPROLOL TARTRATE*) 25 Mg Tablet, 25 MG ORAL EVERY 12 HOURS, TAB 02/15/16 Magnesium Oxide (MAG-OXIDE) 400 Mg Tablet, 400 MG PO BID, TAB 02/15/16 Lorazepam* (ATIVAN*) 0.5 Mg Tablet, 0.5 MG ORAL Q6HR, TAB 02/15/16 Ipratropium/Albuterol Sulfate (DuoNeb 0.5-3(2.5)mg/3ml) 3 Ml Ampul.neb, 3 ML HHN Q4HR for Shortness of Breath, EA 02/15/16 Furosemide (FUROSEMIDE) 10 Mg/1 Ml Vial, 40 MG IJ DAILY, VIAL 02/15/16 Dextrose 50 % In Water (DEXTROSE 50%-WATER VIAL) 50 Ml Vial, 50 ML IV NEEDED for hypoglycemia, VIAL 02/15/16 Ceftriaxone Sod (Ceftriaxone) 2 Gm Vial, 2 GM IM DAILY, VIAL 02/15/16 Ceftriaxone Na/Dextrose,Iso (CEFTRIAXONE 2 GM PIGGYBACK) 2 Gm/50 Ml Froz.piggy, 2 GM IV DAILY, BAG 02/15/16 Ceftriaxone Sodium (CEFTRIAXONE) 2 Gm Vial.port, 2 GM IV DAILY, VIAL 02/15/16 Atorvastatin Calcium* (ATORVASTATIN CALCIUM*) 40 Mg Tablet, 40 MG ORAL BEDTIME, TAB 02/15/16 Insulin Detemir (LEVEMIR FLEXPEN) 100 Unit/1 Ml Insuln.pen, 10 SUBQ EVERY 12 HOURS, #300 UNITS 0 Refills 02/15/16 Insulin Detemir (LEVEMIR FLEXPEN) 100 Unit/1 Ml Insuln.pen, 10 SUBQ, #300 UNITS 0 Refills 02/15/16 Clonidine Hcl (CLONIDINE HCL) 0.1 Mg Tablet, 0.1 MG PO Q4HR Y for For High Blood Pressure, TAB 02/15/16 Amlodipine Besylate (Norvasc) 10 Mg Tablet, 10 MG ORAL DAILY, TAB 02/15/16 Acetaminophen (Tylenol) 325 Mg Tablet, 650 MG ORAL Q4HR Y for Prn Pain/Headache/ Temp > 101, #30 TAB 0 Refills 02/15/16 Acetaminophen* (TYLENOL EXTRA STRENGTH*) 500 Mg Tablet, 500 MG ORAL Q6H Y for Mild Pain/Temp > 100.5, TAB 0 Refills 02/10/16 Insulin Lispro (HUMALOG) 100 Unit/1 Ml Cartridge, 0 SUBQ BEFORE BREAKFAST, #1 UNITS 0 Refills 02/10/16 Insulin Aspart* (NOVOLOG*) 100 Unit/1 Ml Insuln.pen, 0 SUBQ AC, #1 EA 0 Refills 02/10/16 Dextromethorphan Hbr/Quinidine (NUEDEXTA 20-10 MG CAPSULE) 1 Each Capsule, 1 EACH PO BID, CAP 02/10/16 Cran/Vitc/Mannose/Inulin/Brom (UTI-STAT LIQUID) 3,875 Mg/30 Ml Liquid, 3875 MG PO BID, ML 02/10/16 Cranberry Extract (Cranberry) 500 Mg Tablet, 450 MG PO DAILY, TAB 02/10/16 Omeprazole Magnesium (PRILOSEC OTC) 20 Mg Tablet.dr, 20 MG ORAL DAILY, TAB 02/10/16 Olanzapine* (ZYPREXA*) 5 Mg Tablet, 7.5 MG ORAL HS, TAB 01/31/16 Insulin Detemir (LEVEMIR FLEXPEN) 100 Unit/1 Ml Insuln.pen, 20 UNITS SUBQ QHS, # 300 UNITS 0 Refills 01/31/16 Insulin Detemir (LEVEMIR FLEXPEN) 100 Unit/1 Ml Insuln.pen, 0 SUBQ, #300 UNITS 0 Refills 01/27/16 Heparin Sod (Porcine) (HEPARIN SODIUM*) 5 000/1 Ml Vial, 5000 UNITS SUBQ EVERY 12 HOURS, VIAL 01/27/16 Amlodipine Besylate (Norvasc) 10 Mg Tab, 10 MG ORAL DAILY for For High Blood Pressure, TAB 01/06/14 Discontinued Reported Medications Ziprasidone Hcl* (GEODON*) 20 Mg Capsule, 20 MG ORAL TWICE A DAY, #60 CAP 0 Refills 02/15/16 Med list reviewed/reconciled: Yes Allergies: Coded Allergies: No Known Allergies (Unverified , 01/06/14) Patient History Limited by: medical condition History Provided By: Medical Record PMH Narrative Limited by: medical condition Past Medical History: see triage record Past Surgical History: other - vascath Social History Narrative SNF Reviewed Nursing Documentation: PMH: Agreed, PSxH: Agreed Nursing Documentation-PMH Hx Cardiac Problems: Yes - anemia, hyperlipidemia, osteoarthritis Hx Hypertension: Yes Hx COPD: Yes Hx Diabetes: Yes Hx Cancer: No Hx Gastrointestinal Problems: Yes - severe protien calorie malnutrition Hx Dialysis: No - ckd Hx Neurological Problems: Yes - Dementia, Encephalopathy Hx Dementia: No Hx Dizziness: Yes Hx Syncope: Yes Review of Systems All Other Systems: limited Physical Exam Vital Signs Date Time Temp Pulse Resp B/P Pulse Ox O2 Delivery O2 Flow Rate FiO2 04/26/16 08:00 78 04/26/16 08:11 97.7 18 134/60 98 Room Air 04/26/16 09:45 21 Sp02 EP Interpretation: reviewed Labs Laboratory Tests Test 04/30/16 04:50 04/30/16 13:50 White Blood Count 22.4 K/UL (4.8-10.8) *H Red Blood Count 3.06 M/UL (4.20-5.40) L Hemoglobin 9.9 G/DL (12.0-16.0) #L Hematocrit 28.9 % (37.0-47.0) L Mean Corpuscular Volume 94 FL (80-99) Mean Corpuscular Hemoglobin 32.2 PG (27.0-31.0) H Mean Corpuscular Hemoglobin Concent 34.2 G/DL (32.0-36.0) Red Cell Distribution Width 13.3 % (11.6-14.8) Platelet Count 210 K/UL (150-450) Mean Platelet Volume 8.0 FL (6.5-10.1) Neutrophils (%) (Auto) % (45.0-75.0) Lymphocytes (%) (Auto) % (20.0-45.0) Monocytes (%) (Auto) % (1.0-10.0) Eosinophils (%) (Auto) % (0.0-3.0) Basophils (%) (Auto) % (0.0-2.0) Differential Total Cells Counted 100 Neutrophils % (Manual) 66 % (45-75) Lymphocytes % (Manual) 24 % (20-45) Monocytes % (Manual) 9 % (1-10) Eosinophils % (Manual) 1 % (0-3) Basophils % (Manual) 0 % (0-2) Band Neutrophils 0 % (0-8) Platelet Estimate Adequate Platelet Morphology Normal Hypochromasia 1+ Sodium Level 149 mEQ/L (135-145) H Potassium Level 3.4 mEQ/L (3.4-4.9) Chloride Level 104 mEQ/L (98-107) Carbon Dioxide Level 23 mEQ/L (20-30) Anion Gap 22 (5-15) H Blood Urea Nitrogen 112 mg/dL (7-23) H Creatinine 2.8 mg/dL (0.5-0.9) H Estimat Glomerular Filtration Rate mL/min (>60) Glucose Level 205 mg/dL (74-106) #H Calcium Level 8.5 mg/dL (8.6-10.2) L Phosphorus Level 4.7 mg/dL (2.5-4.8) Prothrombin Time 9.9 SEC (9.30-11.50) Prothromb Time International Ratio 1.0 (0.9-1.1) General Appearance: no apparent distress Head: normocephalic Neck: supple Respiratory: no respiratory distress Cardiovascular: normal rate Gastrointestinal: soft, normal bowel sounds, gt - c/d/i Rectal: deferred Neurologic: alert Skin: normal color, no rash, warm/dry Lymphatic: no adenopathy Current Medications Current Medications Medications (Trade) Dose Ordered Sig/Issa Route PRN Reason Start Time Stop Time Status Last Admin Dose Admin Acetaminophen (Tylenol) 650 mg Q4H PRN ORAL fever 04/27/16 21:00 05/27/16 20:59 Albuterol/ Ipratropium (DuoNeb 0.5-3(2.5)mg/3ml) 3 ml Q4H PRN HHN Shortness of Breath 04/27/16 21:00 05/02/16 20:59 Amikacin Protocol (Amikacin pharmacy to dose) 1 ea DAILY PRN MISC Per rx protocol 04/30/16 09:15 05/30/16 09:14 Amlodipine Besylate (Norvasc) 10 mg DAILY ORAL 04/28/16 09:00 05/28/16 08:59 04/29/16 10:09 Cefepime HCl 1 gm/ Dextrose 55 ml @ 110 mls/hr Q24H IVPB 04/28/16 03:00 05/03/16 02:59 04/30/16 02:56 Clonidine HCl (Catapres) 0.1 mg Q6HR GT 04/28/16 00:00 05/28/16 00:00 04/29/16 17:32 Dextrose (Dextrose 50%) STAT PRN IV Hypoglycemia 04/27/16 21:00 05/27/16 20:59 Fluconazole/ Sodium Chloride (Diflucan 200mg/ 100ml Premix) 100 ml @ 100 mls/hr Q24H IV 04/29/16 13:00 05/06/16 12:59 04/29/16 13:42 Heparin Sodium (Porcine) (Heparin 5000 units/ml) 5,000 units EVERY 12 HOURS SUBQ 04/27/16 21:00 05/27/16 20:59 04/29/16 22:36 Heparin Sodium (Porcine) (Heparin Sod 1000 units/ml 10ml) 2,000 unit ONCE ONCE INJ 04/30/16 14:30 04/30/16 14:31 UNV Heparin Sodium/ Sodium Chloride (Heparin 2000 units/Ns 1000ml premix) 2,000 unit ONCE ONCE INJ 04/30/16 14:30 04/30/16 14:31 UNV Insulin Aspart (NovoLOG) BEFORE MEALS AND HS SUBQ 04/27/16 22:00 05/27/16 21:59 04/30/16 11:11 Insulin Aspart 5 units 5 units Q6HR SUBQ 04/29/16 06:00 05/29/16 05:59 04/30/16 11:12 Insulin Detemir (Levemir) 30 units Q12H SUBQ 04/29/16 06:00 05/29/16 05:59 04/30/16 05:41 Lidocaine HCl (Xylocaine 1% 30ml) 30 ml ONCE ONCE INJ 04/30/16 14:30 04/30/16 14:31 UNV Linezolid (Zyvox) 300 ml @ 300 mls/hr Q12HR IVPB 04/27/16 21:00 05/04/16 20:59 04/30/16 09:57 Morphine Sulfate (Morphine Sulfate) 2 mg Q4H PRN IVP Moderate Pain (Pain Scale 4-6) 04/27/16 21:00 05/04/16 20:59 Nitroglycerin (Ntg) 0.4 mg Every 5 Minutes PRN SL Prn Chest Pain 04/27/16 19:45 05/27/16 19:44 Olanzapine (ZyPREXA) 7.5 mg DAILY ORAL 04/28/16 09:00 05/28/16 08:59 04/30/16 09:54 Ondansetron HCl (Zofran) 4 mg Q6H PRN IVP Nausea & Vomiting 04/27/16 21:00 05/27/16 20:59 Pantoprazole (Protonix) 40 mg Q12HR IV 04/27/16 21:00 05/27/16 20:59 04/30/16 09:55 Polyethylene Glycol (Miralax) 17 gm DAILYPRN PRN ORAL Constipation 04/27/16 22:45 05/27/16 22:44 Sodium Bicarbonate (Sodium Bicarbonate) 50 ml ONCE ONCE IV 04/30/16 14:30 04/30/16 14:31 UNV Temazepam (Restoril) 15 mg HSPRN PRN ORAL Insomnia 04/27/16 21:00 05/04/16 20:59 GI: Plan Problems: (1) Fecal impaction (2) Anemia (3) DM (diabetes mellitus) (4) Morbid obesity (5) ESRD (end stage renal disease) Plan defer any GI procedures given elevated white count anemia work up OB stool bowel regime + fleets x 1 monitor H&H, transfuse prn ppi abx fu labs Discussed with Dr. Rodriguez. Thank you for referring this patient, we will follow. Catherine Perdomo N.P. Apr 30, 2016 14:44
--- NOTE | 2016-04-30 14:57 | Vascular Surgery Progress Note ---
Subjective Subjective All noted No new complaints Objective Objective Last 24 Hour Vital Signs Date Time Temp Pulse Resp B/P Pulse Ox O2 Delivery O2 Flow Rate FiO2 04/30/16 12:52 98.0 79 19 107/35 97 Room Air 04/30/16 11:08 109/34 04/30/16 09:00 82 109/34 04/30/16 08:55 98.2 82 19 109/34 98 Room Air 04/30/16 07:58 80 18 Room Air 21 04/30/16 05:43 121/40 04/30/16 04:00 98.2 81 18 121/40 96 Room Air 04/30/16 00:00 127/48 04/29/16 23:55 97.9 74 18 127/48 98 Room Air 04/29/16 21:52 73 18 Room Air 21 04/29/16 17:32 130/44 04/29/16 16:00 97.0 18 130/44 99 Room Air Intake and Output 04/29/16 04/30/16 19:00 07:00 Intake Total 480 ml 995 ml Output Total 300 ml 550 ml Balance 180 ml 445 ml Free Water 460 ml IV Total 55 ml Tube Feeding 480 ml 480 ml Output Urine Total 300 ml 550 ml # Bowel Movements 1 Laboratory Tests Test 04/30/16 04:50 04/30/16 13:50 White Blood Count 22.4 K/UL (4.8-10.8) *H Red Blood Count 3.06 M/UL (4.20-5.40) L Hemoglobin 9.9 G/DL (12.0-16.0) #L Hematocrit 28.9 % (37.0-47.0) L Mean Corpuscular Volume 94 FL (80-99) Mean Corpuscular Hemoglobin 32.2 PG (27.0-31.0) H Mean Corpuscular Hemoglobin Concent 34.2 G/DL (32.0-36.0) Red Cell Distribution Width 13.3 % (11.6-14.8) Platelet Count 210 K/UL (150-450) Mean Platelet Volume 8.0 FL (6.5-10.1) Neutrophils (%) (Auto) % (45.0-75.0) Lymphocytes (%) (Auto) % (20.0-45.0) Monocytes (%) (Auto) % (1.0-10.0) Eosinophils (%) (Auto) % (0.0-3.0) Basophils (%) (Auto) % (0.0-2.0) Differential Total Cells Counted 100 Neutrophils % (Manual) 66 % (45-75) Lymphocytes % (Manual) 24 % (20-45) Monocytes % (Manual) 9 % (1-10) Eosinophils % (Manual) 1 % (0-3) Basophils % (Manual) 0 % (0-2) Band Neutrophils 0 % (0-8) Platelet Estimate Adequate Platelet Morphology Normal Hypochromasia 1+ Sodium Level 149 mEQ/L (135-145) H Potassium Level 3.4 mEQ/L (3.4-4.9) Chloride Level 104 mEQ/L (98-107) Carbon Dioxide Level 23 mEQ/L (20-30) Anion Gap 22 (5-15) H Blood Urea Nitrogen 112 mg/dL (7-23) H Creatinine 2.8 mg/dL (0.5-0.9) H Estimat Glomerular Filtration Rate mL/min (>60) Glucose Level 205 mg/dL (74-106) #H Calcium Level 8.5 mg/dL (8.6-10.2) L Phosphorus Level 4.7 mg/dL (2.5-4.8) Prothrombin Time 9.9 SEC (9.30-11.50) Prothromb Time International Ratio 1.0 (0.9-1.1) Height (Feet): 5 Height (Inches): 3.00 Weight (Pounds): 135 Objective Non verbal cvs rrr lungs cta abd soft PEG inpalce Right foot gangrene+ Absent pedal pulses Assessment/Plan Assessment Severe occlusive PAD with leg ischemia Renal heart failure Encephalopathy DVTs with IVC filter Sepsis Right chest permcath with exposed cuff awaiting catheter exchange Not salvageable right leg Plan Will need right leg above knee amputation once medically cleared and consented Permcath exchange (cuff exposed) Abx per ID d/w pts' son CRISTA WALLS Apr 30, 2016 14:57
[2016-04-30] MEDS ORDERED: Sodium Bicarbonate 8.4% 50ml Inj IV ONE (15:00)
[2016-04-30] MEDS ORDERED: Lidocaine 1% Plain 30 ml INJ ONE (15:00)
[2016-04-30] MEDS ORDERED: Heparin Sod 1000 units/ml 10ml INJ ONE (15:00)
--- NOTE | 2016-04-30 16:20 | Diagnostic Imaging Report ---
Indication: Patient requires hemodialysis. Findings: After the indications, procedure, risks, complications, and alternatives of the procedure were explained, written informed consent was obtained. The neck was prepped with alcohol. All elements of maximal sterile barrier technique were followed including usage of a cap, mask, sterile gown, sterile gloves, hand hygiene and a large sterile sheet. 1% lidocaine was used to anesthetize the skin. Sonographic evaluation was performed demonstrating a patent and compressible jugular vein. Access was obtained under real-time ultrasound guidance using an 18 gauge needle and a digital image was saved in archive. An 0.035 wire was then advanced into the vein. Needle exchanged for a dilator. A temporary hemodialysis catheter was then advanced over the wire. Wire was removed. Catheter was secured to the skin using 2-0 Prolene suture. Both ports aspirate and flush easily. Fluoroscopic imaging was utilized to negotiate the 035 wire into position. Final position of the hemodialysis catheter was confirmed by fluoroscopy. Total fluoroscopic time 1.5 minutes. The catheter is cleared for use. Impression: Successful placement of right jugular hemodialysis catheter.
[2016-04-30] MEDS ORDERED: Amikacin 250 MG in NS 55 ML IV SCH (17:00)
[2016-04-30] MEDS: Docusate 100mg tablet GT SCH (17:45)
--- NOTE | 2016-04-30 18:06 | Infectious Diseases Prog Note ---
Assessment/Plan Problems: (1) Sepsis Assessment & Plan: due to UTI, and foot infection, on zyvox and cefepime empirically, blood culture grew coag negative staph in two bottles suspect due to right foot gangren. urine culture grew VRE and MDR pseudomonas aeruginosa, will switch zyvox to daptomycin to cover for coag negative staph bacteremia and VRE UTI, and add amikacin to cover for pseudomonas in the urine, she will need source control with R BKA. will order echo to rule out vegetations, and repeat blood culture to confirm clearance (2) Gangrene of foot Assessment & Plan: was evaluated by vascular due to sever PVD, need amputation , MRI of the foot ruled out osteomyelitis, continue wide spectrum antibiotics and local wound care (3) Open wnd foot-complicated Assessment & Plan: with aleena, appreciate furniture repairer input , had significant vascular disease , was evaluated by vascular surgery and need amputation , continue local wound care and off loading (4) DM (diabetes mellitus) Assessment & Plan: recommend tight glycemic control to keep blood glucose between 80-120 (5) UTI (urinary tract infection) Assessment & Plan: with VRE on zyvox, and MDR pseudomonas aeruginosa , will add amikacin to cover for pseudomonas, and switch zyvox to daptomycin to cover for both VRE, and coag negative staph bacteremia (6) Acute hypernatremia Assessment & Plan: due to dehydration, continue IVF, monitor sodium level, and electrolytes (7) Colonization with VRE (vancomycin-resistant enterococcus) Assessment & Plan: keep in contact isolation Subjective ROS Limited/Unobtainable: Yes Allergies: Coded Allergies: No Known Allergies (Unverified , 01/06/14) Subjective she is demented, resting in bed, not in distress, afebrile. Objective Vital Signs Last 24 Hour Vital Signs Date Time Temp Pulse Resp B/P Pulse Ox O2 Delivery O2 Flow Rate FiO2 04/30/16 17:44 127/53 04/30/16 16:05 79 25 127/53 99 Room Air 04/30/16 16:00 79 16 137/52 98 Room Air 04/30/16 15:55 80 20 139/50 99 Room Air 04/30/16 15:50 80 21 131/50 99 Room Air 04/30/16 15:39 77 24 04/30/16 12:52 98.0 79 19 107/35 97 Room Air 04/30/16 11:08 109/34 04/30/16 09:00 82 109/34 04/30/16 08:55 98.2 82 19 109/34 98 Room Air 04/30/16 07:58 80 18 Room Air 21 04/30/16 05:43 121/40 04/30/16 04:00 98.2 81 18 121/40 96 Room Air 04/30/16 00:00 127/48 04/29/16 23:55 97.9 74 18 127/48 98 Room Air 04/29/16 21:52 73 18 Room Air 21 Height (Feet): 5 Height (Inches): 3.00 Weight (Pounds): 135 General Appearance: WD/WN, no acute distress HEENT: normocephalic, atraumatic, anicteric Respiratory/Chest: chest wall non-tender, lungs clear, normal breath sounds, no respiratory distress, no accessory muscle use Cardiovascular: normal peripheral pulses, normal rate, regular rhythm, no gallop/murmur Abdomen: normal bowel sounds, soft, non tender, no organomegaly, non distended , no mass, no scars Extremities: no cyanosis, no clubbing, other Skin: no rash, no lesions Laboratory Tests Test 04/30/16 04:50 04/30/16 13:50 White Blood Count 22.4 K/UL (4.8-10.8) *H Red Blood Count 3.06 M/UL (4.20-5.40) L Hemoglobin 9.9 G/DL (12.0-16.0) #L Hematocrit 28.9 % (37.0-47.0) L Mean Corpuscular Volume 94 FL (80-99) Mean Corpuscular Hemoglobin 32.2 PG (27.0-31.0) H Mean Corpuscular Hemoglobin Concent 34.2 G/DL (32.0-36.0) Red Cell Distribution Width 13.3 % (11.6-14.8) Platelet Count 210 K/UL (150-450) Mean Platelet Volume 8.0 FL (6.5-10.1) Neutrophils (%) (Auto) % (45.0-75.0) Lymphocytes (%) (Auto) % (20.0-45.0) Monocytes (%) (Auto) % (1.0-10.0) Eosinophils (%) (Auto) % (0.0-3.0) Basophils (%) (Auto) % (0.0-2.0) Differential Total Cells Counted 100 Neutrophils % (Manual) 66 % (45-75) Lymphocytes % (Manual) 24 % (20-45) Monocytes % (Manual) 9 % (1-10) Eosinophils % (Manual) 1 % (0-3) Basophils % (Manual) 0 % (0-2) Band Neutrophils 0 % (0-8) Platelet Estimate Adequate Platelet Morphology Normal Hypochromasia 1+ Sodium Level 149 mEQ/L (135-145) H Potassium Level 3.4 mEQ/L (3.4-4.9) Chloride Level 104 mEQ/L (98-107) Carbon Dioxide Level 23 mEQ/L (20-30) Anion Gap 22 (5-15) H Blood Urea Nitrogen 112 mg/dL (7-23) H Creatinine 2.8 mg/dL (0.5-0.9) H Estimat Glomerular Filtration Rate mL/min (>60) Glucose Level 205 mg/dL (74-106) #H Calcium Level 8.5 mg/dL (8.6-10.2) L Phosphorus Level 4.7 mg/dL (2.5-4.8) Prothrombin Time 9.9 SEC (9.30-11.50) Prothromb Time International Ratio 1.0 (0.9-1.1) Current Medications Medications (Trade) Dose Ordered Sig/Issa Route PRN Reason Start Time Stop Time Status Last Admin Dose Admin Acetaminophen (Tylenol) 650 mg Q4H PRN ORAL fever 04/27/16 21:00 05/27/16 20:59 Albuterol/ Ipratropium (DuoNeb 0.5-3(2.5)mg/3ml) 3 ml Q4H PRN HHN Shortness of Breath 04/27/16 21:00 05/02/16 20:59 Amikacin Protocol (Amikacin pharmacy to dose) 1 ea DAILY PRN MISC Per rx protocol 04/30/16 09:15 05/30/16 09:14 Amikacin Sulfate/ Sodium Chloride (Amikin/Sodium Chloride) 56 ml @ 112 mls/hr POSTHD IV 04/30/16 17:00 05/07/16 16:59 Amlodipine Besylate (Norvasc) 10 mg DAILY ORAL 04/28/16 09:00 05/28/16 08:59 04/29/16 10:09 Cefepime HCl 1 gm/ Dextrose 55 ml @ 110 mls/hr Q24H IVPB 04/28/16 03:00 05/03/16 02:59 04/30/16 02:56 Clonidine HCl (Catapres) 0.1 mg Q6HR GT 04/28/16 00:00 05/28/16 00:00 04/30/16 17:44 Dextrose (Dextrose 50%) STAT PRN IV Hypoglycemia 04/27/16 21:00 05/27/16 20:59 Docusate Sodium (Colace) 100 mg BID GT 04/30/16 18:00 05/30/16 17:59 04/30/16 17:45 Fluconazole/ Sodium Chloride (Diflucan 200mg/ 100ml Premix) 100 ml @ 100 mls/hr Q24H IV 04/29/16 13:00 05/06/16 12:59 04/29/16 13:42 Heparin Sodium (Porcine) (Heparin 5000 units/ml) 5,000 units EVERY 12 HOURS SUBQ 04/27/16 21:00 05/27/16 20:59 04/29/16 22:36 Insulin Aspart (NovoLOG) BEFORE MEALS AND HS SUBQ 04/27/16 22:00 05/27/16 21:59 04/30/16 17:44 Insulin Aspart 5 units 5 units Q6HR SUBQ 04/29/16 06:00 05/29/16 05:59 04/30/16 17:43 Insulin Detemir (Levemir) 30 units Q12H SUBQ 04/29/16 06:00 05/29/16 05:59 04/30/16 17:44 Linezolid (Zyvox) 300 ml @ 300 mls/hr Q12HR IVPB 04/27/16 21:00 05/04/16 20:59 04/30/16 09:57 Morphine Sulfate (Morphine Sulfate) 2 mg Q4H PRN IVP Moderate Pain (Pain Scale 4-6) 04/27/16 21:00 05/04/16 20:59 Nitroglycerin (Ntg) 0.4 mg Every 5 Minutes PRN SL Prn Chest Pain 04/27/16 19:45 05/27/16 19:44 Olanzapine (ZyPREXA) 7.5 mg DAILY ORAL 04/28/16 09:00 05/28/16 08:59 04/30/16 09:54 Ondansetron HCl (Zofran) 4 mg Q6H PRN IVP Nausea & Vomiting 04/27/16 21:00 05/27/16 20:59 Pantoprazole (Protonix) 40 mg Q12HR IV 04/27/16 21:00 05/27/16 20:59 04/30/16 09:55 Polyethylene Glycol (Miralax) 17 gm BEDTIME GT 04/30/16 21:00 05/30/16 20:59 Polyethylene Glycol (Miralax) 17 gm DAILYPRN PRN ORAL Constipation 04/27/16 22:45 05/27/16 22:44 Sodium Phosphate 133 ml 133 ml ONCE ONCE RECTAL 04/30/16 21:00 04/30/16 21:01 Temazepam (Restoril) 15 mg HSPRN PRN ORAL Insomnia 04/27/16 21:00 05/04/16 20:59 Virginia Matamoros M.D. Apr 30, 2016 18:06
--- NOTE | 2016-04-30 19:12 | Cardiology Report ---
APPROVED REPORT EKG Measurement Heart [id number] Normal sinus rhythm Rightward axis T wave abnormality, consider inferior ischemia Prolonged QT Abnormal ECG
[2016-04-30] MEDS: Vancomycin 1250mg/D5W 275ml IVPB ONE ×4 (20:00→22:08)
[2016-04-30] MEDS: Fleet's Enema 133ml RECTAL ONE ×2 (21:00→22:34)
[2016-04-30] MEDS ORDERED: Miralax 17gm pkt GT SCH (21:00)
--- NOTE | 2016-04-30 21:39 | Cardiology Progress Note ---
Assessment/Plan Assessment/Plan 1. Acute on chronic diastolic heart failure, continue with decreasing preload ( i.e. HD)and afterload reduction (i.e. use of CCB). 2. History of hypertension. 3. Paroxysmal atrial fibrillation per records as the patient's rhythm is now sinus. She would be considered to be high risk for CVA in face of paroxysmal atrial fibrillation, NOAC contraindicated as she had GI bleed recently. 4. History of akg-KZ-ahnrwzcib myocardial infarction with troponins as high as 5 in the previous admission. Medical therapy in view of her advanced encephalopathy and stroke in the past. We will continue with the atorvastatin at this time, ASA is contraindicated. 5. History of deep vein thrombosis, status post inferior vena cava filter placement. 6. PVD, OM ruled out by MRI, continue IVABx, requires amputation. Subjective Subjective No chest pain or SOB. Objective Last 24 Hour Vital Signs Date Time Temp Pulse Resp B/P Pulse Ox O2 Delivery O2 Flow Rate FiO2 04/30/16 20:00 97.3 72 18 137/56 99 Room Air 04/30/16 19:30 74 20 Room Air 21 04/30/16 17:44 127/53 04/30/16 16:05 79 25 127/53 99 Room Air 04/30/16 16:00 79 16 137/52 98 Room Air 04/30/16 15:55 80 20 139/50 99 Room Air 04/30/16 15:50 80 21 131/50 99 Room Air 04/30/16 15:39 77 24 04/30/16 12:52 98.0 79 19 107/35 97 Room Air 04/30/16 11:08 109/34 04/30/16 09:00 82 109/34 04/30/16 08:55 98.2 82 19 109/34 98 Room Air 04/30/16 07:58 80 18 Room Air 21 04/30/16 05:43 121/40 04/30/16 04:00 98.2 81 18 121/40 96 Room Air 04/30/16 00:00 127/48 04/29/16 23:55 97.9 74 18 127/48 98 Room Air 04/29/16 21:52 73 18 Room Air 21 Intake and Output 04/29/16 04/30/16 19:00 07:00 Intake Total 480 ml 995 ml Output Total 300 ml 550 ml Balance 180 ml 445 ml Free Water 460 ml IV Total 55 ml Tube Feeding 480 ml 480 ml Output Urine Total 300 ml 550 ml # Bowel Movements 1 Laboratory Tests Test 04/30/16 04:50 04/30/16 13:50 White Blood Count 22.4 K/UL (4.8-10.8) *H Red Blood Count 3.06 M/UL (4.20-5.40) L Hemoglobin 9.9 G/DL (12.0-16.0) #L Hematocrit 28.9 % (37.0-47.0) L Mean Corpuscular Volume 94 FL (80-99) Mean Corpuscular Hemoglobin 32.2 PG (27.0-31.0) H Mean Corpuscular Hemoglobin Concent 34.2 G/DL (32.0-36.0) Red Cell Distribution Width 13.3 % (11.6-14.8) Platelet Count 210 K/UL (150-450) Mean Platelet Volume 8.0 FL (6.5-10.1) Neutrophils (%) (Auto) % (45.0-75.0) Lymphocytes (%) (Auto) % (20.0-45.0) Monocytes (%) (Auto) % (1.0-10.0) Eosinophils (%) (Auto) % (0.0-3.0) Basophils (%) (Auto) % (0.0-2.0) Differential Total Cells Counted 100 Neutrophils % (Manual) 66 % (45-75) Lymphocytes % (Manual) 24 % (20-45) Monocytes % (Manual) 9 % (1-10) Eosinophils % (Manual) 1 % (0-3) Basophils % (Manual) 0 % (0-2) Band Neutrophils 0 % (0-8) Platelet Estimate Adequate Platelet Morphology Normal Hypochromasia 1+ Sodium Level 149 mEQ/L (135-145) H Potassium Level 3.4 mEQ/L (3.4-4.9) Chloride Level 104 mEQ/L (98-107) Carbon Dioxide Level 23 mEQ/L (20-30) Anion Gap 22 (5-15) H Blood Urea Nitrogen 112 mg/dL (7-23) H Creatinine 2.8 mg/dL (0.5-0.9) H Estimat Glomerular Filtration Rate mL/min (>60) Glucose Level 205 mg/dL (74-106) #H Calcium Level 8.5 mg/dL (8.6-10.2) L Phosphorus Level 4.7 mg/dL (2.5-4.8) Prothrombin Time 9.9 SEC (9.30-11.50) Prothromb Time International Ratio 1.0 (0.9-1.1) Objective GENERAL: The patient is a very unfortunate 80-year-old female, in no apparent respiratory distress, not awake. HEENT: Atraumatic and normocephalic. Anicteric. Pupils are equal, round, and reactive to light and accommodation. Conjunctival pallor. NECK: JVP less than 5 cm. No carotid bruit. Carotid upstrokes 2+ bilaterally. CARDIOVASCULAR: Normal S1 and S2. Regular rate and rhythm. No murmurs, gallops, or rubs. Heart sounds are relatively distant. LUNGS: Diminished breath sounds in both bases. ABDOMEN: Soft, nontender, and nondistended. No hepatosplenomegaly. Positive bowel sounds. EXTREMITIES: No evidence of edema, clubbing, or cyanosis. There is right upper extremity AV shunt with thrill. There is also decreased right motor more function. MICHELLE GARCIA Apr 30, 2016 21:39
--- NOTE | 2016-04-30 22:37 | Progress Note ---
DATE: 04/30/2016 CONSULTATION PROGRESS NOTE TREATING ATTENDING PHYSICIAN: Tavon Lyn D.O. SUBJECTIVE: The patient is a 80-year-old female. The patient is very confused, disorganized, altered mental status, unable to . The patient has poor insight and judgement and poor impulse control confused. altered mental status. Continue medication management and behavioral management. This physician has reviewed the patient's chart. Discussed with staff. Mer Jones PsyD. DR: EMILE JOB#: [id number] CC:
--- NOTE | 2016-04-30 23:48 | Pulmonology Progress Note ---
Assessment/Plan Problems: (1) Sepsis (2) UTI (urinary tract infection) (3) Acute hypernatremia (4) Renal insufficiency (5) [facility] resident (6) Open wnd foot-complicated (7) Gangrene of foot (8) HTN (hypertension) Assessment/Plan Plan Pain Management Aspiration precautions Continue Antbx Tight BP and BG control Wound Care Shift patient often F/U with culture results Subjective ROS Limited/Unobtainable: Yes Genitourinary: Reports: dysuria, frequency, hematuria, nocturia, urgency Neurologic: Reports: confusion, weakness Musculoskeletal: Reports: other - gangrenous open wound distal lower extremity with purulence, pain, stiffness, swelling Allergies: Coded Allergies: No Known Allergies (Unverified , 01/06/14) Objective Last 24 Hour Vital Signs Date Time Temp Pulse Resp B/P Pulse Ox O2 Delivery O2 Flow Rate FiO2 04/30/16 23:42 137/56 04/30/16 20:00 97.3 72 18 137/56 99 Room Air 04/30/16 19:30 74 20 Room Air 21 04/30/16 17:44 127/53 04/30/16 16:05 79 25 127/53 99 Room Air 04/30/16 16:00 79 16 137/52 98 Room Air 04/30/16 15:55 80 20 139/50 99 Room Air 04/30/16 15:50 80 21 131/50 99 Room Air 04/30/16 15:39 77 24 04/30/16 12:52 98.0 79 19 107/35 97 Room Air 04/30/16 11:08 109/34 04/30/16 09:00 82 109/34 04/30/16 08:55 98.2 82 19 109/34 98 Room Air 04/30/16 07:58 80 18 Room Air 21 04/30/16 05:43 121/40 04/30/16 04:00 98.2 81 18 121/40 96 Room Air 04/30/16 00:00 127/48 04/29/16 23:55 97.9 74 18 127/48 98 Room Air Intake and Output 04/29/16 04/30/16 19:00 07:00 Intake Total 480 ml 995 ml Output Total 300 ml 550 ml Balance 180 ml 445 ml Free Water 460 ml IV Total 55 ml Tube Feeding 480 ml 480 ml Output Urine Total 300 ml 550 ml # Bowel Movements 1 General Appearance: no acute distress HEENT: normocephalic, atraumatic, PERRL Respiratory/Chest: chest wall non-tender, decreased breath sounds, accessory muscle use Breasts: no masses Cardiovascular: normal peripheral pulses, normal rate, regular rhythm Abdomen: normal bowel sounds, soft, non tender, no organomegaly Genitourinary: normal external genitalia Extremities: other - gangrenous open wound distal lower extremity foot Skin: rash, lesions, ulcers Neurologic/Psychiatric: block setter gypsum II-XII grossly normal, responsive, disoriented Laboratory Tests 04/30/16 04:50: White Blood Count 22.4*H, Red Blood Count 3.06L, Hemoglobin 9.9#L, Hematocrit 28.9L, Mean Corpuscular Volume 94, Mean Corpuscular Hemoglobin 32.2H, Mean Corpuscular Hemoglobin Concent 34.2, Red Cell Distribution Width 13.3, Platelet Count 210, Mean Platelet Volume 8.0, Neutrophils (%) (Auto) , Lymphocytes (%) ( Auto) , Monocytes (%) (Auto) , Eosinophils (%) (Auto) , Basophils (%) (Auto) , Differential Total Cells Counted 100, Neutrophils % (Manual) 66, Lymphocytes % ( Manual) 24, Monocytes % (Manual) 9, Eosinophils % (Manual) 1, Basophils % ( Manual) 0, Band Neutrophils 0, Platelet Estimate Adequate, Platelet Morphology Normal, Hypochromasia 1+, Sodium Level 149H, Potassium Level 3.4, Chloride Level 104, Carbon Dioxide Level 23, Anion Gap 22H, Blood Urea Nitrogen 112H, Creatinine 2.8H, Estimat Glomerular Filtration Rate , Glucose Level 205#H, Calcium Level 8.5L, Phosphorus Level 4.7 04/30/16 13:50: Prothrombin Time 9.9, Prothromb Time International Ratio 1.0 Current Medications Medications (Trade) Dose Ordered Sig/Issa Route PRN Reason Start Time Stop Time Status Last Admin Dose Admin Acetaminophen (Tylenol) 650 mg Q4H PRN ORAL fever 04/27/16 21:00 05/27/16 20:59 Albuterol/ Ipratropium (DuoNeb 0.5-3(2.5)mg/3ml) 3 ml Q4H PRN HHN Shortness of Breath 04/27/16 21:00 05/02/16 20:59 Amikacin Protocol (Amikacin pharmacy to dose) 1 ea DAILY PRN MISC Per rx protocol 04/30/16 09:15 05/30/16 09:14 Amikacin Sulfate/ Sodium Chloride (Amikin/Sodium Chloride) 56 ml @ 112 mls/hr POSTHD IV 04/30/16 17:00 05/07/16 16:59 Amlodipine Besylate (Norvasc) 10 mg DAILY ORAL 04/28/16 09:00 05/28/16 08:59 04/29/16 10:09 Clonidine HCl (Catapres) 0.1 mg Q6HR GT 04/28/16 00:00 05/28/16 00:00 04/30/16 17:44 Dextrose (Dextrose 50%) STAT PRN IV Hypoglycemia 04/27/16 21:00 05/27/16 20:59 Docusate Sodium (Colace) 100 mg BID GT 04/30/16 18:00 05/30/16 17:59 04/30/16 17:45 Fluconazole/ Sodium Chloride (Diflucan 200mg/ 100ml Premix) 100 ml @ 100 mls/hr Q24H IV 04/29/16 13:00 05/06/16 12:59 04/29/16 13:42 Heparin Sodium (Porcine) (Heparin 5000 units/ml) 5,000 units EVERY 12 HOURS SUBQ 04/27/16 21:00 05/27/16 20:59 04/30/16 22:34 Insulin Aspart (NovoLOG) EVERY 6 HOURS SUBQ 05/01/16 00:00 05/31/16 00:00 04/30/16 23:41 Insulin Detemir 30 units 30 units Q12H SUBQ 04/29/16 06:00 05/29/16 05:59 04/30/16 17:44 Linezolid (Zyvox) 300 ml @ 300 mls/hr Q12HR IVPB 04/27/16 21:00 05/04/16 20:59 04/30/16 22:13 Morphine Sulfate (Morphine Sulfate) 2 mg Q4H PRN IVP Moderate Pain (Pain Scale 4-6) 04/27/16 21:00 05/04/16 20:59 Nitroglycerin (Ntg) 0.4 mg Every 5 Minutes PRN SL Prn Chest Pain 04/27/16 19:45 05/27/16 19:44 Olanzapine (ZyPREXA) 7.5 mg DAILY ORAL 04/28/16 09:00 05/28/16 08:59 04/30/16 09:54 Ondansetron HCl (Zofran) 4 mg Q6H PRN IVP Nausea & Vomiting 04/27/16 21:00 05/27/16 20:59 Pantoprazole (Protonix) 40 mg Q12HR IV 04/27/16 21:00 05/27/16 20:59 04/30/16 22:34 Polyethylene Glycol (Miralax) 17 gm DAILYPRN PRN ORAL Constipation 04/27/16 22:45 05/27/16 22:44 Polyethylene Glycol 17 gm 17 gm BEDTIME GT 04/30/16 21:00 05/30/16 20:59 04/30/16 22:33 Temazepam (Restoril) 15 mg HSPRN PRN ORAL Insomnia 04/27/16 21:00 05/04/16 20:59 FLAKITA YBARRA Apr 30, 2016 23:48
[2016-05-01] VITALS (8 sets, daily range): BP systolic 117–166; BP diastolic 48–57
[2016-05-01] MEDS ORDERED: NovoLOG Insulin Flexpen SUBQ SCH
[2016-05-01] MEDS: Levemir Flexpen SUBQ SCH ×2 (05:46→18:09)
[2016-05-01] MEDS: NovoLOG Insulin Flexpen SUBQ SCH ×3 (05:47→18:00)
[2016-05-01 07:32] LABS: MEAN CORPUSCULAR HEMOGLOBIN 31.6 PG (27.0-31.0); MEAN CORPUSCULAR HGB CONC 33.6 G/DL (32.0-36.0); MEAN CORPUSCULAR VOLUME 94 FL (80-99); MEAN PLATELET VOLUME 7.9 FL (6.5-10.1); PLATELET COUNT 259 K/UL (150-450); RED BLOOD COUNT 3.09 M/UL (4.20-5.40); RED CELL DISTRIBUTION WIDTH 13.8 % (11.6-14.8); WHITE BLOOD COUNT 19.8 K/UL (4.8-10.8)
[2016-05-01 07:59] LABS: FERRITIN 244 ng/mL (13-150)
[2016-05-01 08:00] LABS: ANION GAP 19 (5-15); CALCIUM 8.9 mg/dL (8.6-10.2); CARBON DIOXIDE 26 mEQ/L (20-30); CHLORIDE 101 mEQ/L (98-107); CREATININE 2.4 mg/dL (0.5-0.9); HEMOLYSIS 3; POTASSIUM 3.8 mEQ/L (3.4-4.9); SODIUM 146 mEQ/L (135-145)
[2016-05-01] MEDS: Pantoprazole Inj IV SCH (08:45)
[2016-05-01] MEDS: Docusate 100mg tablet GT SCH ×2 (08:45→18:08)
[2016-05-01 08:57] LABS: BAND NEUTROPHILS % (MANUAL) 0 % (0-8); BASOPHILS % (MANUAL) 0 % (0-2); EOSINOPHILS % (MANUAL) 1 % (0-3); HYPOCHROMASIA 1+; LYMPHOCYTES % (MANUAL) 18 % (20-45); NEUTROPHILS % (MANUAL) 78 % (45-75); PLATELET ESTIMATE ADEQUATE; PLATELET MORPHOLOGY NORMAL; TOTAL CELLS COUNTED 100
[2016-05-01] MEDS: OLANZapine 2.5mg tab ORAL SCH (08:58)
[2016-05-01] MEDS: Heparin 5000 units/ml inj SUBQ SCH (08:58)
[2016-05-01 09:58] LABS: PROTHROMBIN TIME 9.9 SEC (9.30-11.50)
[2016-05-01] MEDS ORDERED: DiphenhydrAMINE 50mg/ml Inj IVP PRN (10:30)
--- NOTE | 2016-05-01 10:32 | Nephrology Progress Note ---
Assessment/Plan Assessment 1. Hypernatremia 2. End-stage renal disease based on the patient evaluation. 3. Hypercalcemia. 4. Severe dehydration. 5. Elevated white blood cell count and sepsis. Plan plan to replace dialysis cath free water via g tube continue epogen iv antibiotic check phos check pre albumin Subjective Constitutional: Reports: no symptoms HEENT: Reports: no symptoms Genitourinary: Reports: no symptoms Neurologic/Psychiatric: Reports: no symptoms Subjective more awake today had dialysis cath placed yesterday Objective Objective Last 24 Hour Vital Signs Date Time Temp Pulse Resp B/P Pulse Ox O2 Delivery O2 Flow Rate FiO2 05/01/16 09:20 97.2 72 22 140/57 Room Air 05/01/16 09:20 Room Air 05/01/16 08:58 84 134/48 05/01/16 08:56 97.0 84 19 134/48 94 Room Air 05/01/16 07:57 83 18 Room Air 21 05/01/16 06:00 125/50 05/01/16 04:00 98.3 78 19 125/50 98 Room Air 05/01/16 00:00 97.6 79 23 127/50 98 Room Air 04/30/16 23:42 137/56 04/30/16 20:00 97.3 72 18 137/56 99 Room Air 04/30/16 19:30 74 20 Room Air 21 04/30/16 17:44 127/53 04/30/16 16:05 79 25 127/53 99 Room Air 04/30/16 16:00 79 16 137/52 98 Room Air 04/30/16 15:55 80 20 139/50 99 Room Air 04/30/16 15:50 80 21 131/50 99 Room Air 04/30/16 15:39 77 24 04/30/16 12:52 98.0 79 19 107/35 97 Room Air 04/30/16 11:08 109/34 Intake and Output 04/30/16 05/01/16 19:00 07:00 Intake Total 2080 ml 942 ml Output Total 250 ml Balance 1830 ml 942 ml Free Water 1380 ml 462 ml IV Total 300 ml Tube Feeding 400 ml 480 ml Output Urine Total 250 ml Laboratory Tests 04/30/16 13:50: Prothrombin Time 9.9, Prothromb Time International Ratio 1.0 05/01/16 05:20: White Blood Count 19.8H, Red Blood Count 3.09L, Hemoglobin 9.8L, Hematocrit 29.1L, Mean Corpuscular Volume 94, Mean Corpuscular Hemoglobin 31.6H, Mean Corpuscular Hemoglobin Concent 33.6, Red Cell Distribution Width 13.8, Platelet Count 259, Mean Platelet Volume 7.9, Neutrophils (%) (Auto) , Lymphocytes (%) ( Auto) , Monocytes (%) (Auto) , Eosinophils (%) (Auto) , Basophils (%) (Auto) , Differential Total Cells Counted 100, Neutrophils % (Manual) 78H, Lymphocytes % (Manual) 18L, Monocytes % (Manual) 3, Eosinophils % (Manual) 1, Basophils % ( Manual) 0, Band Neutrophils 0, Platelet Estimate Adequate, Platelet Morphology Normal, Hypochromasia 1+, Reticulocyte Count [Pending], Sodium Level 146H, Potassium Level 3.8, Chloride Level 101, Carbon Dioxide Level 26, Anion Gap 19H , Blood Urea Nitrogen 109H, Creatinine 2.4H, Estimat Glomerular Filtration Rate , Glucose Level 289H, Calcium Level 8.9, Iron Level 39, Total Iron Binding Capacity 209L, Percent Iron Saturation 19, Unsaturated Iron Binding 170, Ferritin 244H, Carcinoembryonic Antigen 5.4H, Vitamin B12 Level 1345H, Folate [ Pending], Thyroid Stimulating Hormone (TSH) 2.730, Free Thyroxine 1.38 05/01/16 06:20: Stool Occult Blood [Pending] 05/01/16 08:40: Prothrombin Time 9.9, Prothromb Time International Ratio 1.0, Activated Partial Thromboplast Time 23 Height (Feet): 5 Height (Inches): 3.00 Weight (Pounds): 136 Objective HEENT/NECK: Head and neck: No JVP. No LAD. No thyromegaly. Extraocular movement intact. Pupils are reactive to light and accommodation. LUNGS: Decreased breathing sound on the both sides. CARDIAC: Regular rate and rhythm. S1 and S2. No murmur. No rub. ABDOMEN: Soft, nontender, and nondistended. EXTREMITIES: Left lower extremity is on cast. DAINA AVELAR May 01, 2016 10:32
--- NOTE | 2016-05-01 15:04 | GI Progress Note ---
Assessment/Plan Problems: (1) G tube feedings ICD Codes: Z93.1 - Gastrostomy status SNOMED: 658427277, 201146699 (2) Fecal impaction ICD Codes: K56.41 - Fecal impaction SNOMED: 95658428 (3) Anemia ICD Codes: D64.9 - Anemia, unspecified SNOMED: 914997298 Status: progressing Status Narrative Discussed with Dr. Rodriguez. Assessment/Plan defer any GI procedures given leukocytosis abx OB stool positive monitor H&H, transfuse prn bowel regime ppi fu labs The patient was seen and examined at bedside and all new and available data was reviewed in the patients chart. I agree with the above findings, impression and plan. (Patient seen earlier today. Signature stamp does not reflect patient encounter time.). -Bryan Rodriguez MD Subjective Subjective limited Objective Last 24 Hour Vital Signs Date Time Temp Pulse Resp B/P Pulse Ox O2 Delivery O2 Flow Rate FiO2 05/01/16 12:27 Room Air 05/01/16 12:26 166/53 05/01/16 12:25 97.0 98 18 166/53 Room Air 05/01/16 12:12 97.0 92 18 119/52 98 Room Air 05/01/16 09:20 97.2 72 22 140/57 Room Air 05/01/16 09:20 Room Air 05/01/16 08:58 84 134/48 05/01/16 08:56 97.0 84 19 134/48 94 Room Air 05/01/16 07:57 83 18 Room Air 05/01/16 06:00 125/50 05/01/16 04:00 98.3 78 19 125/50 98 Room Air 05/01/16 00:00 97.6 79 23 127/50 98 Room Air 04/30/16 23:42 137/56 04/30/16 20:00 97.3 72 18 137/56 99 Room Air 04/30/16 19:30 74 20 Room Air 21 04/30/16 17:44 127/53 04/30/16 16:05 79 25 127/53 99 Room Air 04/30/16 16:00 79 16 137/52 98 Room Air 04/30/16 15:55 80 20 139/50 99 Room Air 04/30/16 15:50 80 21 131/50 99 Room Air 04/30/16 15:39 77 24 Intake and Output 04/30/16 05/01/16 19:00 07:00 Intake Total 2080 ml 942 ml Output Total 250 ml Balance 1830 ml 942 ml Free Water 1380 ml 462 ml IV Total 300 ml Tube Feeding 400 ml 480 ml Output Urine Total 250 ml Laboratory Tests Test 05/01/16 05:20 05/01/16 06:20 05/01/16 08:40 White Blood Count 19.8 K/UL (4.8-10.8) H Red Blood Count 3.09 M/UL (4.20-5.40) L Hemoglobin 9.8 G/DL (12.0-16.0) L Hematocrit 29.1 % (37.0-47.0) L Mean Corpuscular Volume 94 FL (80-99) Mean Corpuscular Hemoglobin 31.6 PG (27.0-31.0) H Mean Corpuscular Hemoglobin Concent 33.6 G/DL (32.0-36.0) Red Cell Distribution Width 13.8 % (11.6-14.8) Platelet Count 259 K/UL (150-450) Mean Platelet Volume 7.9 FL (6.5-10.1) Neutrophils (%) (Auto) % (45.0-75.0) Lymphocytes (%) (Auto) % (20.0-45.0) Monocytes (%) (Auto) % (1.0-10.0) Eosinophils (%) (Auto) % (0.0-3.0) Basophils (%) (Auto) % (0.0-2.0) Differential Total Cells Counted 100 Neutrophils % (Manual) 78 % (45-75) H Lymphocytes % (Manual) 18 % (20-45) L Monocytes % (Manual) 3 % (1-10) Eosinophils % (Manual) 1 % (0-3) Basophils % (Manual) 0 % (0-2) Band Neutrophils 0 % (0-8) Platelet Estimate Adequate Platelet Morphology Normal Hypochromasia 1+ Reticulocyte Count 1.2 % (0.0-2.0) Sodium Level 146 mEQ/L (135-145) H Potassium Level 3.8 mEQ/L (3.4-4.9) Chloride Level 101 mEQ/L (98-107) Carbon Dioxide Level 26 mEQ/L (20-30) Anion Gap 19 (5-15) H Blood Urea Nitrogen 109 mg/dL (7-23) H Creatinine 2.4 mg/dL (0.5-0.9) H Estimat Glomerular Filtration Rate mL/min (>60) Glucose Level 289 mg/dL (74-106) H Calcium Level 8.9 mg/dL (8.6-10.2) Iron Level 39 ug/dL (37-145) Total Iron Binding Capacity 209 ug/dL (250-400) L Percent Iron Saturation 19 % (15-50) Unsaturated Iron Binding 170 ug/dL (112-346) Ferritin 244 ng/mL (13-150) H Carcinoembryonic Antigen 5.4 ng/mL H Vitamin B12 Level 1345 pg/mL (211-946) H Folate Pending Thyroid Stimulating Hormone (TSH) 2.730 uIU/mL (0.300-4.500) Free Thyroxine 1.38 ng/dL (0.86-1.85) Stool Occult Blood Positive (NEGATIVE) Prothrombin Time 9.9 SEC (9.30-11.50) Prothromb Time International Ratio 1.0 (0.9-1.1) Activated Partial Thromboplast Time 23 SEC (23-33) Microbiology Date/Time Source Procedure Growth Status 04/30/16 16:15 Other(Specify in comment) Catheter Tip Culture - Preliminary NO GROWTH Resulted Height (Feet): 5 Height (Inches): 3.00 Weight (Pounds): 136 General Appearance: no apparent distress, lethargic Cardiovascular: normal rate Respiratory/Chest: normal breath sounds Abdominal Exam: GT site - c/d/i Catherine Perdomo N.PSamuel May 01, 2016 15:04 BRYAN RODRIGUEZ May 07, 2016 08:09
--- NOTE | 2016-05-01 15:17 | General Progress Note ---
Assessment/Plan Problem List: (1) Morbid obesity ICD Codes: E66.01 - Morbid obesity SNOMED: 122466408 (2) UTI (urinary tract infection) ICD Codes: N39.0 - Urinary tract infection, site not specified SNOMED: 26387230 (3) Sepsis ICD Codes: A41.9 - Sepsis, unspecified organism SNOMED: 40218205 (4) Open wnd foot-complicated ICD Codes: S91.309A - Unspecified open wound, unspecified foot, initial encounter SNOMED: 204925852 (5) DM (diabetes mellitus) ICD Codes: E11.9 - DM (diabetes mellitus) SNOMED: 81822675 (6) ESRD (end stage renal disease) ICD Codes: N18.6 - End stage renal disease SNOMED: 21033466 Status: stable, progressing, tolerating diet Assessment/Plan ot pt diet wound care abd vasc pod eval dialysis cbc bmp am possible leg sx dc to [facility] Subjective Allergies: Coded Allergies: No Known Allergies (Unverified , 01/06/14) All Systems: reviewed and negative except above Subjective calm in bed Objective Last 24 Hour Vital Signs Date Time Temp Pulse Resp B/P Pulse Ox O2 Delivery O2 Flow Rate FiO2 05/01/16 12:27 Room Air 05/01/16 12:26 166/53 05/01/16 12:25 97.0 98 18 166/53 Room Air 05/01/16 12:12 97.0 92 18 119/52 98 Room Air 05/01/16 09:20 97.2 72 22 140/57 Room Air 05/01/16 09:20 Room Air 05/01/16 08:58 84 134/48 05/01/16 08:56 97.0 84 19 134/48 94 Room Air 05/01/16 07:57 83 18 Room Air 21 05/01/16 06:00 125/50 05/01/16 04:00 98.3 78 19 125/50 98 Room Air 05/01/16 00:00 97.6 79 23 127/50 98 Room Air 04/30/16 23:42 137/56 04/30/16 20:00 97.3 72 18 137/56 99 Room Air 04/30/16 19:30 74 20 Room Air 21 04/30/16 17:44 127/53 1/23/17 16:05 79 25 127/53 99 Room Air 04/30/16 16:00 79 16 137/52 98 Room Air 04/30/16 15:55 80 20 139/50 99 Room Air 04/30/16 15:50 80 21 131/50 99 Room Air 04/30/16 15:39 77 24 Intake and Output 04/30/16 05/01/16 19:00 07:00 Intake Total 2080 ml 942 ml Output Total 250 ml Balance 1830 ml 942 ml Free Water 1380 ml 462 ml IV Total 300 ml Tube Feeding 400 ml 480 ml Output Urine Total 250 ml Laboratory Tests 05/01/16 05:20: White Blood Count 19.8H, Red Blood Count 3.09L, Hemoglobin 9.8L, Hematocrit 29.1L, Mean Corpuscular Volume 94, Mean Corpuscular Hemoglobin 31.6H, Mean Corpuscular Hemoglobin Concent 33.6, Red Cell Distribution Width 13.8, Platelet Count 259, Mean Platelet Volume 7.9, Neutrophils (%) (Auto) , Lymphocytes (%) ( Auto) , Monocytes (%) (Auto) , Eosinophils (%) (Auto) , Basophils (%) (Auto) , Differential Total Cells Counted 100, Neutrophils % (Manual) 78H, Lymphocytes % (Manual) 18L, Monocytes % (Manual) 3, Eosinophils % (Manual) 1, Basophils % ( Manual) 0, Band Neutrophils 0, Platelet Estimate Adequate, Platelet Morphology Normal, Hypochromasia 1+, Reticulocyte Count 1.2, Sodium Level 146H, Potassium Level 3.8, Chloride Level 101, Carbon Dioxide Level 26, Anion Gap 19H, Blood Urea Nitrogen 109H, Creatinine 2.4H, Estimat Glomerular Filtration Rate , Glucose Level 289H, Calcium Level 8.9, Iron Level 39, Total Iron Binding Capacity 209L, Percent Iron Saturation 19, Unsaturated Iron Binding 170, Ferritin 244H, Carcinoembryonic Antigen 5.4H, Vitamin B12 Level 1345H, Folate [ Pending], Thyroid Stimulating Hormone (TSH) 2.730, Free Thyroxine 1.38 05/01/16 06:20: Stool Occult Blood Positive 05/01/16 08:40: Prothrombin Time 9.9, Prothromb Time International Ratio 1.0, Activated Partial Thromboplast Time 23 Height (Feet): 5 Height (Inches): 3.00 Weight (Pounds): 136 General Appearance: lethargic EENT: normal ENT inspection Neck: normal alignment Cardiovascular: normal peripheral pulses, normal rate, regular rhythm Respiratory/Chest: chest wall non-tender, lungs clear, normal breath sounds Abdomen: normal bowel sounds, non tender, soft Extremities: normal inspection Edema: no edema noted Arm (L), no edema noted Arm (R), no edema noted Leg (L), no edema noted Leg (R), no edema noted Pedal (L), no edema noted Pedal (R), no edema noted Generalized Neurologic: motor weakness Skin: normal pigmentation, warm/dry FRANDY SWIFT May 01, 2016 15:17
[2016-05-01] MEDS ORDERED: AMIKACIN S500 MG/2 M IJ (16:08)
[2016-05-01] MEDS ORDERED: DIPHENHYDRAMINE25 M1 ORAL (16:09)
[2016-05-01] MEDS ORDERED: DIPHENHYDR50 MG/1 M1 IJ (16:12)
[2016-05-01] MEDS ORDERED: DOCUSATE SODIU100 MG GT (16:13)
[2016-05-01] MEDS ORDERED: Diflucan IV (16:17)
[2016-05-01] MEDS ORDERED: LEVEMIR FL100 UNIT/1 SUBQ (16:19)
[2016-05-01] MEDS ORDERED: LINEZOLID600 MG/300 IV (16:20)
[2016-05-01] MEDS ORDERED: MORPHINE 11 MG/2 ML IV (16:21)
[2016-05-01] MEDS ORDERED: NITROGLYCERIN0.4 MG SL (16:22)
[2016-05-01] MEDS ORDERED: MIRALAX17 G2 ORAL (16:23)
--- NOTE | 2016-05-01 17:32 | Infectious Diseases Prog Note ---
Assessment/Plan Problems: (1) Sepsis Assessment & Plan: due to UTI, and foot infection, on zyvox and cefepime empirically, blood culture grew coag negative staph in two bottles suspect due to right foot gangren. 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 will order echo to rule out vegetations, and repeat blood culture to confirm clearance (2) Gangrene of foot Assessment & Plan: was evaluated by vascular due to sever PVD, need amputation , MRI of the foot ruled out osteomyelitis, continue wide spectrum antibiotics and local wound care (3) Open wnd foot-complicated Assessment & Plan: with aleena, appreciate marketing engineer input , had significant vascular disease , was evaluated by vascular surgery and need amputation , continue local wound care and off loading (4) DM (diabetes mellitus) Assessment & Plan: recommend tight glycemic control to keep blood glucose between 80-120 (5) UTI (urinary tract infection) Assessment & Plan: with VRE on zyvox, and MDR pseudomonas aeruginosa , will add amikacin to cover for pseudomonas, and continue zyvox to cover for both VRE in the urine (6) Acute hypernatremia Assessment & Plan: due to dehydration, continue IVF, monitor sodium level, and electrolytes (7) Colonization with VRE (vancomycin-resistant enterococcus) Assessment & Plan: keep in contact isolation Subjective ROS Limited/Unobtainable: Yes Allergies: Coded Allergies: No Known Allergies (Unverified , 01/06/14) Subjective she is demented, resting in bed, not in distress, afebrile. Objective Vital Signs Last 24 Hour Vital Signs Date Time Temp Pulse Resp B/P Pulse Ox O2 Delivery O2 Flow Rate FiO2 05/01/16 16:00 97.9 82 16 117/48 97 Room Air 05/01/16 12:27 Room Air 05/01/16 12:26 166/53 05/01/16 12:25 97.0 98 18 166/53 Room Air 05/01/16 12:12 97.0 92 18 119/52 98 Room Air 05/01/16 09:20 97.2 72 22 140/57 Room Air 05/01/16 09:20 Room Air 05/01/16 08:58 84 134/48 05/01/16 08:56 97.0 84 19 134/48 94 Room Air 05/01/16 07:57 83 18 Room Air 21 05/01/16 06:00 125/50 05/01/16 04:00 98.3 78 19 125/50 98 Room Air 05/01/16 00:00 97.6 79 23 127/50 98 Room Air 04/30/16 23:42 137/56 04/30/16 20:00 97.3 72 18 137/56 99 Room Air 04/30/16 19:30 74 20 Room Air 21 04/30/16 17:44 127/53 Height (Feet): 5 Height (Inches): 3.00 Weight (Pounds): 136 General Appearance: WD/WN, no acute distress HEENT: normocephalic, atraumatic, anicteric, mucous membranes moist Respiratory/Chest: chest wall non-tender, lungs clear, normal breath sounds, no respiratory distress, no accessory muscle use Cardiovascular: normal peripheral pulses, normal rate, regular rhythm, no gallop/murmur Abdomen: normal bowel sounds, soft, non tender, no organomegaly, non distended , no mass Extremities: other - gangren Skin: no rash, no lesions, ulcers Microbiology Date/Time Source Procedure Growth Status 04/30/16 16:15 Other(Specify in comment) Catheter Tip Culture - Preliminary NO GROWTH Resulted Laboratory Tests Test 05/01/16 05:20 05/01/16 06:20 05/01/16 08:40 05/01/16 14:50 White Blood Count 19.8 K/UL (4.8-10.8) H Red Blood Count 3.09 M/UL (4.20-5.40) L Hemoglobin 9.8 G/DL (12.0-16.0) L Hematocrit 29.1 % (37.0-47.0) L Mean Corpuscular Volume 94 FL (80-99) Mean Corpuscular Hemoglobin 31.6 PG (27.0-31.0) H Mean Corpuscular Hemoglobin Concent 33.6 G/DL (32.0-36.0) Red Cell Distribution Width 13.8 % (11.6-14.8) Platelet Count 259 K/UL (150-450) Mean Platelet Volume 7.9 FL (6.5-10.1) Neutrophils (%) (Auto) % (45.0-75.0) Lymphocytes (%) (Auto) % (20.0-45.0) Monocytes (%) (Auto) % (1.0-10.0) Eosinophils (%) (Auto) % (0.0-3.0) Basophils (%) (Auto) % (0.0-2.0) Differential Total Cells Counted 100 Neutrophils % (Manual) 78 % (45-75) H Lymphocytes % (Manual) 18 % (20-45) L Monocytes % (Manual) 3 % (1-10) Eosinophils % (Manual) 1 % (0-3) Basophils % (Manual) 0 % (0-2) Band Neutrophils 0 % (0-8) Platelet Estimate Adequate Platelet Morphology Normal Hypochromasia 1+ Reticulocyte Count 1.2 % (0.0-2.0) Sodium Level 146 mEQ/L (135-145) H Potassium Level 3.8 mEQ/L (3.4-4.9) Chloride Level 101 mEQ/L (98-107) Carbon Dioxide Level 26 mEQ/L (20-30) Anion Gap 19 (5-15) H Blood Urea Nitrogen 109 mg/dL (7-23) H Creatinine 2.4 mg/dL (0.5-0.9) H Estimat Glomerular Filtration Rate mL/min (>60) Glucose Level 289 mg/dL (74-106) H Calcium Level 8.9 mg/dL (8.6-10.2) Iron Level 39 ug/dL (37-145) Total Iron Binding Capacity 209 ug/dL (250-400) L Percent Iron Saturation 19 % (15-50) Unsaturated Iron Binding 170 ug/dL (112-346) Ferritin 244 ng/mL (13-150) H Carcinoembryonic Antigen 5.4 ng/mL H Vitamin B12 Level 1345 pg/mL (211-946) H Folate Pending Thyroid Stimulating Hormone (TSH) 2.730 uIU/mL (0.300-4.500) Free Thyroxine 1.38 ng/dL (0.86-1.85) Stool Occult Blood Positive (NEGATIVE) Pending Prothrombin Time 9.9 SEC (9.30-11.50) Prothromb Time International Ratio 1.0 (0.9-1.1) Activated Partial Thromboplast Time 23 SEC (23-33) Current Medications Medications (Trade) Dose Ordered Sig/Issa Route PRN Reason Start Time Stop Time Status Last Admin Dose Admin Acetaminophen (Tylenol) 650 mg Q4H PRN ORAL fever 04/27/16 21:00 05/27/16 20:59 Albuterol/ Ipratropium (DuoNeb 0.5-3(2.5)mg/3ml) 3 ml Q4H PRN HHN Shortness of Breath 04/27/16 21:00 05/02/16 20:59 Amikacin Protocol (Amikacin pharmacy to dose) 1 ea DAILY PRN MISC Per rx protocol 04/30/16 09:15 05/30/16 09:14 Amikacin Sulfate/ Sodium Chloride (Amikin/Sodium Chloride) 56 ml @ 112 mls/hr POSTHD IV 04/30/16 17:00 05/07/16 16:59 Amlodipine Besylate (Norvasc) 10 mg DAILY ORAL 04/28/16 09:00 05/28/16 08:59 04/29/16 10:09 Clonidine HCl (Catapres) 0.1 mg Q6HR GT 04/28/16 00:00 05/28/16 00:00 05/01/16 12:26 Dextrose (Dextrose 50%) STAT PRN IV Hypoglycemia 04/27/16 21:00 05/27/16 20:59 Diphenhydramine HCl (Benadryl) 25 mg Q6H PRN IVP Itching 05/01/16 10:30 05/31/16 10:29 Docusate Sodium (Colace) 100 mg BID GT 04/30/16 18:00 05/30/16 17:59 05/01/16 08:45 Fluconazole/ Sodium Chloride (Diflucan 200mg/ 100ml Premix) 100 ml @ 100 mls/hr Q24H IV 04/29/16 13:00 05/06/16 12:59 05/01/16 12:42 Heparin Sodium (Porcine) (Heparin 5000 units/ml) 5,000 units EVERY 12 HOURS SUBQ 04/27/16 21:00 05/27/16 20:59 04/30/16 22:34 Insulin Aspart (NovoLOG) EVERY 6 HOURS SUBQ 05/01/16 00:00 05/31/16 00:00 05/01/16 12:42 Insulin Detemir 30 units 30 units Q12H SUBQ 04/29/16 06:00 05/29/16 05:59 05/01/16 05:46 Linezolid (Zyvox) 300 ml @ 300 mls/hr Q12HR IVPB 04/27/16 21:00 05/04/16 20:59 05/01/16 08:46 Morphine Sulfate (Morphine Sulfate) 2 mg Q4H PRN IVP Moderate Pain (Pain Scale 4-6) 04/27/16 21:00 05/04/16 20:59 Nitroglycerin (Ntg) 0.4 mg Every 5 Minutes PRN SL Prn Chest Pain 04/27/16 19:45 05/27/16 19:44 Olanzapine (ZyPREXA) 7.5 mg DAILY ORAL 04/28/16 09:00 05/28/16 08:59 05/01/16 08:58 Ondansetron HCl (Zofran) 4 mg Q6H PRN IVP Nausea & Vomiting 04/27/16 21:00 05/27/16 20:59 Pantoprazole (Protonix) 40 mg Q12HR IV 04/27/16 21:00 05/27/16 20:59 05/01/16 08:45 Polyethylene Glycol (Miralax) 17 gm DAILYPRN PRN ORAL Constipation 04/27/16 22:45 05/27/16 22:44 Polyethylene Glycol 17 gm 17 gm BEDTIME GT 04/30/16 21:00 05/30/16 20:59 04/30/16 22:33 Temazepam (Restoril) 15 mg HSPRN PRN ORAL Insomnia 04/27/16 21:00 05/04/16 20:59 Virginia Matamoros M.D. May 01, 2016 17:32
[2016-05-01] MEDS ORDERED: Tubing Blood Filter IV ONE (21:19)
[2016-05-01] MEDS ORDERED: Tubing IV Secondary IV ONE (21:19)
[2016-05-02] MEDS ORDERED: DAPTOmycin 350 MG in NS 55 ML IV SCH (09:00)
--- NOTE | 2016-05-03 14:16 | Discharge Summary ---
Discharge Summary Hospital Course Date of Admission Apr 25, 2016 at 21:23 Date of Discharge May 01, 2016 at 21:20 Admitting Diagnosis Sepsis, CRF HPI Concha Segovia is a 80 year old female who was admitted on Apr 25, 2016 at 21:23 for Sepsis,Chronic Renal Failure Hospital Course [id number] Discharge Discharge Disposition Patient was discharged to [facility] (63) Discharge Diagnoses: Libby Weldon NP May 03, 2016 14:16
--- NOTE | 2016-05-04 02:57 | Discharge Summary 2 SIG ---
DATE OF ADMISSION: 04/25/2016 DATE OF DISCHARGE: 05/01/2016 CONSULTANTS: 1. Guilherme Rodriguez M.D. 2. Yadira Noland M.D. 3. Tc Murdock M.D. 4. Wang Mukherjee D.P.M. 5. Mer Jones M.D. 6. Virginia Matamoros M.D. 7. Leigh Ann Khalil M.D. 8. Sammi Lopez M.D. 9. Bryan Rodriguez M.D. BRIEF HOSPITAL COURSE: The patient is a 80-year-old female, who came from long term, was sent in for abnormal labs. The patient was with nausea and weakness and was found to have sepsis and chronic renal failure, and was admitted to telemetry for further care. She was given IV hydration and IV antibiotics. Dr. Lopez was consulted. Renal ultrasound showed negative hydronephrosis. She was given inpatient hemodialysis management. The patient came in with multiple wounds on her right foot and ankle and sacrum concerning for infection and gangrenous change on the right foot. Dr. Matamoros was consulted. Right ankle MRI showed no evidence of osteomyelitis or abscess. She was given cefepime and vancomycin. Vancomycin was discontinued due to nephrotoxicity and was given Zyvox instead. Podiatry evaluation was done. Wound care was provided. The patient has a non-salvageable right leg with severe ischemia, calcific multilevel arterial occlusive disease, and the patient will require right leg [id number] amputation. He was also consulted as the patient had a nonfunctional right chest with Perma catheter. The catheter cuff was exposed. She underwent temporary Lopez catheter placement. The patient also had bimalleolar fracture, for which below-knee cast was present. Cast has been removed. Left ankle fracture was healed. There were no wounds noted beneath the cast. Dr. Rodriguez was consulted for management of tachycardia as well as heart failure. The patient has acute on chronic diastolic heart failure and the U-wave velocity was above 200 cm/sec. The patient required aggressive hemodialysis to decrease the preload and also to decrease afterload with medications such as calcium channel maribel and hydralazine. She also had a history of paroxysmal atrial fibrillation in February 2016, but currently has been on sinus rhythm. She was also continued on statins. Dr. Noland was consulted. The patient was diagnosed with paranoid schizophrenia with acute exacerbation and was given Zyprexa. Dr. Rodriguez was consulted for anemia. Hemoglobin dropped to 7.6 and received one unit packed RBC transfusion. Stool OB was positive. The patient was given proton pump inhibitors and bowel regimen. GI procedures were deferred due to the patient's leukocytosis. Urine culture showed growth of VRE and Pseudomonas MDR. Blood cultures grew coagulase-negative Staph in two bottles, possibly due to right foot gangrene. Sepsis was secondary to foot infection and urinary tract infection and will need source control with right BKA. The patient was eventually discharged to [facility]. FINAL DIAGNOSES: 1. Sepsis secondary to infected leg and urinary tract infection. 2. Morbid obesity. 3. Urinary tract infection. 4. End-stage renal disease, on hemodialysis. 5. Gangrene of the foot. 6. Diabetes mellitus. 7. Acute hypernatremia. 8. Acute anemia, status post transfusion. 9. Fecal impaction. 10. Dysphagia, on gastrostomy tube feed. 11. Hypercalcemia. 12. Severe dehydration. 13. Anemia of chronic kidney disease. 14. Paranoid schizophrenia. 15. Acute on chronic diastolic heart failure. 16. Paroxysmal atrial fibrillation. 17. Peripheral vascular disease. 18. History of [id number] myocardial infarction. 19. 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 20. Severe occlusive peripheral arterial disease with left leg ischemia and non-salvageable right leg. 21. Multiple pressure ulcers, present on admission. Refer to wound documentation. Tavon Lyn D.O. I have been assigned to dictate discharge summary on this account and I was not involved in the patient's management. Libby Weldon N.P. DR: DOMENIC JOB#: [id number] CC:
--- NOTE | 2016-05-06 23:47 | Progress Note ---
DATE: 05/01/2016 PLAN: The patient has chronic renal failure and sepsis, and we will continue treatment with psychotropic medications to stabilize her mood. Chart reviewed and discussed with the staff. Yadira Noland M.D. DR: JENNIFER JOB#: [id number] CC:
--- NOTE | 2016-05-07 02:47 | Progress Note ---
DATE: 04/30/2016 SUBJECTIVE: She is a 80-year-old female patient with sepsis and chronic renal failure. PLAN: Plan to treat her with psychotropic medications. Stabilize her mood. Chart reviewed and discussed with the staff. Seen and assessed at bedside. Yadira Noland M.D. DR: Melody JOB#: [id number] CC:
--- NOTE | 2016-05-08 08:55 | Cardiology Report ---
APPROVED REPORT EXAM: Two-dimensional and M-mode echocardiogram with Doppler and color Doppler. INDICATION Endocarditis M-Mode DIMENSIONS IVSd0.9 (0.7-1.1cm)Left Atrium (MM)4.1 (1.6-4.0cm) LVDd4.6 (3.5-5.6cm)Aortic Root2.7 (2.0-3.7cm) PWd0.8 (0.7-1.1cm)Aortic Cusp Exc.1.5 (1.5-2.0cm) LVDs3.1 (2.5-4.0cm) PWs1.0 cm Technically difficult study due to poor acoustic windows. Normal left ventricular chamber size, systolic function and wall motion. Left ventricular ejection fraction estimated to be 70-75%. No evidence of left ventricular hypertrophy. No evidence of pericardial fat or effusion. Mild left atrial enlargement by 2D. Right cardiac chamber sizes are within normal limits. Focal aortic valve sclerosis with adequate cusp excursion Thickened mitral valve leaflets with normal excursion. Mild mitral annulus and aortic root calcification. Pulmonic valve not well visualized. Normal tricuspid valve structure. IVC is normal in size with physiologic collapse. Probable pacemaker wire present in the right side chambers. Small echodensity seen on mitral valve leaflet (vegitation). Consider JUAN if clinically indicated. A color flow and spectral Doppler study was performed and revealed: No aortic regurgitation. Trace mitral regurgitation. Left ventricular diastolic dysfunction grade 1. No tricuspid regurgitation. Tricuspid systolic velocities suggests peak right ventricular systolic pressure of 19 mmHg
--- NOTE | 2016-06-02 08:29 | Cardiology Report ---
APPROVED REPORT EKG Measurement Heart [id number] Normal sinus rhythm Rightward axis Nonspecific ST abnormality Abnormal ECG
== END 2016-05-01 21:20 | DRG 871 ==
LOC: EDBD 17:35 → EMR 18:47 → 2E 21:23 → EDBEDREQ 22:06 → EDBEDREQSVC 23:05 → EDBEDREQ 23:59 → 4W 04-27 19:57
PROC: 5A1D60Z (ICD-10-PCS; 2016-04-26)
PROC: 30233N1 Transfusion of Nonautologous Red Blood Cells into Peripheral Vein, Percutaneous Approach (ICD-10-PCS; principal; 2016-04-29)
PROC: 05HM33Z Insertion of Infusion Device into Right Internal Jugular Vein, Percutaneous Approach (ICD-10-PCS; 2016-04-30)
DX: A41.51 Sepsis due to Escherichia coli [E. coli] (principal); I50.33 Acute on chronic diastolic (congestive) heart failure; N17.9 Acute kidney failure, unspecified; L89.514 Pressure ulcer of right ankle, stage 4; G93.40 Encephalopathy, unspecified; L89.894 Pressure ulcer of other site, stage 4; L89.614 Pressure ulcer of right heel, stage 4; E87.0 Hyperosmolality and hypernatremia; I96 Gangrene, not elsewhere classified; N18.6 End stage renal disease; I82.409 Acute embolism and thrombosis of unspecified deep veins of unspecified lower extremity; I12.0 Hypertensive chronic kidney disease with stage 5 chronic kidney disease or end stage renal disease; N39.0 Urinary tract infection, site not specified; F20.0 Paranoid schizophrenia; I82.509 Chronic embolism and thrombosis of unspecified deep veins of unspecified lower extremity; Z43.1 Encounter for attention to gastrostomy; I48.0 Paroxysmal atrial fibrillation; F03.90 Unspecified dementia, unspecified severity, without behavioral disturbance, psychotic disturbance, mood disturbance, and anxiety; E86.0 Dehydration; E11.22 Type 2 diabetes mellitus with diabetic chronic kidney disease; Z86.718 Personal history of other venous thrombosis and embolism; Z99.2 Dependence on renal dialysis; E66.01 Morbid (severe) obesity due to excess calories; R13.10 Dysphagia, unspecified; K56.41 Fecal impaction; E83.52 Hypercalcemia; D63.1 Anemia in chronic kidney disease; I73.9 Peripheral vascular disease, unspecified; I25.2 Old myocardial infarction; J44.9 Chronic obstructive pulmonary disease, unspecified; F41.9 Anxiety disorder, unspecified; S82.892D Other fracture of left lower leg, subsequent encounter for closed fracture with routine healing; E78.5 Hyperlipidemia, unspecified; R65.20 Severe sepsis without septic shock; I48.91 Unspecified atrial fibrillation; E11.21 Type 2 diabetes mellitus with diabetic nephropathy; E11.65 Type 2 diabetes mellitus with hyperglycemia; M19.90 Unspecified osteoarthritis, unspecified site; I77.89 Other specified disorders of arteries and arterioles; L89.151 Pressure ulcer of sacral region, stage 1; L89.321 Pressure ulcer of left buttock, stage 1; L89.311 Pressure ulcer of right buttock, stage 1
CPT/HCPCS: 36415; 36569; 36589; 71010; 74000; 76775; 76937; 80048; 80053; 80202; 81001; 81003; 82043; 82044; 82270; 82378; 82436; 82550; 82570; 82607; 82728; 82746; 82947; 82962; 83540; 83550; 83605; 83880; 83930; 83935; 84100; 84133; 84300; 84439; 84443; 84484; 85007; 85025; 85044; 85610; 85651; 85730; 86140; 86850; 86900; 86901; 86920; 87040; 87070; 87081; 87086; 87181; 87205; 89050; 93005; 93306; 93880; 93925; 93970; 94664; J1815; S5561